=== PATIENT | male | born 1950 | race Caucasian/White ===

== ENCOUNTER → 2016-04-26 | Outpatient (CLI) | payer OTHER ==
[2016-04-26 09:00] LABS: Basophils % (A) 0 %; CH 32.1; CHCM 37.3; Eosinophils # (A) 0.1 k/uL (0-0.7); Eosinophils % (A) 2 %; HCT 43.6 % (39.0-53.0); HDW 3.53; HGB 15.4 gm/dL (13.0-17.5); Hyperchromasia Slight; Luc # (Auto) 0.17; Luc % (Auto) 2; Lymphocytes # (A) 2.5 k/uL (1.0-4.8); Lymphocytes % (A) 34 %; MCH 30.5 pg (25.0-35.0); MCHC 35.3 g/dL (31.0-37.0); MCV 86.4 fL (80.0-100.0); Monocytes # (A) 0.5 k/uL (0-1.0); Monocytes % (A) 7 %; Neutrophils # (A) 4.2 k/uL (1.3-7.7); Neutrophils % (A) 56 %; Poikilocytosis Slight; RBC 5.05 m/uL (4.30-5.90); RDW 13.8 % (11.5-15.5); WBC 7.4 k/uL (3.8-10.6); WBC (Perox) 7.71
[2016-04-26 10:18] LABS: Calcium 9.5 mg/dL (8.4-10.2); Total Protein 6.5 g/dL (6.3-8.2)
== END | disposition home or self-care (01) ==
LOC: LABWHC1 07:55
PROVIDERS: ATTEND Internal Medicine
DX: Z00.00 Encounter for general adult medical examination without abnormal findings (principal); E78.2 Mixed hyperlipidemia; I10 Essential (primary) hypertension; E03.9 Hypothyroidism, unspecified; E27.1 Primary adrenocortical insufficiency; E29.1 Testicular hypofunction; Z12.5 Encounter for screening for malignant neoplasm of prostate
CPT/HCPCS: 80061; 80053; 84443; 85025; 84402; 84403; 36415; G0103

== ENCOUNTER → 2017-04-16 | Outpatient (CLI) | payer MEDICARE ==
[2017-04-16 09:52] LABS: HCT 43.1 % (39.0-53.0); HGB 14.4 gm/dL (13.0-17.5); MCH 30.7 pg (25.0-35.0); MCHC 33.4 g/dL (31.0-37.0); MCV 91.8 fL (80.0-100.0); Mean Platelet Volume 6.7; Platelet Count 182 k/uL (150-450); Poikilocytosis Slight; RBC 4.69 m/uL (4.30-5.90); RDW 15.9 % (11.5-15.5); WBC 8.8 k/uL (3.8-10.6)
[2017-04-16 10:04] LABS: Partial Thromboplastin Time 22.5 sec (22.0-30.0); Prothrombin Time 9.9 sec (9.0-12.0)
[2017-04-16 10:08] LABS: Appearance,Urine Clear (Clear); Bilirubin,Urine Negative (Negative); Blood,Urine Small (Negative); Color,Urine Yellow; Glucose,Urine (UA) Negative (Negative); Ketones,Urine Negative (Negative); Leukocyte Esterase,Urine Negative (Negative); Mucus,Urine Rare /hpf; Nitrite,Urine Negative (Negative); Protein,Urine Negative (Negative); RBC,Urine 4 /hpf (0-5); Specific Gravity,Urine 1.017 (1.001-1.035); Urobilinogen,Urine <2.0 mg/dL (<2.0); WBC,Urine <1 /hpf (0-5)
[2017-04-16 10:24] LABS: Albumin 4.3 g/dL (3.5-5.0); Calcium 9.8 mg/dL (8.4-10.2); Potassium 3.5 mmol/L (3.5-5.1); Total Bilirubin 0.7 mg/dL (0.2-1.3); Total Protein 6.7 g/dL (6.3-8.2)
== END | disposition home or self-care (01) ==
LOC: LABPAT 09:09
PROVIDERS: ATTEND Orthopaedic Surgery Sports Medicine
DX: Z01.812 Encounter for preprocedural laboratory examination (principal); Z79.01 Long term (current) use of anticoagulants
CPT/HCPCS: 36415; 80053; 81001; 85027; 85610; 85730; 87070

== ENCOUNTER → 2017-05-07 | Outpatient (CLI) | payer MEDICARE ==
[2017-05-07 08:54] LABS: Basophils % (A) 0 %; Eosinophils # (A) 0.1 k/uL (0-0.7); Eosinophils % (A) 2 %; HGB 14.9 gm/dL (13.0-17.5); Hyperchromasia Slight; Lymphocytes # (A) 2.4 k/uL (1.0-4.8); Lymphocytes % (A) 29 %; MCH 31.5 pg (25.0-35.0); MCHC 35.5 g/dL (31.0-37.0); MCV 88.6 fL (80.0-100.0); Mean Platelet Volume 6.3; Monocytes # (A) 0.5 k/uL (0-1.0); Monocytes % (A) 6 %; Neutrophils % (A) 62 %; Platelet Count 198 k/uL (150-450); Poikilocytosis Slight; RBC 4.75 m/uL (4.30-5.90); RDW 13.9 % (11.5-15.5); WBC 8.1 k/uL (3.8-10.6)
[2017-05-07 09:11] LABS: Albumin 4.3 g/dL (3.5-5.0); Calcium 9.4 mg/dL (8.4-10.2); Potassium 3.8 mmol/L (3.5-5.1); Total Bilirubin 0.7 mg/dL (0.2-1.3); Total Protein 6.6 g/dL (6.3-8.2)
== END | disposition home or self-care (01) ==
LOC: LABWHC1 08:15
PROVIDERS: ATTEND Internal Medicine Endocrinology, Diabetes & Metabolism
DX: E06.3 Autoimmune thyroiditis (principal); E23.0 Hypopituitarism; E27.1 Primary adrenocortical insufficiency
CPT/HCPCS: 36415; 80053; 84244; 85025

== ENCOUNTER → 2017-05-08 | Outpatient (CLI) | payer MEDICARE ==
[2017-05-08 08:43] LABS: Basophils % (A) 0 %; Eosinophils # (A) 0.1 k/uL (0-0.7); Eosinophils % (A) 2 %; HCT 41.2 % (39.0-53.0); HGB 14.4 gm/dL (13.0-17.5); Lymphocytes # (A) 2.4 k/uL (1.0-4.8); Lymphocytes % (A) 27 %; MCHC 34.9 g/dL (31.0-37.0); MCV 88.9 fL (80.0-100.0); Mean Platelet Volume 7.1; Monocytes # (A) 0.5 k/uL (0-1.0); Monocytes % (A) 6 %; Neutrophils # (A) 5.7 k/uL (1.3-7.7); Neutrophils % (A) 64 %; Platelet Count 171 k/uL (150-450); Poikilocytosis Slight; RBC 4.63 m/uL (4.30-5.90); WBC 8.9 k/uL (3.8-10.6)
[2017-05-08 11:54] LABS: T4, Free (Free Thyroxine) 1.01 ng/dL (0.78-2.19)
== END | disposition home or self-care (01) ==
LOC: LABWHC1 07:53
PROVIDERS: ATTEND Internal Medicine
DX: E55.9 Vitamin D deficiency, unspecified (principal); H81.10 Benign paroxysmal vertigo, unspecified ear; I10 Essential (primary) hypertension; E27.1 Primary adrenocortical insufficiency; E29.1 Testicular hypofunction
CPT/HCPCS: 36415; 80061; 82306; 84402; 84403; 84439; 84443; 84481; 85025

== ENCOUNTER → 2017-05-21 | Outpatient (CLI) | payer MEDICARE ==
[2017-05-21 08:36] LABS: HCT 41.6 % (39.0-53.0); HGB 14.6 gm/dL (13.0-17.5); MCH 31.9 pg (25.0-35.0); MCV 91.2 fL (80.0-100.0); Mean Platelet Volume 6.4; Platelet Count 161 k/uL (150-450); Poikilocytosis Slight; RBC 4.56 m/uL (4.30-5.90); RDW 14.2 % (11.5-15.5)
[2017-05-21 08:38] LABS: Appearance,Urine Clear (Clear); Bilirubin,Urine Negative (Negative); Blood,Urine Negative (Negative); Color,Urine Yellow; Glucose,Urine (UA) Negative (Negative); Ketones,Urine Negative (Negative); Leukocyte Esterase,Urine Negative (Negative); Nitrite,Urine Negative (Negative); Protein,Urine Negative (Negative); Specific Gravity,Urine 1.015 (1.001-1.035); Urobilinogen,Urine <2.0 mg/dL (<2.0)
[2017-05-21 08:43] LABS: Partial Thromboplastin Time 23.6 sec (22.0-30.0); Prothrombin Time 10.2 sec (9.0-12.0)
[2017-05-21 08:53] LABS: Albumin 4.3 g/dL (3.5-5.0); Calcium 9.9 mg/dL (8.4-10.2); Potassium 3.8 mmol/L (3.5-5.1); Total Bilirubin 0.8 mg/dL (0.2-1.3); Total Protein 6.6 g/dL (6.3-8.2)
== END | disposition home or self-care (01) ==
LOC: LABPAT 08:09
PROVIDERS: ATTEND Orthopaedic Surgery Sports Medicine
DX: Z01.812 Encounter for preprocedural laboratory examination (principal); Z51.81 Encounter for therapeutic drug level monitoring; Z79.01 Long term (current) use of anticoagulants
CPT/HCPCS: 80053; 81003; 85027; 85610; 85730

== ENCOUNTER → 2017-05-31 | Outpatient (CLI) | payer MEDICARE | END | disposition home or self-care (01) | LOC: LABWHC1 07:43 | PROVIDERS: ATTEND Internal Medicine Endocrinology, Diabetes & Metabolism | DX: E27.1 Primary adrenocortical insufficiency (principal); E23.0 Hypopituitarism; E06.3 Autoimmune thyroiditis | CPT/HCPCS: 36415; 84402; 84403 ==

== ENCOUNTER 2017-06-06 12:55 | Inpatient (IN) | payer MEDICARE ==
[2017-05-31 15:53] VITALS: BMI 26.4
[~2017-06-06 12:55] MED LIST: ACETAMINOPHEN TAB 500 MG TAB PO ONE; CLINDAMYCIN 900 MG in DEXTROSE 5% IN WATER 50 ML IVPB ONE; MELOXICAM 7.5 MG TAB PO ONE; ROPIVACAINE 246.25 MG, EPINEPHrine 0.5 MG, KETOROLAC 30 MG, cloNIDine HCL/PF 80 MCG, WA... MISCELLANE ONE; TRANEXAMIC ACID 1,000 MG in SODIUM CHLORIDE 0.9% 50 ML IVPB ONE; VANCOMYCIN IV PER PHARMACY 1 EACH MISC MISCELLANE PRN; fentaNYL (PF) 50 MCG/ML 2 ML AMP IV PRN
[2017-06-06] MEDS: LACTATED RINGERS 1,000 ML IV SCH ×4 (13:52→23:44)
[2017-06-06] MEDS: VANCOMYCIN 1,500 MG in SODIUM CHLORIDE 0.9% 250 ML IVPB ONE ×2 (14:00→14:05)
[2017-06-06] MEDS ORDERED: ceFAZolin 1,000 MG in DEXTROSE/WATER 1 50ML.BAG IVPB STA (14:09)
[2017-06-06] MEDS: ONDANSETRON 4 MG/2 ML VIAL IVP ONE ×2 (14:14→23:39)
[2017-06-06 14:40] LABS: Glucose,Whole Blood 82 mg/dL (75-99)
[2017-06-06] MEDS ORDERED: HYDROCORTISONE SUCCINATE 100 MG/2 ML VIAL IVP ONE (15:21)
[2017-06-06] MEDS ORDERED: MIDAZOLAM 2 MG/2 ML VIAL IVP ONE (15:45)
[2017-06-06] MEDS ORDERED: DIAZEPAM 5 MG TAB PO PRN (16:06)
[2017-06-06] MEDS ORDERED: MAGNESIUM HYDROXIDE 2,400 MG/10 ML CUP PO PRN (16:06)
[2017-06-06] MEDS ORDERED: TEMAZEPAM 15 MG CAP PO PRN (16:06)
[2017-06-06] MEDS ORDERED: hydrOXYzine PAMOATE 25 MG CAP PO PRN (16:06)
[2017-06-06] MEDS ORDERED: ONDANSETRON 4 MG/2 ML VIAL IVP PRN (16:06)
[2017-06-06] MEDS ORDERED: ACETAMINOPHEN TAB 325 MG TAB PO PRN (16:06)
[2017-06-06] MEDS ORDERED: HYDROmorphone 0.5 MG/0.5 ML SYRINGE IVP PRN ×3 (16:06)
[2017-06-06] MEDS ORDERED: HYDROcodone/APAP 10-325MG 1 EACH TAB PO PRN (16:06)
[2017-06-06] MEDS ORDERED: NA PHOS,M-B/NA PHOS,DI-BA 133 ML ENEMA RECTAL PRN (16:06)
[2017-06-06] MEDS ORDERED: BISACODYL 10 MG SUPP RECTAL PRN (16:06)
[2017-06-06] MEDS ORDERED: NALOXONE 0.4 MG/ML 1 ML VIAL IV PRN (16:06)
[2017-06-06] MEDS ORDERED: PROPOFOL 10 MG/ML 20 ML VIAL IV ONE (16:25)
[2017-06-06] MEDS ORDERED: fentaNYL (PF) 50 MCG/ML 2 ML AMP ONE (16:25)
[2017-06-06] MEDS ORDERED: MIDAZOLAM 2 MG/2 ML VIAL ONE (16:25)
[2017-06-06] MEDS ORDERED: diphenhydrAMINE 50 MG/ML 1 ML VIAL ONE (16:25)
[2017-06-06] MEDS ORDERED: SODIUM CHLORIDE 0.9% 50 ML with ceFAZolin 1,000 MG IV ONE ×2 (16:34)
[2017-06-06] MEDS ORDERED: CLINDAMYCIN 1,800 MG in SODIUM CHLORIDE 0.9% IRRIGATIO 3,000 ML IRRIGATION ONE (16:40)
[2017-06-06] MEDS ORDERED: ceFAZolin 3,000 MG in SODIUM CHLORIDE 0.9% IRRIGATIO 3,000 ML IRRIGATION ONE (16:57)
[2017-06-06] MEDS ORDERED: WARFARIN 2.5 MG TAB PO ONE (18:30)
--- NOTE | 2017-06-06 19:37 | XR ---
PROCEDURE: XR knee limited RT DATE AND TIME: 06/06/2017 6:45 PM REFERRING PHYSICIAN: Kishor Alan CLINICAL INDICATION: PHH, Evaluation for Postop abnormality and alignment TECHNIQUE: Department protocol. COMPARISON: None FINDINGS: AP and crosstable lateral views were obtained. The TKR appears anatomic in its position and alignment. Postprocedural changes are noted anteriorly, but no unexpected post procedural findings. IMPRESSION: Postoperative study.
--- NOTE | 2017-06-06 22:30 | P.CONS ---
History of Present Illness - Reason for Consult Consult date: 06/07/17 medical management Requesting physician: Eleuterio Sawyer - Chief Complaint elective right TKA - History of Present Illness 66-year-old male with past medical history of Couderay disease, patient presented with history of progressive degenerative joint disease of the right knee for which conservative medical management has not provided the desired comfort and relief for which he decided with his surgeon to have right knee joint replacement. He tolerated procedure well patient was seen postoperative he tolerated liquid diet, passed urine utilizing intermittent catheter, patient reported passing gases, denies any nausea or vomiting denies any abdominal pain headache denies any chest pain or trouble breathing. Patient is chronically on Cortef and currently was switched to IV hydrocortisone for the perioperative management of Couderay disease. Review of Systems Constitutional: Patient denies fever, denies chills, denies night sweating, denies significant weight changes Eyes: Patient denies visual changes, denies eye pain ENT: Patient denies ear pain, denies rhinorrhea, denies sore throat Cardiovascular: Patient denies chest pain, denies exertional dyspnea, denies peripheral leg edema, denies orthopnea, denies paroxysmal nocturnal dyspnea Respiratory:Patient denies cough, denies wheezing, denies shortness of breath Gastrointestinal: Patient denies diarrhea, denies constipation, denies nausea , denies vomiting, denies abdominal pain Genitourinary: Patient denies dysuria, denies hematuria, denies changes in urinary habits, denies genital lesions Musculoskeletal: Patient denies muscle pain, reports long history of osteoarthritis Psychiatric: Patient denies changes in mood or memory, denies suicidal ideation, denies anxiety Endocrine: Patient denies heat intolerance, denies cold intolerance, denies excessive thirst, denies polyuria Neurological: Patient denies focal neurologic deficits, denies weakness, denies numbness, denies tingling Hem/Lymphatic: Patient denies bleeding tendency, denies bruising, denies swollen lymph glands Allergic/Immun: Patient denies recent allergic reactions Skin: Patient denies rashes, denies pruritis, denies ulcers Past Medical History Past Medical History: Hypertension Additional Past Medical History / Comment(s): ADDISONS DISEASE. ,ASTHMA A CHILD., VARICOSE VEINS, OCCASIONAL BACK PAIN. History of Any Multi-Drug Resistant Organisms: None Reported Past Surgical History: Orthopedic Surgery, Tonsillectomy Additional Past Surgical History / Comment(s): LEFT ANKLE FX WITHS SURGERY X3. Past Anesthesia/Blood Transfusion Reactions: No Reported Reaction Past Psychological History: No Psychological Hx Reported Smoking Status: Never smoker Past Alcohol Use History: None Reported Past Drug Use History: None Reported - Past Family History Mother Family Medical History: No Reported History family Family Medical History: Coronary Artery Disease (CAD) (Patient reports strong history of coronary artery disease on his paternal side of the family) Medications and Allergies Home Medications Medication Instructions Recorded Confirmed Type Allopurinol [Zyloprim] 100 mg PO DAILY 05/31/17 06/06/17 History Cholecalciferol [Vitamin D3] 1,000 unit PO DAILY 05/31/17 06/06/17 History Depo-Testosterone Injection 1 dose IM QMONTH 05/31/17 06/06/17 History Fludrocortisone [Florinef] 0.1 mg PO DAILY 05/31/17 06/06/17 History Hydrocortisone [Cortef] 10 mg PO W/SUPPER 05/31/17 06/06/17 History Hydrocortisone [Cortef] 20 mg PO QAM 05/31/17 06/06/17 History Lactulose 10 gm PO BID 05/31/17 06/06/17 History Levothyroxine Sodium [Synthroid] 75 mcg PO DAILY 05/31/17 06/06/17 History Metoprolol Succinate [Toprol XL] 25 mg PO DAILY 05/31/17 06/06/17 History Allergies Allergy/AdvReac Type Severity Reaction Status Date / Time Penicillins AdvReac Unknown Unknown Verified 06/06/17 19:33 aspirin AdvReac INSTRUCTED Verified 06/06/17 19:33 NOT TO TAKE DUE TO ADDISONS. Physical Exam Vitals: Vital Signs Temp Pulse Resp BP Pulse Ox 06/06/17 19:10 75 16 118/67 99 06/06/17 18:55 73 16 120/68 100 06/06/17 18:40 71 16 120/68 100 06/06/17 18:25 98.4 F 89 14 128/70 99 06/06/17 13:24 97.7 F 72 16 170/100 100 Intake and Output 06/06/17 06/06/17 06/06/17 06:59 14:59 22:59 Intake Total 350 751 Output Total 100 Balance 350 651 Intake: IV 350 751 Output: Estimated Blood Loss 100 Constitutional: No acute distress, conversant, pleasant Eyes: Anicteric sclerae, moist conjunctiva, no lid-lag Pupils equal round reactive to light ENMT: NC/AT Oropharynx clear, no erythema, exudates Neck: Supple, FROM, no masses, or JVD No carotid bruits No thyromegaly Lungs: Clear to auscultation Clear to percussion Normal respiratory effort, no accessory muscle use Cardiovascular: Heart regular in rate and rhythm, No murmurs, gallops, or rubs No peripheral edema Abdominal: Soft Nontender, no guarding, rebound or rigidity Abdomen moving with respiration Normoactive bowel sounds No hepatomegaly, No splenomegaly No palpable mass No abdominal wall hernia noted Skin: Skin tanning Normal temperature, tone, texture, turgor No induration No subcutaneous nodules No rash, lesions No ulcers Extremities: Right knee with surgical dressing looks clean intact and dry No digital cyanosis No clubbing Pedal pulses intact and symmetrical Radial pulses intact and symmetrical No calf tenderness Psychiatric: Alert and oriented to person, place and time Appropriate affect fair judgment Neuro Muscles Strength 5/5 in all 4 extremities (except for limited exam over the right lower extremity due to pain postoperatively) Sensation to light touch grossly present throughout Cranial nerves II-XII grossly intact No focal sensory deficits Lymphatics: no palpable cervical or supraclavicular , or inguinal lymph nodes Assessment and Plan (1) Couderay disease Narrative/Plan: Patient was switched appropriately to IV hydrocortisone agree with the current management Normally I would suggest switching the patient back to his normal regimen on postoperative day #2 Continue to monitor blood sugars and vital signs Current Visit: Yes Status: Acute Code(s): E27.1 - PRIMARY ADRENOCORTICAL INSUFFICIENCY SNOMED Code(s): 217569110 (2) Osteoarthritis of right knee Narrative/Plan: Postoperative day 0 patient tolerated procedure well Pain is well controlled Further management per orthopedic DVT prophylaxis postoperatively currently on Coumadin per ortho Current Visit: Yes Status: Acute Code(s): M17.11 - UNILATERAL PRIMARY OSTEOARTHRITIS, RIGHT KNEE SNOMED Code(s): 349963077292599 (3) Hypertension Narrative/Plan: Currently controlled continue with metoprolol Current Visit: Yes Status: Acute Code(s): I10 - ESSENTIAL (PRIMARY) HYPERTENSION SNOMED Code(s): 27605663 (4) Hypothyroidism Narrative/Plan: continue levothyroxine Current Visit: Yes Status: Chronic Code(s): E03.9 - HYPOTHYROIDISM, UNSPECIFIED SNOMED Code(s): 03563771 (5) DVT prophylaxis Narrative/Plan: On by mouth Coumadin per orthopedic recommendations for postoperative management Current Visit: Yes Status: Acute Code(s): ZTE9375 - SNOMED Code(s): 271557757 Plan: Thank you for allowing us to participate in the care of this patient. Do not hesitate to contact us with questions. Someone can be reached from the [facility] [place] hospitalist group at all hours of the day at [phone].
--- NOTE | 2017-06-06 23:26 | OP ---
OPERATIVE REPORT DATE OF PROCEDURE: 06/06/2017 SURGEON: Eleuterio Sawyer MD [employer]: Kishor BUITRAGO PREOPERATIVE DIAGNOSIS: Right knee osteoarthrosis. POSTOPERATIVE DIAGNOSIS: Right knee osteoarthrosis. OPERATION: Right total knee arthroplasty. ANESTHESIA: Spinal with sedation. ESTIMATED BLOOD LOSS: 100 mL. TOURNIQUET TIME: 54 minutes at 250 mmHg. COMPLICATIONS: None apparent. DRAINS: None. DISPOSITION: Postanesthesia Care Unit. INDICATIONS: Jose Francisco is a very pleasant 66-year-old male with longstanding history of right knee pain. History and physical examination were consist with advanced right knee osteoarthrosis. He has been through significant nonoperative management up to this point. Further treatment options were discussed and he has decided to go forward with right total knee arthroplasty. The risks of the procedure were discussed with him in detail. These risks include but are not limited to risk of infection, nerve damage, bleeding, pain and a risk of deep vein thrombosis which could lead to fatal pulmonary embolism. There is also a risk of loosening of the implant which could require revision operation. The patient understands these risks. All of his questions were answered to his satisfaction. Appropriate informed consent was obtained. DESCRIPTION OF PROCEDURE: The patient was identified in the preoperative holding area. The surgical site was marked by both the patient myself. He was given 1 gram of vancomycin IV for prophylactic purposes. Of note, we did give him a gram of Ancef during the case. He had no adverse reaction to Ancef while under the care of Anesthesia. He was then transferred to the operative suite, where he was placed supine on the operative table. Spinal anesthetic was then administered and dosed per the anesthesia department without apparent complications. Examination under anesthesia was then performed. The patient was approximately 5 degrees shy of full extension. He had 100 degrees of flexion, and the medial collateral ligament, lateral collateral ligament and posterior cruciate ligaments were stable. Tourniquet was then placed high on the right upper thigh, well padded in preparation for surgery. The patient's right lower extremity was then prepped and draped in the usual sterile fashion. Standard surgical pause was then undertaken to ensure that we were operating on the correct site and that appropriate preoperative antibiotics had been given. All staff in the room were in agreement and we proceeded. The outlines of the patella were marked with a surgical pen. A planned 12 cm vertical incision centered over the patella was marked with the surgical pen. The leg was then exsanguinated with an Esmarch dressing. The knee was then flexed and the tourniquet inflated to 250 mmHg. The total tourniquet time for the procedure was 54 minutes. Incision was then made with a 10 blade scalpel. Dissection was carried down sharply to the overlying fascia. Great care was taken to minimize the skin flaps. The knee was then exposed using a standard medial parapatellar approach. A small cuff of quadriceps tendon was left for suturing. He was in a bit of varus preoperatively. A standard medial release was then made. The superficial medial collateral ligament was dissected off of the bone around to the posterior aspect of the proximal tibia. The medial meniscus was then excised as well. The lateral meniscus was also released anteriorly. The leg was then externally rotated. The patella was everted. The knee was flexed. The retractors were then placed to protect the collateral ligaments. I then proceeded to remove the infrapatellar fat pad. This was excised sharply tangentially with fibers of the patellar tendon. I then proceeded to remove peripheral osteophytes. This was done with a rongeur. I then proceeded with the distal femoral resection. He did have a small flexion contracture. I planned to take an extra 2 mm of bone from the distal femur. The femoral canal was then entered in the midline of the femur approximately 10 mm anterior to the origin of the posterior cruciate ligament. The lidia was then advanced down the center of the femur and placed intramedullary. Based on preoperative radiographs, the angle between the anatomic and mechanical axis of the femur was approximately 4 to 5 degrees. The valgus angle of the distal femoral cutting guide was then set at 4 degrees for the right knee. The distal femoral cutting guide was then advanced over the intramedullary lidia. This was seated firmly against the femur. I then as mentioned planned to take 11 mm off the distal femur. The cutting block was then secured onto the femur with pins. The jig was then removed. The distal femoral cut was made through the slot of the block. The pins were then removed and the distal femoral cutting block was removed. The accuracy of the distal femoral cuts was checked with 2 flat bars. I then proceeded with femoral sizing. The posterior referencing sizing guide was held firmly against the resected distal surface of the femur. Posterior condyles were resting on the posterior plane of the guide. The sizing stylus was then placed onto the anterior femur. The size was measured as a size 9. I then assessed for femoral rotation. The plan was for 3 degrees of external rotation. Three degrees of external rotation was placed onto the jig. These holes were then marked. I then confirmed the rotation by 3 separate methods. This was done using epicondylar axis as well as Whitesides line and posterior referencing. It was deemed that the external rotation was proper. I then went forward with placing the femoral cutting block. This was placed over the previously placed pin holes. The Maikel wing was then placed onto the anterior slots to ensure that we would not notch the anterior femur with the anterior femoral cut. I then proceeded with the anterior femoral cut. This was flush with the anterior cortex of the femur. Posterior cuts were then made followed by the anterior chamfer cut and then the posterior chamfer cut. The cutting block was then removed. Throughout the resection, the collateral ligaments were protected with retractors. I then placed a trial size 9 femur. It fit very nicely medial to lateral and fit flush with the distal end of the femur. The drill holes were then made. I then proceeded with the tibial cut. I planned for a cruciate-retaining knee. The guide was placed and set for varus, valgus and for slope. The height was set for an approximate 2 mm resection from the medial tibial plateau, which was the lower side. I was happy with the alignment and the amount of resection. The cutting block was then pinned to the proximal tibia. The alignment lidia was removed and the proximal tibia was resected with a reciprocating saw. Again this was done with retractors protecting the collateral ligaments as well as the posterior cruciate ligament. I then proceeded to evaluate the flexion and extension gaps. A 10 mm block was placed. The flexion and extension gaps were equal. I then proceeded with resection of the posterior osteophytes. He had mild posterior osteophytes. This was done using a curved osteotome. This resected the posterior osteophytes, and posterior capsule stripping was also done off the posterior aspect of the femur at this time. The osteophytes were removed. I then proceeded with resection of the patella. The thickness of the patella was measured using the caliper. The thickness was 25 mm. The thickness of the anticipated patellar dome was taken into account. Resection was then performed and confirmed to be equal in 4 quadrants using a caliper. Approximately 14 mm of bone remained after the resection. A 38 x 9.5 mm standard patellar trial was then placed. The holes were then drilled and the trial was then placed. I then proceeded with sizing the tibial plate. A size G tibial plate fit very nicely. I then placed the trial femur, the tibial tray and the patellar button. A 10 mm trial tibial insert was also placed. The components fit very nicely. He had full extension and flexion. The extension and flexion gaps were equal and stable to both varus and valgus stress. The patella tracked appropriately. Tibial tray rotation was marked with a Bovie. This was externally rotated properly. I then proceeded with tibial preparation. I first drilled the femoral holes and removed the femoral component. The tibial tray was then set for proper external rotation as well as mediolateral placement onto the tibia. It was then pinned into place. I then proceeded with punching the keel. I then decided to proceed with cementing of all of our components. The knee was thoroughly irrigated with sterile saline solution via pulse lavage. The lateral geniculate artery was identified and cauterized. All blood was removed from the bone of the tibia, femur and patella with pulse lavage. I then proceeded with cementing. Two packs of antibiotic bone cement were prepared on the back table by the surgical instrument technician. I then proceed with cementing the tibia first. The cement was impacted into the keel as well as deeply seated into the bone. A second coat of cement was then placed. The tibia was then impacted into place. Excess cement was removed with Vicki's and jokers. I then proceeded with cementing of the femoral component. The femoral component was also cemented using standard technique. Excess cement was removed. A 10 mm trial insert was then placed into the knee. It was brought into full extension with a constant axial load placed until the cement had hardened. The patellar component was then cemented. This was held firmly with a compressive device until the cement had dried. When the cement had dried, the knee was taken out of extension. All excess cement was removed from around the prosthesis. I then trialed the knee with a 10 mm insert. The flexion and extension gaps were appropriate. The knee was stable. It came into full extension. I decided to go forward with a 10 mm cross-linked cruciate-retaining tibial insert. The polyethylene was then placed on the tibial tray and locked into place. The knee was then reduced. The knee was again further irrigated with sterile saline solution with antibiotic added. The tourniquet was then deflated. The total tourniquet time for the procedure was 54 minutes at 250 mmHg. Final components were a Misti Persona size 9 cruciate-retaining femoral component, a size G tibial tray, a 10 mm medial- congruent cruciate-retaining polyethylene insert, and a 38 x 9.5 patella. I then proceeded with closure. Again the knee was thoroughly irrigated. The quadriceps tendon and the medial retinaculum were reapproximated with #2 Ethibond suture. The extensor mechanism was then closed with a running #2 Quill suture. Subcutaneous tissues were then closed with 2-0 Vicryl interrupted suture. The skin was closed with a running 3-0 Quill suture. Dermabond was applied to the incision. Sterile compressive dressings were then applied. All sponge and needle counts were deemed correct prior to closure. The patient tolerated the procedure without apparent complication. He was transferred to the recovery room in stable condition. MMODL / IJN: [id number] /
[2017-06-06] MEDS: SENNOSIDES-DOCUSATE SODIUM 1 EACH TAB PO SCH (23:48)
[2017-06-07] MEDS: HYDROCORTISONE SUCCINATE 100 MG/2 ML VIAL IV SCH ×3 (00:12→15:21)
[2017-06-07] MEDS: ceFAZolin IN SWFI 2 GM/20 ML SYRINGE IVP SCH ×2 (00:13→09:17)
[2017-06-07] MEDS: LACTATED RINGERS 1,000 ML IV SCH ×3 (03:17→21:14)
[2017-06-07 07:18] LABS: INR 1.1 (<1.2)
[2017-06-07 07:24] LABS: Basophils % (A) 0 %; Eosinophils % (A) 0 %; HCT 38.4 % (39.0-53.0); HGB 13.5 gm/dL (13.0-17.5); Hyperchromasia Slight; Lymphocytes % (A) 9 %; MCHC 35.2 g/dL (31.0-37.0); Mean Platelet Volume 6.3; Monocytes # (A) 0.4 k/uL (0-1.0); Monocytes % (A) 4 %; Neutrophils # (A) 9.1 k/uL (1.3-7.7); Neutrophils % (A) 86 %; Platelet Count 149 k/uL (150-450); Poikilocytosis Slight; RBC 4.37 m/uL (4.30-5.90); RDW 13.3 % (11.5-15.5); WBC 10.5 k/uL (3.8-10.6)
[2017-06-07] MEDS: traMADol 50 MG TAB PO PRN ×3 (08:27→21:09)
[2017-06-07] MEDS: LEVOTHYROXINE 75 MCG TAB PO SCH (09:17)
[2017-06-07] MEDS: METOPROLOL SUCCINATE (ER) 25 MG TAB.ER.24H PO SCH (09:17)
[2017-06-07] MEDS: ALLOPURINOL 100 MG TAB PO SCH (09:17)
[2017-06-07] MEDS: LACTULOSE 20 GM/30 ML CUP PO SCH ×2 (09:17→21:11)
--- NOTE | 2017-06-07 12:16 | P.PN ---
Subjective Progress Note Date: 06/07/17 Principal diagnosis: Knee pain/severe osteoarthritis Patient is doing well, still having pain in his knee but is tolerable. Has been working with physical therapy and actually walked around the [place] this [place]. Objective - Vital Signs Vital signs: Vital Signs Temp 98.7 F 06/07/17 07:00 Pulse 91 06/07/17 07:00 Resp 16 06/07/17 07:00 BP 158/80 06/07/17 07:00 Pulse Ox 99 06/07/17 07:00 Intake & Output 06/06/17 06/07/17 06/07/17 18:59 06:59 18:59 Intake Total 701 400 Output Total 100 1150 Balance 601 -750 Weight 88.451 kg 88.451 kg Intake: IV 701 400 Output: Urine 1150 Estimated Blood Loss 100 Other: Voiding Method Toilet # Voids 1 1 - Exam Constitutional: No acute distress, conversant, pleasant Eyes:Anicteric sclerae, moist conjunctiva, no lid-lag, PERRLA, ENMT: Oropharynx clear, no erythema, exudates Neck: Supple, FROM, no masses, or JVD, No carotid bruits, No thyromegaly Lungs: Clear to auscultation, Clear to percussion, Normal respiratory effort, no accessory muscle use Cardiovascular: Heart regular in rate and rhythm, No murmurs, gallops, or rubs, No peripheral edema Abdominal: Soft, Nontender, no guarding, rebound or rigidity, Normoactive bowel sounds, No hepatomegaly, No splenomegaly, No palpable mass Skin: Normal temperature, tone, texture, turgor, no induration, No subcutaneous nodules, No rash, lesions, No ulcers Extremities: Right knee with surgical dressing looks clean intact and dry. No digital cyanosis, No clubbing, Pedal pulses intact and symmetrical, Radial pulses intact and symmetrical, No calf tenderness Psychiatric: Alert and oriented to person, place and time, appropriate affect, intact judgement Neuro: Muscles Strength 5/5 in all 4 extremities, Sensation to light touch grossly present throughout, Cranial nerves II-XII grossly intact, no focal sensory deficits - Labs CBC & Chem 7: 06/07/17 06:50 Labs: Abnormal Lab Results - Last 24 Hours (Table) 06/07/17 Range/Units 06:50 Hct 38.4 L (39.0-53.0) % Plt Count 149 L (150-450) k/uL Neutrophils # 9.1 H (1.3-7.7) k/uL Assessment and Plan Plan: (1) El disease Continue IV hydrocortisone, Plan for discharge tomorrow, can switch back to baseline steroid dose upon discharge. (2) Osteoarthritis of right knee S/P total right knee arthroplasty Postoperative day 1 patient tolerated procedure well Pain is well controlled Further management per orthopedic (3) Essential hypertension Currently controlled continue with metoprolol (4) Hypothyroidism Continue levothyroxine (5) DVT prophylaxis On coumadin per orthopedic recommendations for postoperative management
[2017-06-07] MEDS: MULTIVITAMINS, THERA 1 EACH TAB PO SCH (12:18)
[2017-06-07] MEDS ORDERED: HYDROmorphone 2 MG TAB PO PRN ×3 (14:42→14:43)
[2017-06-07] MEDS ORDERED: WARFARIN 7.5 MG TAB PO ONE (18:00)
[2017-06-07] MEDS: SENNOSIDES-DOCUSATE SODIUM 1 EACH TAB PO SCH (21:11)
[2017-06-08] MEDS: HYDROCORTISONE SUCCINATE 100 MG/2 ML VIAL IV SCH (00:05)
[2017-06-08 01:42] VITALS: RESP 16
[2017-06-08] MEDS: HYDROcodone/APAP 10-325MG 1 EACH TAB PO PRN ×2 (06:25→12:32)
[2017-06-08] MEDS: LEVOTHYROXINE 75 MCG TAB PO SCH (06:25)
[2017-06-08] MEDS ORDERED: HYDROCORTISONE SUCCINATE 100 MG/2 ML VIAL IV ONE ×2 (07:00→16:00)
[2017-06-08 07:51] LABS: INR 1.2 (<1.2); Prothrombin Time 11.3 sec (9.0-12.0)
[2017-06-08] MEDS: LACTATED RINGERS 1,000 ML IV SCH (08:25)
[2017-06-08] MEDS: ALLOPURINOL 100 MG TAB PO SCH (08:26)
[2017-06-08] MEDS: LACTULOSE 20 GM/30 ML CUP PO SCH (08:27)
[2017-06-08] MEDS: METOPROLOL SUCCINATE (ER) 25 MG TAB.ER.24H PO SCH (08:28)
[2017-06-08 08:51] VITALS: BP 127/71; PULSE 87; TEMP 98.7
--- NOTE | 2017-06-08 09:39 | P.DS ---
Providers Date of admission: 06/06/17 12:55 Expected date of discharge: 06/08/17 Attending physician: Eleuterio Sawyer Consults: 06/06/17 16:06 Consult Physician Routine Consulting Provider: Yulissa Knutson Consult Reason/Comments: post op medical management Do you want consulting provider notified?: Yes 06/06/17 16:11 Consult Physician Routine Consulting Provider: Honey Parrish Consult Reason/Comments: post op ryan's management Do you want consulting provider notified?: Yes Primary care physician: Bienvenido Schroeder - Discharge Diagnosis(es) (1) Status post total knee replacement, right Current Visit: Yes Status: Acute (2) Osteoarthritis of right knee Current Visit: Yes Status: Acute Hospital Course: This is a 66-year-old male who was last seen with complaint of continued right knee pain. The patient has a known history of degenerative arthritis of the right knee and presents to discuss surgical options. After discussion and consideration the patient elects to proceed with total right knee arthroplasty. The patient is seen preoperatively by Dr. Schroeder and cleared for surgery. The patient is admitted to [facility] for total right knee arthroplasty. The procedures performed without complication or sequelae. Patient is doing well postoperatively. Vital signs are stable at discharge. Labs are stable at discharge. the patient is ambulating well with walker with minimal assistance. 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 He has instructions per Dr. boss for his prednisone. The patient is discharged to home on postop day #2 pending medical clearance. Please see orders and refer to the med rec for accurate list of medications. Plan - Discharge Summary Discharge Rx Participant: Yes New Discharge Prescriptions: New Docusate [Colace] 100 mg PO BID #60 capsule HYDROcodone/APAP 7.5-325MG [[place] 7.5-325] 1 - 2 each PO Q6HR PRN #90 tab PRN Reason: Pain Warfarin [Coumadin] 2.5 mg PO DAILY #28 tab No Action Hydrocortisone [Cortef] 10 mg PO W/SUPPER Hydrocortisone [Cortef] 20 mg PO QAM Fludrocortisone [Florinef] 0.1 mg PO DAILY Allopurinol [Zyloprim] 100 mg PO DAILY Metoprolol Succinate [Toprol XL] 25 mg PO DAILY Levothyroxine Sodium [Synthroid] 75 mcg PO DAILY Cholecalciferol [Vitamin D3] 1,000 unit PO DAILY Lactulose 10 gm PO BID Depo-Testosterone Injection 1 dose IM QMONTH Discharge Medication List Allopurinol [Zyloprim] 100 mg PO DAILY 05/31/17 [History] Cholecalciferol [Vitamin D3] 1,000 unit PO DAILY 05/31/17 [History] Depo-Testosterone Injection 1 dose IM QMONTH 05/31/17 [History] Fludrocortisone [Florinef] 0.1 mg PO DAILY 05/31/17 [History] Hydrocortisone [Cortef] 10 mg PO W/SUPPER 05/31/17 [History] Hydrocortisone [Cortef] 20 mg PO QAM 05/31/17 [History] Lactulose 10 gm PO BID 05/31/17 [History] Levothyroxine Sodium [Synthroid] 75 mcg PO DAILY 05/31/17 [History] Metoprolol Succinate [Toprol XL] 25 mg PO DAILY 05/31/17 [History] Docusate [Colace] 100 mg PO BID #60 capsule 06/07/17 [Rx] HYDROcodone/APAP 7.5-325MG [[place] 7.5-325] 1 - 2 each PO Q6HR PRN #90 tab [Rx] Warfarin [Coumadin] 2.5 mg PO DAILY #28 tab 06/07/17 [Rx] Follow up Appointment(s)/Referral(s): [facility], [NON-STAFF] - Eleuterio Sawyer MD [STAFF PHYSICIAN] - 2 Weeks Ambulatory/Diagnostic Orders: Prothrombin Time INR [LAB.AMB] Location: Determined By Patient Activity/Diet/Wound Care/Special Instructions: Keep wound clean and dry Take meds as directed Follow-up with Dr. Sawyer in office Weight bear as tolerated Discharge Disposition: HOME WITH HOME HEALTH SERVICES
--- NOTE | 2017-06-08 10:00 | P.PN ---
Subjective Progress Note Date: 06/08/17 Principal diagnosis: s/p knee pain controlled, good appetite,no chest pain Objective - Vital Signs Vital signs: Vital Signs Temp 98.7 F 06/08/17 07:00 Pulse 87 06/08/17 07:00 Resp 16 06/08/17 07:00 BP 127/71 06/08/17 07:00 Pulse Ox 95 06/08/17 07:00 Intake & Output 06/07/17 06/08/17 06/08/17 18:59 06:59 18:59 Intake Total 680 1080 Balance 680 1080 Weight 88.451 kg Intake: Oral 680 1080 Other: Voiding Method Toilet Toilet # Voids 3 2 - Exam gen:alert and oriented lungs:clear to auscultation heart:s1s2 abdomen:soft and depressible,non tender ext:no edema - Labs CBC & Chem 7: 06/07/17 06:50 Labs: Abnormal Lab Results - Last 24 Hours (Table) 06/08/17 Range/Units 07:18 INR 1.2 H (<1.2) Assessment and Plan (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 upon discharge Current Visit: Yes Status: Acute Code(s): E27.1 - PRIMARY ADRENOCORTICAL INSUFFICIENCY SNOMED Code(s): 995762261 (2) Hypertension Narrative/Plan: controlled continue metoprolol Current Visit: Yes Status: Acute Code(s): I10 - ESSENTIAL (PRIMARY) HYPERTENSION SNOMED Code(s): 97440252 (3) Status post total knee replacement, right Current Visit: Yes Status: Acute Code(s): Z96.651 - PRESENCE OF RIGHT ARTIFICIAL KNEE JOINT SNOMED Code(s): 9195860224777 (4) Hypothyroidism Narrative/Plan: continue synthroid Current Visit: Yes Status: Chronic Code(s): E03.9 - HYPOTHYROIDISM, UNSPECIFIED SNOMED Code(s): 86229792
[2017-06-08] MEDS: MULTIVITAMINS, THERA 1 EACH TAB PO SCH (12:32)
[2017-06-09] MEDS ORDERED: HYDROCORTISONE SUCCINATE 100 MG/2 ML VIAL IV SCH ×2 (07:00→16:00)
== END 2017-06-08 16:14 | disposition home health service (06) | DRG 470 ==
LOC: 2ORMAIN 12:55 → 3SUR 18:23
PROVIDERS: ADMIT Orthopaedic Surgery Sports Medicine; ATTEND Orthopaedic Surgery Sports Medicine
PROC: 0SRC0J9 Replacement of Right Knee Joint with Synthetic Substitute, Cemented, Open Approach (ICD-10-PCS; principal; 2017-06-06 17:00)
DX: M17.11 Unilateral primary osteoarthritis, right knee (principal); E27.1 Primary adrenocortical insufficiency; I10 Essential (primary) hypertension; E03.9 Hypothyroidism, unspecified; Z79.52 Long term (current) use of systemic steroids; Z79.890 Hormone replacement therapy; Z79.899 Other long term (current) drug therapy; Z88.6 Allergy status to analgesic agent; Z88.0 Allergy status to penicillin; Z82.49 Family history of ischemic heart disease and other diseases of the circulatory system
CPT/HCPCS: 85025; 85610; 88300

== ENCOUNTER → 2017-10-25 | Outpatient (CLI) | payer MEDICARE ==
[2017-10-25 08:08] LABS: HCT 42.7 % (39.0-53.0); HGB 15.2 gm/dL (13.0-17.5); MCHC 35.6 g/dL (31.0-37.0); Platelet Count 165 k/uL (150-450); RBC 4.91 m/uL (4.30-5.90); RDW 14.6 % (11.5-15.5)
[2017-10-25 09:41] LABS: Erythrocyte Sedimentation Rate 2 mm/hr (0-15)
== END | disposition home or self-care (01) ==
LOC: LABWHC1 07:55
PROVIDERS: ATTEND Orthopaedic Surgery Sports Medicine
DX: M25.561 Pain in right knee (principal); M17.11 Unilateral primary osteoarthritis, right knee; Z96.651 Presence of right artificial knee joint; Z47.1 Aftercare following joint replacement surgery; Z98.890 Other specified postprocedural states
CPT/HCPCS: 36415; 83520; 85027; 85652; 86140

== ENCOUNTER → 2018-05-05 | Outpatient (CLI) | payer MEDICARE ==
[2018-05-05 09:37] LABS: Basophils % (A) 0 %; Eosinophils # (A) 0.2 k/uL (0-0.7); Eosinophils % (A) 2 %; HCT 44.4 % (39.0-53.0); HGB 15.6 gm/dL (13.0-17.5); Lymphocytes # (A) 1.5 k/uL (1.0-4.8); Lymphocytes % (A) 16 %; MCH 31.5 pg (25.0-35.0); MCHC 35.1 g/dL (31.0-37.0); MCV 89.7 fL (80.0-100.0); Monocytes # (A) 0.4 k/uL (0-1.0); Monocytes % (A) 5 %; Neutrophils % (A) 76 %; Platelet Count 143 k/uL (150-450); RBC 4.95 m/uL (4.30-5.90); RDW 14.2 % (11.5-15.5); WBC 9.2 k/uL (3.8-10.6)
[2018-05-05 17:31] LABS: Albumin 4.4 g/dL (3.80-4.90); Albumin/Globulin Ratio 2.59 (1.20-2.10); Anion Gap 10.3 mmol/L (4.00-12.00); Calcium 9.3 mg/dL (8.7-10.3); Carbon Dioxide 26.7 mmol/L (21.6-31.8); Globulin 1.7 g/dL (1.6-3.3); Potassium 4.4 mmol/L (3.5-5.5); Total Bilirubin 0.9 mg/dL (0.3-1.2); Total Protein 6.1 g/dL (6.2-8.2)
[2018-05-05 17:37] LABS: T4, Free (Free Thyroxine) 1.2 ng/dL (0.80-1.80)
== END ==
LOC: LABWHC1 07:41
PROVIDERS: ATTEND Internal Medicine Endocrinology, Diabetes & Metabolism
DX: E06.3 Autoimmune thyroiditis (principal); E27.1 Primary adrenocortical insufficiency; E23.0 Hypopituitarism; N18.2 Chronic kidney disease, stage 2 (mild); E55.9 Vitamin D deficiency, unspecified
CPT/HCPCS: 36415; 80053; 82306; 84439; 84443; 85025

== ENCOUNTER → 2019-04-28 | Outpatient (CLI) | payer MEDICARE ==
[2019-04-28 19:38] LABS: Albumin 4.6 g/dL (3.80-4.90); Albumin/Globulin Ratio 2.88 (1.60-3.17); Anion Gap 8.3 mmol/L (4.00-12.00); Calcium 9.4 mg/dL (8.7-10.3); Carbon Dioxide 26.7 mmol/L (21.6-31.8); Globulin 1.6 g/dL (1.6-3.3); Non-African American GFR(CKD) 47.5 (60.0-200.0); Potassium 4.3 mmol/L (3.5-5.5); Total Bilirubin 0.8 mg/dL (0.3-1.2); Total Protein 6.2 g/dL (6.2-8.2)
[2019-04-28 19:47] LABS: T4, Free (Free Thyroxine) 1.2 ng/dL (0.80-1.80)
== END | disposition home or self-care (01) ==
LOC: LABWHC1 10:56
PROVIDERS: ATTEND Internal Medicine
DX: N18.2 Chronic kidney disease, stage 2 (mild) (principal); E23.0 Hypopituitarism; E06.3 Autoimmune thyroiditis
CPT/HCPCS: 36415; 80053; 84402; 84403; 84439; 84443

== ENCOUNTER 2021-11-11 13:26 | Emergency (ER) | payer MEDICARE ==
[2021-11-11 13:31] VITALS: TEMP 98.4
[2021-11-11] MEDS ORDERED: ONDANSETRON 4 MG/2 ML VIAL IVP STA (13:51)
[2021-11-11] MEDS ORDERED: SODIUM CHLORIDE 0.9% 1,000 ML IV STA (13:51)
[2021-11-11] MEDS ORDERED: HYDROCORTISONE SUCCINATE 100 MG/2 ML VIAL IV STA (14:08)
[2021-11-11 14:17] LABS: Basophils % (A) 0 %; Eosinophils # (A) 0.2 k/uL (0-0.7); Eosinophils % (A) 2 %; HCT 45.3 % (39.0-53.0); HGB 15.4 gm/dL (13.0-17.5); Lymphocytes # (A) 0.6 k/uL (1.0-4.8); Lymphocytes % (A) 5 %; MCH 30.8 pg (25.0-35.0); MCV 90.5 fL (80.0-100.0); Mean Platelet Volume 6.5; Monocytes # (A) 0.5 k/uL (0-1.0); Monocytes % (A) 5 %; Neutrophils # (A) 9.2 k/uL (1.3-7.7); Neutrophils % (A) 87 %; Platelet Count 135 k/uL (150-450); RBC 5.01 m/uL (4.30-5.90); RDW 14.1 % (11.5-15.5); WBC 10.6 k/uL (3.8-10.6)
[2021-11-11 14:32] LABS: Albumin 4.1 g/dL (3.5-5.0); Calcium 8.6 mg/dL (8.4-10.2); Potassium 3.9 mmol/L (3.5-5.1); Total Bilirubin 1.6 mg/dL (0.2-1.3); Total Protein 6.1 g/dL (6.3-8.2)
--- NOTE | 2021-11-11 16:15 | ED ---
General Adult HPI - General Chief complaint: Nausea/Vomiting/Diarrhea Stated complaint: Covid+, vomiting Time Seen by Provider: 11/11/21 13:30 Source: patient Mode of arrival: ambulatory Limitations: no limitations - History of Present Illness Initial comments: 71-year-old male presents emergency room in with nausea vomiting which started last night. States that he was up all night throwing up and unable to hold down any food or drink. He took a Covid test this morning and found to be positive. He called his primary care doctor. Primary care recommended that he have antibody infusion because of his history of El's disease. He did not take any extra doses of the steroids. He states that his symptoms have completely stopped at this time. No longer feels nauseated. Did not have any chest pain or shortness of breath. No fevers. Denies headaches, body aches. No abdominal pain. No changes in his bowel or bladder habits. He did not attempt to take any medications at home for her symptoms. No other alleviating, precipitating or modifying factors - Related Data Home Medications Medication Instructions Recorded Confirmed Cholecalciferol [Vitamin D3 (25 1,000 unit PO DAILY 05/31/17 06/06/17 Mcg = 1000 Iu)] Depo-Testosterone Injection 1 dose IM QMONTH 05/31/17 06/06/17 Fludrocortisone [Florinef] 0.1 mg PO DAILY 05/31/17 06/06/17 Lactulose 10 gm PO BID 05/31/17 06/06/17 Levothyroxine Sodium [Synthroid] 75 mcg PO DAILY 05/31/17 06/06/17 Metoprolol Succinate [Toprol XL] 25 mg PO DAILY 05/31/17 06/06/17 allopurinoL [Zyloprim] 100 mg PO DAILY 05/31/17 06/06/17 Previous Rx's Medication Instructions Recorded Docusate [Colace] 100 mg PO BID #60 capsule 06/07/17 HYDROcodone/APAP 7.5-325MG [[place] 1 - 2 each PO Q6HR PRN #90 tab 06/07/17 7.5-325] Warfarin [Coumadin] 2.5 mg PO DAILY #28 tab 06/07/17 Hydrocortisone [Cortef] 10 mg PO ONCE #1 tablet 06/08/17 Hydrocortisone [Cortef] 10 mg PO ONCE #1 tablet 06/08/17 Hydrocortisone [Cortef] 10 mg PO W/SUPPER #0 06/08/17 Hydrocortisone [Cortef] 20 mg PO QAM #0 06/08/17 Hydrocortisone [Cortef] 30 mg PO ONCE #1 tablet 06/08/17 Nirmatrelvir/Ritonavir [Paxlovid 1 each PO BID #1 pack 11/11/21 150-100 mg Pack (Eua)] Ondansetron Odt [Zofran Odt] 4 mg PO Q8HR PRN #20 tab 11/11/21 Allergies Allergy/AdvReac Type Severity Reaction Status Date / Time Penicillins AdvReac Unknown Unknown Verified 11/11/21 13:30 aspirin AdvReac INSTRUCTED Verified 11/11/21 13:30 NOT TO TAKE DUE TO ADDISONS. Review of Systems ROS Statement: Those systems with pertinent positive or pertinent negative responses have been documented in the HPI. ROS Other: All systems not noted in ROS Statement are negative. Past Medical History Past Medical History: Hypertension Additional Past Medical History / Comment(s): addisons disease History of Any Multi-Drug Resistant Organisms: None Reported Past Surgical History: Orthopedic Surgery Additional Past Surgical History / Comment(s): LEFT ANKLE FX WITHS SURGERY X3. Past Anesthesia/Blood Transfusion Reactions: No Reported Reaction Past Psychological History: No Psychological Hx Reported Smoking Status: Never smoker Past Alcohol Use History: None Reported Past Drug Use History: None Reported - Past Family History Mother Family Medical History: No Reported History family Family Medical History: Coronary Artery Disease (CAD) (Patient reports strong history of coronary artery disease on his paternal side of the family) General Exam Limitations: no limitations General appearance: alert, in no apparent distress Head exam: Present: atraumatic, normocephalic, normal inspection Eye exam: Present: normal appearance, PERRL, EOMI. Absent: scleral icterus, conjunctival injection, periorbital swelling ENT exam: Present: normal exam, mucous membranes moist Neck exam: Present: normal inspection. Absent: tenderness, meningismus, lymphadenopathy Respiratory exam: Present: normal lung sounds bilaterally. Absent: respiratory distress, wheezes, rales, rhonchi, stridor Cardiovascular Exam: Present: regular rate, normal rhythm, normal heart sounds. Absent: systolic murmur, diastolic murmur, rubs, gallop, clicks GI/Abdominal exam: Present: soft, normal bowel sounds. Absent: distended, tenderness, guarding, rebound, rigid Extremities exam: Present: normal inspection, full ROM, normal capillary refill. Absent: tenderness, pedal edema, joint swelling, calf tenderness Back exam: Present: normal inspection Neurological exam: Present: alert, oriented X3, CN II-XII intact Psychiatric exam: Present: normal affect, normal mood Skin exam: Present: warm, dry, intact, normal color. Absent: rash Course Vital Signs 11/11/21 11/11/21 13:28 17:02 Temperature 98.4 F Pulse Rate 92 73 Respiratory 20 16 Rate Blood Pressure 102/59 121/55 O2 Sat by Pulse 98 Oximetry Medical Decision Making - Medical Decision Making Upon arrival patient is placed in room 25. There are history and physical exam was performed. IV access was established. Patient was given a liter bolus of normal saline, 4 mg of Zofran and 100 mg of Solu-Cortef. Laboratory studies are conducted. We did swab him for Covid here and his Covid is not detected. I did offer to repeat the swab however the patient does not want to. I did offer him treatment with Paxlovid because of his positive home test and history of immunosuppression. Patient agreed to this. He will be discharged home with Paxil of it and Zofran. Instructed to increase fluid intake. Follow up with his doctor in 2-4 days if he has any new or worsening symptoms he needs to return to the emergency room. Patient agreed to the treatment plan and was discharged home in stable condition - Lab Data Result diagrams: 11/11/21 14:03 11/11/21 14:03 Lab Results 11/11/21 11/11/21 11/11/21 Range/Units 14:03 14:03 14:03 WBC 10.6 (3.8-10.6) k/uL RBC 5.01 (4.30-5.90) m/uL Hgb 15.4 (13.0-17.5) gm/dL Hct 45.3 (39.0-53.0) % MCV 90.5 (80.0-100.0) fL MCH 30.8 (25.0-35.0) pg MCHC 34.0 (31.0-37.0) g/dL RDW 14.1 (11.5-15.5) % Plt Count 135 L (150-450) k/uL MPV 6.5 Neutrophils % 87 % Lymphocytes % 5 % Monocytes % 5 % Eosinophils % 2 % Basophils % 0 % Neutrophils # 9.2 H (1.3-7.7) k/uL Lymphocytes # 0.6 L (1.0-4.8) k/uL Monocytes # 0.5 (0-1.0) k/uL Eosinophils # 0.2 (0-0.7) k/uL Basophils # 0.0 (0-0.2) k/uL Sodium 134 L (137-145) mmol/L Potassium 3.9 (3.5-5.1) mmol/L Chloride 103 (98-107) mmol/L Carbon Dioxide 23 (22-30) mmol/L Anion Gap 8 mmol/L BUN 25 H (9-20) mg/dL Creatinine 1.88 H (0.66-1.25) mg/dL Est GFR (CKD-EPI)AfAm 41 (>60 ml/min/1.73 sqM) Est GFR (CKD-EPI)NonAf 36 (>60 ml/min/1.73 sqM) Glucose 98 (74-99) mg/dL Calcium 8.6 (8.4-10.2) mg/dL Total Bilirubin 1.6 H (0.2-1.3) mg/dL AST 24 (17-59) U/L ALT 15 (4-49) U/L Alkaline Phosphatase 51 (38-126) U/L Total Protein 6.1 L (6.3-8.2) g/dL Albumin 4.1 (3.5-5.0) g/dL Coronavirus (PCR) Not Detected (Not Detectd) Disposition Clinical Impression: El disease, Nausea & vomiting Disposition: HOME SELF-CARE Condition: Stable Instructions (If sedation given, give patient instructions): Acute Nausea and Vomiting (ED) Additional Instructions: Please take the nausea and paxlovid as directed. Return to the ED for any new or worsening symptoms. See your doctor in 2-4 days. Prescriptions: Nirmatrelvir/Ritonavir [Paxlovid 150-100 mg Pack (Eua)] 1 each PO BID #1 pack Ondansetron Odt [Zofran Odt] 4 mg PO Q8HR PRN #20 tab PRN Reason: Nausea Is patient prescribed a controlled substance at d/c from ED?: No Referrals: Jamie Tidwell DO [Primary Care Provider] - 1-2 days Time of Disposition: 16:17
[2021-11-11 17:04] VITALS: BP 121/55; PULSE 73; RESP 16
== END 2021-11-11 17:04 | disposition home or self-care (01) ==
LOC: EC 13:26
DX: E27.1 Primary adrenocortical insufficiency (principal); R11.2 Nausea with vomiting, unspecified; I10 Essential (primary) hypertension; Z20.822 Contact with and (suspected) exposure to COVID-19; Z88.0 Allergy status to penicillin; Z88.6 Allergy status to analgesic agent; Z79.899 Other long term (current) drug therapy
CPT/HCPCS: 36415; 80053; 85025; 87635; 99284; 96374; 96375; 96361; J1720; J2405

== ENCOUNTER → 2022-09-20 | Outpatient (CLI) | payer MEDICARE ==
[2022-09-20 15:51] LABS: Blood Urea Nitrogen 23.2 mg/dL (9.0-27.0); Carbon Dioxide 26.8 mmol/L (21.6-31.8); Chloride 107 mmol/L (96-109); Potassium 4.4 mmol/L (3.5-5.5); Sodium 143 mmol/L (135-145)
[2022-09-20 20:39] LABS: HCT 39.9 % (39.6-50.0); HGB 13.6 d/dL (12.0-15.0); MCH 30.6 pg (27.0-32.0); MCHC 34.1 d/dL (32.0-37.0); MCV 89.7 FL (80.0-97.0); Mean Platelet Volume 9.4 FL (9.5-12.2); NRBC Per 100 WBC 0 X 10*3/uL (0.00-0.01); Platelet Count 154 X 10*3/uL (140-440); RBC 4.45 X 10*6/uL (4.40-5.60); RDW 14.6 % (11.5-14.5); WBC 7.94 X 10*3/uL (4.50-10.00)
== END | disposition home or self-care (01) ==
LOC: LABPAT 09:10
PROVIDERS: ATTEND Internal Medicine
DX: Z01.812 Encounter for preprocedural laboratory examination (principal); I35.0 Nonrheumatic aortic (valve) stenosis
CPT/HCPCS: 36415; 80051; 82565; 84520; 85027

== ENCOUNTER 2022-09-24 11:28 | Day surgery (SDC) | payer MEDICARE ==
[~2022-09-24 11:28] MED LIST changes: -ACETAMINOPHEN TAB 500 MG TAB PO ONE; +ALPRAZolam 0.25 MG TAB PO PRN; +ALPRAZolam 0.5 MG TAB PO PRN; +ATORVASTATIN 80 MG TAB PO STA; -CLINDAMYCIN 900 MG in DEXTROSE 5% IN WATER 50 ML IVPB ONE; +HEPARIN SODIUM,PORCINE 10,000 UNIT in SODIUM CHLORIDE 0.9% 1,000 ML IRRIGATION PRN; +HEPARIN SODIUM,PORCINE 2,500 UNIT in SODIUM CHLORIDE 0.9% 250 ML IRRIGATION PRN; -MELOXICAM 7.5 MG TAB PO ONE; +NITROGLYCERIN SL TABS 0.4 MG TAB SUBLINGUAL PRN; -ROPIVACAINE 246.25 MG, EPINEPHrine 0.5 MG, KETOROLAC 30 MG, cloNIDine HCL/PF 80 MCG, WA... MISCELLANE ONE; +SODIUM CHLORIDE 0.9% 1,000 ML in EMPTY BAG 1 BAG IV ONE; -TRANEXAMIC ACID 1,000 MG in SODIUM CHLORIDE 0.9% 50 ML IVPB ONE; -VANCOMYCIN IV PER PHARMACY 1 EACH MISC MISCELLANE PRN; -fentaNYL (PF) 50 MCG/ML 2 ML AMP IV PRN
[2022-09-24] MEDS ORDERED: HYDROCORTISONE SUCCINATE 100 MG/2 ML VIAL IV ONE (11:30)
[2022-09-24] MEDS ORDERED: ASPIRIN 325 MG TAB PO STA (12:19)
[2022-09-24] MEDS ORDERED: SODIUM CHLORIDE 0.9% 1,000 ML IV ONE (12:19)
[2022-09-24 12:41] VITALS: RESP 16; TEMP 97.8
[2022-09-24] MEDS ORDERED: fentaNYL (PF) 50 MCG/ML 2 ML AMP ONE ×2 (13:11→13:18)
[2022-09-24] MEDS: MIDAZOLAM 2 MG/2 ML VIAL IV ONE ×4 (13:14→13:21)
[2022-09-24] MEDS ORDERED: BENZOCAINE SPRAY 1 CAN TOPICAL ONE (13:14)
[2022-09-24] MEDS: fentaNYL (PF) 50 MCG/ML 2 ML AMP IV ONE ×4 (13:14→13:21)
[2022-09-24] MEDS ORDERED: MIDAZOLAM 2 MG/2 ML VIAL IV ONE (13:23)
--- NOTE | 2022-09-24 13:41 | P.TEE ---
Description of Procedure(s): Procedure performed: Transesophageal Echocardiogram with color flow doppler, pulsed wave doppler and continuous wave doppler, moderate conscious sedation Moderate conscious sedation: Moderate conscious sedation was supplied with direct supervision of myself using Versed and Fentanyl. Complications: none Indications: Mitral regurgitation PROCEDURE: After the risks, benefits and alternatives of the above mentioned procedure was explained in detail with the patient, informed consent was obtained. Patient was brought to the lab in a fasting state. Patient was given IV Versed and Fentanyl for sedation. The throat was sprayed with Hurricane to anesthetize the throat. A lubricated Omni probe was then introduced into the esophagus and stomach and multiple views were obtained. 2D echo with color flow doppler, pulsed wave doppler and continuous wave doppler was utilized. Agitated saline bubbles were injected to assess for any intra-atrial shunt. The probe was then removed. Patient tolerated the procedure well. Patient was transferred to the post procedure area in stable and satisfactory condition. FINDINGS: 1. The aortic valve is tricuspid and functioning normally. 2. The mitral valve has prolapse of P2 segment with partial flail with severe mitral regurgitation, PISA radius of 1.2cm at Nyquist of 40 with left upper and right upper pulmonary vein systolic flow reversal 3. Tricuspid valve is normal with mild tricuspid regurgitation. 4. The interatrial septum is intact. No evidence of PFO. 5. Left atrial appendage is free of clot. 6. Left ventricular ejection fraction 55%
[2022-09-24] MEDS ORDERED: LIDOCAINE 1% INJ 10MG/ML (5 ML VIAL-PF) SQ ONE (13:47)
[2022-09-24] MEDS ORDERED: IV FLUID CONTINUATION 1,000 ML IV ONE (13:51)
[2022-09-24] MEDS ORDERED: HEPARIN SODIUM 1,000 UN/ML (10ML VL) IV ONE (13:52)
[2022-09-24] MEDS ORDERED: IOPAMIDOL-370 100ML BTL INJ ONE (13:58)
--- NOTE | 2022-09-24 13:58 | P.CARDCATH ---
Description of Procedure: PROCEDURES PERFORMED: Left heart catheterization, bilateral coronary angiography INDICATION: Severe mitral regurgitation CONSENT:I have discussed the risks, benefits and alternative therapies for the above-mentioned procedure and for both sedation/analgesia as well as necessary blood product administration, if indicated, as they pertain to this patient. The patient has indicated understanding and acceptance of the risks and procedures discussed. PROCEDURE: After the risks, benefits and alternatives of the above mentioned procedure explained in detail with the patient, informed consent was obtained. Patient was taken to the catheterization lab and prepped and draped in usual fashion. 1% lidocaine was used to anesthetize the right radial artery. A 6- [place] sheath was placed in the right radial artery using modified Seldinger technique. Left coronary angiography was performed with a 5-[place] JL 3.5 catheter and right coronary angiography was performed with a 5-[place] JR5 catheter in various views. A 5-[place] FR5 catheter was inserted into the left ventricle and pressure measurements were obtained. The right radial sheath was removed and a TR band was placed with hemostasis achieved. The patient tolerated the procedure well. Patient was transported back to the post catheterization holding area in stable condition. Conscious Sedation: Patient was monitored under the direct supervision of myself for conscious sedation using Versed and fentanyl for a total duration of 10 minutes HEMODYNAMICS: Aorta: 105/58 LV: 114/6, LVEDP 20 SELECTIVE CORONARY ARTERIOGRAPHY: LEFT MAIN: The left main is a large caliber vessel which bifurcates into the LAD and circumflex. There is no significant stenosis. LEFT ANTERIOR DESCENDING CORONARY ARTERY: LAD is a large caliber vessel which wraps around to the apex. There is a long proximal to mid tandem 85% and 90% stenosis with otherwise mild luminal irregularities of the mid to distal LAD. LEFT CIRCUMFLEX CORONARY ARTERY: Left circumflex is a moderate caliber vessel with mild luminal irregularities. RIGHT CORONARY ARTERY: The right coronary artery is a large caliber vessel which gives off a PDA and PLV branch and is the dominant vessel. There is no significant stenosis. FINAL IMPRESSION: 1. CAD as described above including proximal and mid LAD 85-90% stenosis and otherwise mild luminal irregularities 2. Elevated left sided filling pressures PLAN: 1. Aggressive risk factor modification per most recent ACC/AHA guidelines. 2. Evaluate for mitral valve repair and MIGUEL to LAD bypass.
[2022-09-24 18:25] VITALS: BP 127/63; PULSE 80
== END 2022-09-24 17:21 | disposition home or self-care (01) ==
LOC: CATHCVL 11:28
PROVIDERS: ATTEND Internal Medicine
DX: I08.1 Rheumatic disorders of both mitral and tricuspid valves (principal); I25.10 Atherosclerotic heart disease of native coronary artery without angina pectoris; I12.9 Hypertensive chronic kidney disease with stage 1 through stage 4 chronic kidney disease, or unspecified chronic kidney disease; N18.9 Chronic kidney disease, unspecified; E11.9 Type 2 diabetes mellitus without complications; E27.2 Addisonian crisis; Z82.49 Family history of ischemic heart disease and other diseases of the circulatory system; Z79.899 Other long term (current) drug therapy
CPT/HCPCS: 93312; 93320; 93325; 93458; C1769; C1894; J2250; J1720; J2001; J3010; J1644; Q9967

== ENCOUNTER → 2022-10-02 | Outpatient (CLI) | payer MEDICARE ==
--- NOTE | 2022-10-02 10:52 | P.PN ---
Progress Note - Text Progress Note Date: 10/02/22 5 meter walk test completed without difficulty: #1 2.67 sec #2 3.03 sec #3 2.73 sec STS risk score calculated and discussed with patient
--- NOTE | 2022-10-02 12:54 | US ---
EXAMINATION TYPE: US vein mapping BIL DATE OF EXAM: 10/02/2022 11:49 AM COMPARISON: NONE CLINICAL INDICATION: Male, 72 years old with history of OPEN HEART; pre op cardiac surgery SIDE PERFORMED: Bilateral TECHNIQUE: Lower extremity saphenous vein is examined and measured utilizing real time linear array sonography. Patient History: Smoker: no Previous DVT: no Vascular Surgery: no Discoloration: no Hypertension: yes Diabetes: no Paralysis: no Varicosities: yes Edema: no DUPLEX FINDINGS: Greater Saphenous: Color flow seen Measurements in mm: Right Greater Saphenous: Groin: 5.5 x 5.6 mm High Thigh: 3.5 x 3.8 mm Mid Thigh: 3.0 x 3.4 mm Above Knee: 2.8 x 3.1 mm Knee: 3.0 x 3.4 mm Below Knee: 2.0 x 2.5 mm Mid Calf: 3.5 x 4.4 mm At Ankle: 2.8 x 3.3 mm Left Greater Saphenous: Groin: 3.6 x 4.2 mm High Thigh: 3.4 x 4.1 mm Mid Thigh: 2.3 x 2.7 mm Above Knee: 2.7 x 3.3 mm Knee: 2.1 x 2.5 mm Below Knee: 2.0 x 2.6 mm Mid Calf: 1.6 x 2.0 mm At Ankle: 1.8 x 2.5 mm IMPRESSION: 1. Bilateral GSV measurements listed above. 2. Performing surgeon to determine viability as conduit.
--- NOTE | 2022-10-02 13:24 | US ---
EXAMINATION TYPE: US arterial LE single level DATE OF EXAM: 10/02/2022 11:44 AM CLINICAL INDICATION: Male, 72 years old with history of OPEN HEART; pre op cardiac surgery History of: Smoker: no Hypertension: yes Diabetic: no Hyperlipidemia: no TIA/CVA: no Previous Vascular Surgery: no UT: no Vascular Ulcers: no Claudication: no Gangrene: no Doppler Waveforms: Right: Multiphasic Left: Multiphasic Right Brachial Pressure: 159 Left Brachial Pressure: 151 Ankle-Brachial Indices: Right: 1.14 Left: 1.06 IMPRESSION: 1. Normal bilateral KATHLEEN indices.
--- NOTE | 2022-10-02 15:50 | XR ---
EXAMINATION TYPE: XR chest 2V DATE OF EXAM: 10/02/2022 COMPARISON: None HISTORY: 72-year-old male presurgical evaluation prior to CABG TECHNIQUE: PA and lateral views FINDINGS: The cardiomediastinal silhouette, aorta, and pulmonary vasculature are within normal limits. Lungs an d pleural spaces are clear. IMPRESSION: No acute cardiopulmonary process.
--- NOTE | 2022-10-02 16:04 | US ---
EXAMINATION TYPE: US carotid duplex BILAT DATE OF EXAM: 10/02/2022 COMPARISON: NONE CLINICAL INDICATION: Male, 72 years old with history of OPEN HEART; pre op cardiac surgery TECHNIQUE: Carotid duplex ultrasound examination. Indirect Doppler criteria was utilized. FINDINGS: EXAM MEASUREMENTS: RIGHT: Peak Systolic Velocity (PSV) cm/sec ----- Right CCA: 114 ----- Right ICA: 110 ----- Right ECA: 143 ICA/CCA ratio: 0.96 RIGHT: End Diastole cm/sec ----- Right CCA: 14.3 ----- Right ICA: 31.2 ----- Right ECA: 10.7 LEFT: Peak Systolic Velocity (PSV) cm/sec ----- Left CCA: 112 ----- Left ICA: 107 ----- Left ECA: 125 ICA/CCA ratio: 0.96 LEFT: End Diastole cm/sec ----- Left CCA: 23.4 ----- Left ICA: 23.4 ----- Left ECA: 9.7 VERTEBRALS (direction of flow): Right Vertebral: Antegrade Left Vertebral: Antegrade Rhythm: Normal ACTUARIAL TRAINEE NOTES: Mild to moderate plaque right bifurcation. Mild plaque left bifurcation. No eviden ce of significant stenosis IMPRESSION: No hemodynamically significant internal carotid artery stenosis on either side. Criteria for Assigning % of Stenosis / Diameter reduction (Estimation based on the indirect measurements of the internal carotid artery velocities (ICA PSV). 1. Normal (no stenosis)=ICA PSV < 125 cm/s: ratio < 2.0: ICA EDV<40 cm/s. 2. Less than 50% stenosis=ICA PSV < 125 cm/s: ratio < 2.0: ICA EDV<40 cm/s. 3. 50 to 69% stenosis=ICA PSV of 125 to 230 cm/s: ration 2.0 ? 4.0: ICA EDV 40-100 cm/s. 4. Greater than 70% stenosis to near occlusion= ICA PSV > 230 cm/s: ratio > 4.0: ICA EDV > 100 cm/s. 5. Near occlusion= ICA PSV velocities may be low or undetectable: variable ratio and ICA EDV. 6. Total occlusion=unable to detect flow.
[2022-10-03 05:21] LABS: ALT 21 U/L (10-49); AST 20 U/L (14-35); Albumin 4.9 d/dL (3.8-4.9); Albumin/Globulin Ratio 2.72 Ratio (1.60-3.17); Alkaline Phosphatase 64 U/L (41-126); BUN/Creat Ratio 12.44 Ratio (12.00-20.00); Blood Urea Nitrogen 22.4 mg/dL (9.0-27.0); Calcium 9.6 mg/dL (8.7-10.3); Carbon Dioxide 25.6 mmol/L (21.6-31.8); Chloride 105 mmol/L (96-109); Chol/HDL Ratio 4.09 Ratio; Globulin 1.8 d/dL (1.6-3.3); Glucose 75 mg/dL (70-110); LDL Cholesterol,Calculated 130.9 mg/dL (0.0-131.0); Potassium 3.8 mmol/L (3.5-5.5); Sodium 143 mmol/L (135-145); Total Bilirubin 0.5 mg/dL (0.3-1.2); Total Protein 6.7 d/dL (6.2-8.2)
[2022-10-04 01:19] LABS: Magnesium 2.2 mg/dL (1.5-2.4)
[2022-10-04 01:21] LABS: Hepatitis A Antibody IgM Nonreactive; Hepatitis B Core IgM Nonreactive; Hepatitis B Surface Antigen Nonreactive; Hepatitis C IgG Antibody Nonreactive
== END | disposition home or self-care (01) ==
LOC: LABWHC1 09:21
PROVIDERS: ATTEND Thoracic Surgery (Cardiothoracic Vascular Surgery)
DX: Z01.812 Encounter for preprocedural laboratory examination (principal); I51.7 Cardiomegaly; I51.0 Cardiac septal defect, acquired; R94.31 Abnormal electrocardiogram [ECG] [EKG]
CPT/HCPCS: 36415; 71046; 80053; 80061; 80074; 81003; 83036; 83735; 84443; 85027; 85610; 85730; 86850; 86900; 86901; 86920; 87070; 87086; 93005; 93880; 93922; 93970

== ENCOUNTER 2022-10-05 05:33 | Inpatient (IN) | payer MEDICARE ==
[2022-10-02 10:16] LABS: Partial Thromboplastin Time 23.5 sec (22.0-30.0); Prothrombin Time 10.5 sec (9.0-12.0)
[2022-10-02 16:33] LABS: Appearance,Urine Clear (Clear); Bilirubin,Urine Negative (Negative); Blood,Urine Negative (Negative); Color,Urine Yellow (Yellow); Ketones,Urine Negative (Negative); Nitrite,Urine Negative (Negative); PH, Urine 5.5; Specific Gravity,Urine 1.009 (1.001-1.030); Urobilinogen,Urine 0.2 E.U./DL
[2022-10-02 19:15] LABS: HCT 42.4 % (39.6-50.0); HGB 14.3 d/dL (12.0-15.0); MCH 30.6 pg (27.0-32.0); MCHC 33.7 d/dL (32.0-37.0); MCV 90.6 FL (80.0-97.0); Mean Platelet Volume 9.2 FL (9.5-12.2); NRBC Per 100 WBC 0 X 10*3/uL (0.00-0.01); Platelet Count 152 X 10*3/uL (140-440); RBC 4.68 X 10*6/uL (4.40-5.60); RDW 15.4 % (11.5-14.5); WBC 9.51 X 10*3/uL (4.50-10.00)
[~2022-10-05 05:33] MED LIST changes: +ALBUMIN HUMAN 25% 50 ML IV ONE; +ALBUMIN HUMAN 5% 500 ML IVPB ONE; -ALPRAZolam 0.25 MG TAB PO PRN; -ALPRAZolam 0.5 MG TAB PO PRN; +ATORVASTATIN 10 MG TAB PO ONE; -ATORVASTATIN 80 MG TAB PO STA; +CALCIUM CHLORIDE 100 MG/ML 10 ML SYRINGE IV ONE; +CARDIOPLEGIC SOLN (K+ 16 MEQ/L 1,000 ML with SODIUM BICARB (1 MEQ/ML) 20 ML, LIDOCAINE ... PERFUSION ONE; +CHLORHEXIDINE GLUCONATE 15 ML CUP MUCOUS MEM ONE; +CLEVIDIPINE BUTYRATE 25 MG in EMPTY BAG 1 BAG IV ONE; +HEPARIN SODIUM 1,000 UN/ML (10ML VL) IV ONE; -HEPARIN SODIUM,PORCINE 10,000 UNIT in SODIUM CHLORIDE 0.9% 1,000 ML IRRIGATION PRN; -HEPARIN SODIUM,PORCINE 2,500 UNIT in SODIUM CHLORIDE 0.9% 250 ML IRRIGATION PRN; +HEPARIN SODIUM,PORCINE 5,000 UNIT in SODIUM CHLORIDE 0.9% 500 ML 500 ML IV ONE; +INSULIN REGULAR 100 UNIT in SODIUM CHLORIDE 0.9% 100 ML IV ONE; +LACTATED RINGERS 1,000 ML IV ONE; +MAGNESIUM SULFATE 16.24 MEQ in EMPTY SYRINGE 1 SYR IV ONE; +MANNITOL 25% 12.5 GM/50 ML VIAL IV ONE; +METOPROLOL TARTRATE 12.5 MG TAB PO ONE; +NITROGLYCERIN SL TABS 0.4 MG TAB SUBLINGUAL ONE; -NITROGLYCERIN SL TABS 0.4 MG TAB SUBLINGUAL PRN; +NITROGLYCERIN-D5W PMX 25 MG/250 ML BTL IV ONE; +NITROGLYCERIN-D5W PMX 50 MG in DEXTROSE/WATER 1 250ML.BAG IV ONE; +NOREPINEPHRINE 4 MG in SODIUM CHLORIDE 0.9% 250 ML IV ONE; +PAPAVERINE 360 MG in SODIUM CHLORIDE 0.9% 90 ML IV ONE; +PHENYLEPHRINE 10 MG/ML VIAL IV ONE; +PHENYLEPHRINE 40 MG in SODIUM CHLORIDE 0.9% 250 ML IV ONE; +PROTAMINE SULFATE 10 MG/ML 25 ML VIAL IV ONE; +PROTAMINE SULFATE 250 MG in EMPTY BAG 1 BAG IV ONE; +SODIUM BICARB 8.4% 50 ML SYR (1 MEQ/ML) IV ONE; +SODIUM CHLORIDE 0.9% 1,000 ML IV ONE; -SODIUM CHLORIDE 0.9% 1,000 ML in EMPTY BAG 1 BAG IV ONE; +TRANEXAMIC ACID 2,000 MG in SODIUM CHLORIDE 0.9% 80 ML IV ONE; +ceFAZolin 1,000 MG in SODIUM CHLORIDE 0.9% IRRIGATIO 1,000 ML IRRIGATION ONE; +propofoL 1,000 MG/100 ML VIAL IV ONE
[2022-10-05 06:20] LABS: Glucose,Whole Blood 77 mg/dL (70-110)
[2022-10-05] MEDS ORDERED: HYDROCORTISONE SUCCINATE 100 MG/2 ML VIAL IV ONE (07:00)
[2022-10-05] MEDS ORDERED: NITROGLYCERIN-D5W PMX 50 MG/250 ML BOTTLE IV ONE (07:20)
[2022-10-05] MEDS ORDERED: HEPARIN SODIUM,PORCINE 5,000 UNIT/ML 1 ML VIAL ONE (07:20)
[2022-10-05] MEDS ORDERED: ePHEDrine 50 MG/ML 1 ML VIAL ONE (07:20)
[2022-10-05] MEDS ORDERED: ATROPINE SULFATE 0.1 MG/ML 10ML SYRINGE ONE (07:20)
[2022-10-05] MEDS ORDERED: PROTAMINE SULFATE 10 MG/ML 25 ML VIAL IV ONE (07:20)
[2022-10-05] MEDS ORDERED: fentaNYL (PF) 50 MCG/ML 50 ML VIAL ONE (07:20)
[2022-10-05] MEDS ORDERED: IV FLUID CONTINUATION 1,000 ML IV.SOLN ONE (07:20)
[2022-10-05] MEDS ORDERED: MIDAZOLAM HCL 10 MG/10 ML VIAL ONE (07:20)
[2022-10-05] MEDS ORDERED: HYDROCORTISONE SUCCINATE 100 MG/2 ML VIAL ONE (07:20)
[2022-10-05] MEDS ORDERED: PROPOFOL 10 MG/ML 20 ML VIAL IV ONE (07:20)
[2022-10-05] MEDS ORDERED: MIDAZOLAM 2 MG/2 ML VIAL ONE (07:20)
[2022-10-05] MEDS ORDERED: HEPARIN SODIUM,PORCINE 10,000 UNIT/ML 1 ML VIAL ONE (07:20)
[2022-10-05] MEDS ORDERED: TRANEXAMIC 1,000 MG/100ML-NACL PREMIX BAG ONE (07:20)
[2022-10-05] MEDS ORDERED: ELECTROLYTE-R (PH 7.4) 1,000 ML IV.SOLN IV ONE (07:20)
[2022-10-05 08:42] LABS: ABG Base Excess -0.5 mmol/L; ABG Glucose Whole Blood 87 mg/dL (75-99); ABG HCO3 25 mmol/L (21-25); ABG Hematocrit 39 % (34.0-46.0); ABG Ionized Calcium 4.7 mg/dL (4.5-5.3); ABG Lactic Acid Whole Blood 1.2 mmol/L (0.5-1.6); ABG Oxygen Saturation 99.7 % (94-97); ABG PCO2 42 mmHg (35-45); ABG PH 7.38 (7.35-7.45); ABG PO2 326 mmHg (83-108); ABG Potassium Whole Blood 4.2 mmol/L (3.4-4.5); ABG Sodium Whole Blood 140 mmol/L (135-146); ABG TCO2 26 mmol/L (19-24)
[2022-10-05] MEDS ORDERED: DILTIAZEM 125 MG in SODIUM CHLORIDE 0.9% 100 ML IV SCH (09:30)
[2022-10-05] MEDS ORDERED: SODIUM CHLORIDE 0.9% 500 ML 500 ML with HEPARIN SODIUM,PORCINE 5,000 UNIT IV ONE ×2 (10:07)
[2022-10-05] MEDS ORDERED: PAPAVERINE 360 MG in SODIUM CHLORIDE 0.9% 90 ML IV ONE (10:08)
[2022-10-05] MEDS ORDERED: ceFAZolin 1,000 MG in SODIUM CHLORIDE 0.9% 1,000 ML IRRIGATION ONE (10:08)
[2022-10-05 14:12] LABS: Glucose,Whole Blood 124 mg/dL (70-110)
[2022-10-05] MEDS ORDERED: MUPIROCIN 2% OINT 22 GM TUBE NASAL ONE (14:45)
[2022-10-05 14:54] LABS: Glucose,Whole Blood 106 mg/dL (70-110)
[2022-10-05] MEDS ORDERED: hydrALAZINE HCL 20 MG/ML 1 ML VIAL IVP PRN (15:00)
[2022-10-05] MEDS ORDERED: Potassium Replacement Protocol 1 EACH MISC MISCELLANE PRN (15:00)
[2022-10-05] MEDS ORDERED: INSULIN REGULAR 100 UNIT in SODIUM CHLORIDE 0.9% 100 ML IV SCH (15:00)
[2022-10-05] MEDS ORDERED: IPRATROPIUM-ALBUTEROL 3 ML NEB INHALATION PRN (15:00)
[2022-10-05] MEDS: DILTIAZEM 125 MG in SODIUM CHLORIDE 0.9% 100 ML IV SCH (15:00)
[2022-10-05] MEDS ORDERED: Magnesium Replacement Protocol 1 EACH MISC MISCELLANE PRN (15:00)
[2022-10-05] MEDS ORDERED: BENZOCAINE/MENTHOL LOZENG 1 EACH LOZENGE MUCOUS MEM PRN (15:00)
[2022-10-05] MEDS ORDERED: AMIODARONE 450 MG in DEXTROSE 5% IN WATER 250 ML IV PRN ×2 (15:00)
[2022-10-05] MEDS ORDERED: CLEVIDIPINE BUTYRATE 25 MG in EMPTY BAG 1 BAG IV SCH (15:00)
[2022-10-05] MEDS ORDERED: AMIODARONE 360 MG in DEXTROSE 5% IN WATER 200 ML IV PRN ×2 (15:00)
[2022-10-05] MEDS ORDERED: DEXMEDETOMIDINE/0.9% NACL(PMX) 400 MCG in EMPTY BAG 1 BAG IV SCH (15:00)
[2022-10-05] MEDS ORDERED: DEXTROSE 50% SYRINGE 50 ML IVP PRN ×2 (15:00)
--- NOTE | 2022-10-05 15:26 | XR ---
EXAMINATION TYPE: XR chest 1V portable DATE OF EXAM: 10/05/2022 HISTORY: Post Op CABG COMPARISON: 10/02/2022 TECHNIQUE: Single view of the chest is submitted. FINDINGS: Endotracheal tube, NG tube, SG catheter, mediastinal drains and chest tubes are appropriately placed. Post operative changes of CABG. No sizeable pneumothorax. Scattered Pleural-parenchymal opacities may reflect atelectasis. The heart is not enlarged. IMPRESSION: 1. Post operative changes of CABG.
[2022-10-05] MEDS: LACTATED RINGERS 1,000 ML IV SCH (15:31)
[2022-10-05 15:35] LABS: INR 1.2 (<1.2); Partial Thromboplastin Time 26.6 sec (22.0-30.0); Prothrombin Time 11.9 sec (9.0-12.0)
[2022-10-05 15:38] LABS: ABG HCO3 23 mmol/L (21-25); ABG PCO2 44 mmHg (35-45); ABG PH 7.33 (7.35-7.45); ABG PO2 >400 mmHg (83-108); ABG TCO2 24 mmol/L (19-24); Allen Test Performed? Yes
[2022-10-05 15:45] LABS: Ionized Calcium 4.8 mg/dL (4.5-5.3)
--- NOTE | 2022-10-05 15:50 | P.OP ---
Date of Procedure: 10/05/22 Preoperative Diagnosis: Coronary artery disease, mitral regurgitation Postoperative Diagnosis: Same Procedure(s) Performed: CABG 2 with MIGUEL to LAD, left radial artery to diagonal, mitral valve repair with artificial cords to P2 2 and annuloplasty with a 30 mm AnnuloFlex band. Ligation of the left atrial appendage with a 2 layer running closure of 3-0 Prolene. Endovascular harvest of the left radial artery. LASHAE by anesthesia. Implants: 30 mm AnnuloFlex band Surgeon: Isidoro Alvarado Copywriter #1: Nikita Humphrey Estimated Blood Loss (ml): 500 IV fluids (ml): 2,000 Urine output (ml): 800 Pathology: other (Chordae from posterior leaflet mitral valve) Condition: stable Disposition: ICU Indications for Procedure: 72-year-old male with severe mitral regurgitation and proximal LAD diagonal disease. LASHAE demonstrated mitral valve prolapse with flail P2 segment. Severe mitral regurgitation was noted. Function was well-preserved. Operative Findings: There were multiple ruptured cords from P2 extending the entire width of P2. Harrison cords on P1 and P3 were intact but thin. The MIGUEL was a good conduit but relatively small. The left radial artery was an excellent conduit. LAD was a large vessel with a tight proximal stenosis. Diagonal was a moderate-sized vessel with tight proximal stenosis. Obtuse marginal was a small vessel. Was no significant right coronary artery disease in his right coronary artery was dominant. Completion echocardiography demonstrated no evidence of mitral regurgitation with excellent mitral valve repair. Left ventricular function was normal. Patient did not require any inotropic support. Description of Procedure: Patient was brought to the operating room placed supine on the operating table. General anesthesia was induced. The anterior torso and bilateral lower extremities and left upper extremity were sterilely prepped and draped. Midline sternotomy was performed. Left hemisternum was retracted upwards and the left internal mammary artery harvested on the vascular pedicle left intact and surgeon from subclavian and divided distally. Was relatively small condylomata was decided to harvest the left radial artery. Left radial arterial harvest was performed using endovascular technique. Radial artery was prepared on the back table. On completion the radial artery harvest, the incision was closed and the arm was wrapped and tucked at the side. Left pleural space was drained with 32- Cymro chest tube. Standard sternal retractor was placed and pericardium was opened in the midline. The heart was exposed with pericardial sutures. Patient was heparinized and cannulated for carpal mid bypass with 7 mm soft AND cannula in the distal ascending aorta a 36 straight venous cannula through the right atrial appendage into the inferior vena cava and a 30 right angle cannula in the superior vena cava. Antegrade and retrograde cardioplegia lines were placed in standard fashion. Patient was placed on cardiopulmonary bypass and stabilized. Targets were identified as noted above. Aorta was crossclamped and the heart arrested with cold crystalloid antegrade cardioplegia followed by retrograde cardioplegia. Additional doses of retrograde cardioplegia were given at appropriate time intervals. Coronary arteries were again explored and it was decided to only graft to LAD and diagonal. The diagonal was stabilized and opened. It easily accepted a 1.5 mm probe distally and proximally to tight ostial stenosis. End-to-side anastomosis of the left radial artery to the diagonal coronary artery was performed with running 7-0 Prolene suture. Completion anastomosis was probed and noted to be patent. Suture was tied with good resultant hemostasis on infusion of cold blood cardioplegia. Next the LAD was opened in its midportion. It was a 2 mm vessel. It accepted a 2 mm probe proximally to about the proximal third were ran into an obstruction. It accepted a 2 mm probe distally to the apex. MIGUEL to the LAD anastomosis was performed with running 8-0 Prolene suture. Completion anastomosis was probed and noted to be patent. The suture was tied and inflow open briefly good hemostasis noted. The ZEENAT pedicle was tacked surrounding epicardium with 6-0 silk. The interatrial groove was now developed with sharp dissection. The left atrium was entered through the interatrial groove. The mitral valve was exposed with the Manolo retractor. Left atrial appendage was oversewn with a 2 layer running closure of Christianne Prolene suture from within the atrium. The valve was tested with findings as noted above. Was decided to place 2 sets of artificial cords to the posterior leaflet. The first set of cords was placed to the posterior medial papillary muscle and the cords run up to the P3 side of P2. Cords were brought to appropriate length and the suture tied. The valve was tested and there was good coaptation. We now port formed a second set of artificial cords to the anterior lateral papillary muscle up to the P1 side of P2. Again the cords were made of appropriate length and tied and valve was tested and again good coaptation was noted with no evidence of regurgitation. Annuloplasty sutures were placed around the posterior portion of the mitral annulus extending from trigone to trigone. The anterior leaflet was sized and a 30 mm AnnuloFlex band was chosen. Annuloplasty sutures were placed through the band and the band was seated and the sutures tied and cut. The valve was again taught tested and noted to be competent. The left atrium was closed with a single layer running closure of 3-0 Prolene suture. Left radial artery was cut to appropriate length and proximal anastomosis constructed to a 4 mm punch hole in the mid ascending aorta to the left of midline. This was performed with running 6-0 Prolene suture. On completion of the anastomosis it was de-aired by backbleeding by opening the MIGUEL to the LAD. The patient was placed in Trendelenburg and the cross-clamp was removed. Aorta was vented through the aortic vent. Retrograde cardioplegia line was removed. Atrial and ventricular pacing wires were placed and the patient was paced. The inferior vena caval cannula was pulled back into the right atrium and the superior vena caval cannula was removed and the pursestring suture tied with good resultant hemostasis. Lung function was initiated the ventilator and left ventricle was de-aired under LASHAE guidance through the apex with a 18-gauge Angiocath. The site was oversewn with a 6-0 Prolene suture on complete de-airing. Aortic vent was then removed and the site reinforced with a 4-0 pledgeted Prolene suture. Patient was weaned from cardiopulmonary bypass without the use of inotropic support and easily. LASHAE demonstrated excellent valve function with no evidence of leak from the mitral valve. Left ventricular function was excellent. No inotropic support was used. Patient was then decannulated in standard fashion. An was reversed with protamine. Atrial cannulation site was reinforced with a heavy silk tie and the aortic cannulation site was reinforced with a 4-0 pledgeted Prolene. Once good hemostasis of been confirmed throughout, chest was irrigated with antibiotic solution. Left pleural space was drained with a 36-Cymro chest tube. Mediastinum was drained with a 36 and a 32-Cymro chest tube. Chest tubes were secured with 0 Ethibond suture. Chest was again irrigated and again hemostasis was verified. Chest was closed with sternal wires and the fascia closed with 0 Ethibond. The cutaneous and subcuticular layers were closed with layers of Vicryl suture. Dry sterile dressings were applied and the patient was transferred in stable condition to the ICU.
[2022-10-05 15:56] LABS: Basophils % (A) 0 %; Eosinophils % (A) 0 %; HCT 29.2 % (39.0-53.0); HGB 10.3 gm/dL (13.0-17.5); Hyperchromasia Slight; Lymphocytes # (A) 0.4 k/uL (1.0-4.8); Lymphocytes % (A) 4 %; MCH 30.7 pg (25.0-35.0); MCHC 35.1 g/dL (31.0-37.0); MCV 87.5 fL (80.0-100.0); Mean Platelet Volume 7.4; Monocytes # (A) 0.5 k/uL (0-1.0); Monocytes % (A) 6 %; Neutrophils # (A) 8.2 k/uL (1.3-7.7); Neutrophils % (A) 90 %; Poikilocytosis Slight; RBC 3.34 m/uL (4.30-5.90); RDW 15.5 % (11.5-15.5); WBC 9.2 k/uL (3.8-10.6)
[2022-10-05] MEDS ORDERED: IPRATROPIUM-ALBUTEROL 3 ML NEB INHALATION SCH (16:00)
[2022-10-05] MEDS: HEPARIN SODIUM,PORCINE/PF 5,000 UNIT/0.5 ML SYRINGE SQ SCH ×2 (16:00→23:01)
[2022-10-05 16:02] LABS: Glucose,Whole Blood 136 mg/dL (70-110)
[2022-10-05] MEDS: HYDROCORTISONE SUCCINATE 100 MG/2 ML VIAL IV SCH ×2 (16:16→23:24)
[2022-10-05] MEDS: ALBUMIN HUMAN 5% 250 ML in EMPTY BAG 1 BAG IVPB PRN ×4 (16:17→21:09)
[2022-10-05 16:18] LABS: Basophils % (A) 0 %; Eosinophils % (A) 0 %; HCT 32.4 % (39.0-53.0); HGB 11.5 gm/dL (13.0-17.5); Lymphocytes # (A) 0.6 k/uL (1.0-4.8); Lymphocytes % (A) 4 %; MCHC 35.5 g/dL (31.0-37.0); Mean Platelet Volume 7.3; Monocytes # (A) 0.9 k/uL (0-1.0); Monocytes % (A) 7 %; Neutrophils # (A) 11.6 k/uL (1.3-7.7); Neutrophils % (A) 88 %; Platelet Count 108 k/uL (150-450); Poikilocytosis Slight; RDW 15.1 % (11.5-15.5); WBC 13.1 k/uL (3.8-10.6)
[2022-10-05 16:28] LABS: INR 1.1 (<1.2); Partial Thromboplastin Time 27.4 sec (22.0-30.0); Prothrombin Time 11.4 sec (9.0-12.0)
[2022-10-05 16:29] LABS: Ionized Calcium 4.8 mg/dL (4.5-5.3)
[2022-10-05 16:37] LABS: ALT 16 U/L (4-49); AST 54 U/L (17-59); African American GFR (CKD) 59 (>60 ml/min/1.73 sqM); Albumin 2.8 g/dL (3.5-5.0); Alkaline Phosphatase 34 U/L (38-126); Anion Gap 6 mmol/L; Blood Urea Nitrogen 22 mg/dL (9-20); Calcium 7.7 mg/dL (8.4-10.2); Carbon Dioxide 22 mmol/L (22-30); Chloride 109 mmol/L (98-107); Glucose 115 mg/dL (74-99); Magnesium 2.9 mg/dL (1.6-2.3); Non-African American GFR(CKD) 51 (>60 ml/min/1.73 sqM); Potassium 4.8 mmol/L (3.5-5.1); Sodium 137 mmol/L (137-145); Total Bilirubin 1.2 mg/dL (0.2-1.3); Total Protein 4.3 g/dL (6.3-8.2)
[2022-10-05 16:39] LABS: ALT 18 U/L (4-49); AST 57 U/L (17-59); African American GFR (CKD) 54 (>60 ml/min/1.73 sqM); Albumin 3.2 g/dL (3.5-5.0); Alkaline Phosphatase 38 U/L (38-126); Anion Gap 6 mmol/L; Blood Urea Nitrogen 21 mg/dL (9-20); Calcium 7.9 mg/dL (8.4-10.2); Carbon Dioxide 24 mmol/L (22-30); Chloride 107 mmol/L (98-107); Glucose 130 mg/dL (74-99); Magnesium 2.9 mg/dL (1.6-2.3); Non-African American GFR(CKD) 46 (>60 ml/min/1.73 sqM); Potassium 5.7 mmol/L (3.5-5.1); Sodium 137 mmol/L (137-145); Total Bilirubin 1.5 mg/dL (0.2-1.3); Total Protein 4.8 g/dL (6.3-8.2)
--- NOTE | 2022-10-05 16:54 | P.CNPUL ---
History of Present Illness Consult date: 10/05/22 Chief complaint: Postthoracotomy History of present illness: 72-year-old male patient underwent two-vessel bypass surgery and mitral valve repair. The patient was having exertional dyspnea and fatigue. He was referred to cardiology and further investigation revealed that the patient had significant mitral regurgitation. He underwent a cardiac catheterization and LASHAE. Cardiac catheterization showed proximal LAD stenosis in the order of 90%, and was also involving the first diagonal branch. There was also a normal circumflex and RCA. 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 Aortic valve was within normal limits. Based on that, the patient was taken to surgery. The patient underwent two-vessel bypass surgery using a radial and MIGUEL to LAD. The patient also had mitral valve repair. Currently is on assist- control mode of mechanical ventilation. His well sedated on propofol which is running at 10 mcg/kg/m. He is on a rate of 12, tidal volume of 550, FiO2 of 50% and a PEEP of 5. Chest x-ray showed adequate expansion of both lungs. The patient has no evidence of any pneumothorax. The patient has a left pleural and 2 mediastinal chest tubes. The patient is hemodynamically stable at this point in time. He is on a Cardizem drip at 5 mg an hour. He is also on a nitroglycerin drip. Output from the chest tubes have been in the order of less than 100 mL. No evidence of any air leak. The blood gas showed a pH of 7.33 with a pCO2 of 44 and pO2 more than 400. FiO2 was brought down to 50%. BUN is 21 with a creatinine 1.5 and a potassium level of 5.7. The [place] 15.4 with a hemoglobin of 11.5. Current cardiac output is 4.9 with an index of 2.3. PA pressures of 30/19. Review of Systems ROS unobtainable: due to endotracheal tube Past Medical History Past Medical History: Cancer, Hypertension, Thyroid Disorder Additional Past Medical History / Comment(s): addisons disease, low testosterone, family hx of MA, recent u/s showed leaky valve. hx of asthma as a child. enlarged spleen (Gurvinder). borderline kidney issues. paige Viveros. skin cancer, chronic steroid use for Person's History of Any Multi-Drug Resistant Organisms: None Reported Past Surgical History: Heart Catheterization, Hernia Repair, Joint Replacement, Orthopedic Surgery, Tonsillectomy Additional Past Surgical History / Comment(s): LEFT ANKLE FX WITHS SURGERY X3. inguinal hernia repair. rt knee replaced, colonoscopy Past Anesthesia/Blood Transfusion Reactions: No Reported Reaction Smoking Status: Never smoker - Past Family History Mother Family Medical History: No Reported History family Family Medical History: Coronary Artery Disease (CAD) Medications and Allergies Home Medications Medication Instructions Recorded Confirmed Type Cholecalciferol [Vitamin D3 (25 2,000 unit PO DAILY 05/31/17 10/05/22 History Mcg = 1000 Iu)] Fludrocortisone [Florinef] 0.1 mg PO DAILY 05/31/17 10/05/22 History Levothyroxine Sodium [Synthroid] 75 mcg PO DAILY 05/31/17 10/05/22 History Hydrocortisone [Cortef] 10 mg PO W/SUPPER #0 06/08/17 10/05/22 Rx Hydrocortisone [Cortef] 20 mg PO QAM #0 06/08/17 10/05/22 Rx Losartan Potassium [Cozaar] 25 mg PO DAILY 09/19/22 10/05/22 History Unk Biote Testosterone Pellet 1 applic SQ Q150D 09/19/22 10/05/22 History Unk Saw Proctor 1,740 mg PO DAILY 09/19/22 10/05/22 History Allergies Allergy/AdvReac Type Severity Reaction Status Date / Time Penicillins AdvReac Unknown Unknown Verified 10/05/22 05:54 aspirin AdvReac INSTRUCTED Verified 10/05/22 05:54 NOT TO TAKE DUE TO ADDISONS. Physical Exam Vitals: Vital Signs Temp Pulse Pulse Resp BP BP Pulse Ox 10/05/22 16:15 79 12 100 10/05/22 16:00 98.8 F 79 12 100 10/05/22 15:48 80 10/05/22 15:45 80 12 100 10/05/22 15:42 10/05/22 15:30 80 12 100 10/05/22 15:15 88 12 100 10/05/22 15:00 97.7 F 89 12 100 10/05/22 14:58 10/05/22 06:00 97 F L 88 20 158/68 14/70 100 FiO2 06/23/23 16:15 100 10/05/22 16:00 100 10/05/22 15:48 10/05/22 15:45 10/05/22 15:42 50 10/05/22 15:30 100 10/05/22 15:15 100 10/05/22 15:00 100 10/05/22 14:58 100 10/05/22 06:00 Intake and Output 10/05/22 10/05/22 10/05/22 06:59 14:59 22:59 Intake Total 100 3 Output Total 1650 Balance 100 -1647 Intake: IV 100 3 Output: Urine 650 Estimated Blood Loss 1000 Other: Weight 87.1 kg ABP, PAP, CO, CI - Last 8 Hours Arterial Blood Pressure 85/44 Arterial Blood Pressure 103/54 Arterial Blood Pressure 107/54 Arterial Blood Pressure 103/56 Arterial Blood Pressure 119/66 Arterial Blood Pressure 101/53 Pulmonary Artery Pressure 26/14 Pulmonary Artery Pressure 28/15 Pulmonary Artery Pressure 28/16 Pulmonary Artery Pressure 27/15 Pulmonary Artery Pressure 30/18 Pulmonary Artery Pressure 23/12 Cardiac Output 4.3 Cardiac Output 4.3 Cardiac Output 4.9 Cardiac Output 4.9 Cardiac Output 4.9 Cardiac Output 4.9 Cardiac Index 2.1 Cardiac Index 2.1 Cardiac Index 2.3 Cardiac Index 2.3 Cardiac Index 2.3 Cardiac Index 2.3 Patient is currently intubated on a mechanical ventilator, adequately sedated for now Head exam was generally normal. There was no scleral icterus or corneal arcus. Mucous membranes were moist. Neck was supple and without jugular venous distension, thyromegaly, or carotid bruits. Carotids were easily palpable bilaterally. There was no adenopathy. The patient has a right IJ Cordis and [place]-Sadi catheter in place Lungs were clear to auscultation and percussion, and with normal diaphragmatic excursion. No wheezes or rales were noted. The thoracotomy scar is intact and the patient has no mediastinal or 1 pleural chest tube on the left. Epicardial leads are noted. Heart sounds are regular in the patient's cardiac rhythmat the rate of 80 Abdominal exam revealed normal bowel sounds. The abdomen was soft, non-tender, and without masses, organomegaly, or appreciable enlargement of the abdominal aorta. Examination of the extremities revealed easily palpable radial, femoral and pedal pulses. There was no cyanosis, clubbing or edema. Surgical once is overall dry clean and intact Neurologically, the patient is currently sedated and, comfortable. Results - Laboratory Findings CBC and BMP: 10/05/22 15:59 10/05/22 15:59 ABG ABG pH 7.33 (7.35-7.45) L 10/05/22 15:36 ABG pCO2 44 mmHg (35-45) 10/05/22 15:36 ABG pO2 >400 mmHg (83-108) H 10/05/22 15:36 ABG O2 Saturation 100.0 % (94-97) H 10/05/22 15:36 PT/INR, D-dimer PT 11.4 sec (9.0-12.0) 10/05/22 15:59 INR 1.1 (<1.2) 10/05/22 15:59 Abnormal lab findings: Abnormal Labs 10/02/22 10/02/22 10/05/22 09:23 09:23 08:00 WBC RBC Hgb Hct RDW 15.4 H Plt Count MPV 9.2 L Neutrophils # Lymphocytes # INR ABG pH ABG pO2 326 H ABG Total CO2 26 H ABG O2 Saturation 99.7 H Hemoglobin 12.7 L Potassium Chloride BUN Creatinine Glucose POC Glucose (mg/dL) Calcium Magnesium Total Bilirubin Alkaline Phosphatase Total Protein Albumin Crossmatch See Detail 10/05/22 10/05/22 10/05/22 11:00 11:00 11:00 WBC RBC 3.34 L Hgb 10.3 L Hct 29.2 L RDW Plt Count MPV Neutrophils # Lymphocytes # INR 1.2 H ABG pH ABG pO2 ABG Total CO2 ABG O2 Saturation Hemoglobin Potassium Chloride 109 H BUN 22 H Creatinine 1.38 H Glucose 115 H POC Glucose (mg/dL) Calcium 7.7 L Magnesium 2.9 H Total Bilirubin Alkaline Phosphatase 34 L Total Protein 4.3 L Albumin 2.8 L Crossmatch 10/05/22 10/05/22 10/05/22 14:11 15:36 15:59 WBC 13.1 H RBC 3.60 L Hgb 11.5 L Hct 32.4 L RDW Plt Count 108 L MPV Neutrophils # 11.6 H Lymphocytes # 0.6 L INR ABG pH 7.33 L ABG pO2 >400 H ABG Total CO2 ABG O2 Saturation 100.0 H Hemoglobin Potassium Chloride BUN Creatinine Glucose POC Glucose (mg/dL) 124 H Calcium Magnesium Total Bilirubin Alkaline Phosphatase Total Protein Albumin Crossmatch 10/05/22 10/05/22 15:59 16:01 WBC RBC Hgb Hct RDW Plt Count MPV Neutrophils # Lymphocytes # INR ABG pH ABG pO2 ABG Total CO2 ABG O2 Saturation Hemoglobin Potassium 5.7 H Chloride BUN 21 H Creatinine 1.50 H Glucose 130 H POC Glucose (mg/dL) 136 H Calcium 7.9 L Magnesium 2.9 H Total Bilirubin 1.5 H Alkaline Phosphatase Total Protein 4.8 L Albumin 3.2 L Crossmatch - Diagnostic Findings Chest x-ray: image reviewed Assessment and Plan Plan: CABG 2 with MIGUEL to LAD, left radial artery to diagonal, mitral valve repair with artificial cords to P2 2 and annuloplasty with a 30 mm AnnuloFlex band. The patient is currently postop day #0. The surgery was done for coronary artery disease and severe mitral regurgitation with a rupture of P2 chordae. The patient is hemodynamically stable. The patient is on no pressors. Adequate cardiac output and index. Postthoracotomy, currently intubated on a mechanical ventilator. The patient has to mediastinal and one pleural chest tube. Chest x-ray was noted. Blood gas was noted History of Person's disease Maintain a hydrocortisone outpatient basis Hypothyroidism Hypertension Osteoarthritis Hyperkalemia Chronic stage III kidney disease Plan Continue ventilator support and FiO2 has been weaned down to 50% Keep sedation and utilize Precedex over propofol Hemodynamically stable Continue nitroglycerin drip Continue Cardizem drip Monitor output from the chest tubes Chest x-ray was noted Anticipate extubation within the next 3-6 hours Stress dose hydrocortisone Treat the hyperkalemia with a total of 100 mEq of sodium bicarbonate and D50 insulin and monitor the potassium level Cardiac rhythm is paced, DDD 80 and underlying rhythm is sinus bradycardia. Insulin drip at 1 unit an hour Monitor blood sugar control We'll continue to follow
[2022-10-05 17:11] LABS: Platelet Count 87 k/uL (150-450)
[2022-10-05] MEDS ORDERED: DEXTROSE 50% SYRINGE 50 ML IVP ONE (17:13)
[2022-10-05] MEDS ORDERED: INSULIN REGULAR 100 UNIT/ML VIAL (IV) IV ONE (17:13)
[2022-10-05] MEDS ORDERED: SODIUM BICARB 8.4% 50 ML SYR (1 MEQ/ML) IV ONE (17:13)
[2022-10-05 17:22] LABS: Glucose,Whole Blood 135 mg/dL (70-110)
[2022-10-05 18:24] LABS: Glucose,Whole Blood 212 mg/dL (70-110)
[2022-10-05 18:24] LABS: ABG Base Excess 2.3 mmol/L; ABG HCO3 27 mmol/L (21-25); ABG Oxygen Saturation 99.6 % (94-97); ABG PCO2 42 mmHg (35-45); ABG PH 7.42 (7.35-7.45); ABG PO2 148 mmHg (83-108); ABG TCO2 28 mmol/L (19-24); Allen Test Performed? Yes
[2022-10-05 18:47] LABS: Basophils % (A) 0 %; Eosinophils % (A) 0 %; Lymphocytes # (A) 0.3 k/uL (1.0-4.8); Lymphocytes % (A) 2 %; MCH 32.3 pg (25.0-35.0); MCHC 35.9 g/dL (31.0-37.0); MCV 89.9 fL (80.0-100.0); Mean Platelet Volume 7.7; Monocytes # (A) 0.5 k/uL (0-1.0); Monocytes % (A) 5 %; Neutrophils # (A) 9.7 k/uL (1.3-7.7); Neutrophils % (A) 92 %; Poikilocytosis Slight; RBC 2.89 m/uL (4.30-5.90); RDW 15.2 % (11.5-15.5); WBC 10.5 k/uL (3.8-10.6)
[2022-10-05 18:56] LABS: HGB 9.3 gm/dL (13.0-17.5)
[2022-10-05 18:57] LABS: Platelet Count 80 k/uL (150-450)
[2022-10-05 19:08] LABS: Glucose,Whole Blood 185 mg/dL (70-110)
[2022-10-05] MEDS: ACETAMINOPHEN IV (For NPO) 1,000 MG in EMPTY BAG 1 BAG IVPB SCH ×2 (19:28→23:04)
[2022-10-05 20:15] LABS: Glucose,Whole Blood 170 mg/dL (70-110)
[2022-10-05] MEDS: IPRATROPIUM-ALBUTEROL 3 ML NEB INHALATION SCH (20:16)
[2022-10-05 20:36] LABS: Basophils % (A) 0 %; Eosinophils % (A) 0 %; HGB 9.2 gm/dL (13.0-17.5); Hyperchromasia Slight; Lymphocytes # (A) 0.2 k/uL (1.0-4.8); Lymphocytes % (A) 3 %; MCH 30.9 pg (25.0-35.0); MCHC 35.2 g/dL (31.0-37.0); MCV 87.8 fL (80.0-100.0); Mean Platelet Volume 8.1; Monocytes # (A) 0.2 k/uL (0-1.0); Monocytes % (A) 3 %; Neutrophils # (A) 8.4 k/uL (1.3-7.7); Neutrophils % (A) 94 %; Platelet Count 85 k/uL (150-450); Poikilocytosis Slight; RBC 2.96 m/uL (4.30-5.90); RDW 15.7 % (11.5-15.5); WBC 8.9 k/uL (3.8-10.6)
[2022-10-05 20:58] LABS: Glucose,Whole Blood 148 mg/dL (70-110)
[2022-10-05 22:14] LABS: Glucose,Whole Blood 134 mg/dL (70-110)
[2022-10-05 22:57] LABS: Glucose,Whole Blood 135 mg/dL (70-110)
[2022-10-05] MEDS: ONDANSETRON 4 MG/2 ML VIAL IVP PRN (23:49)
[2022-10-06 00:08] LABS: Glucose,Whole Blood 140 mg/dL (70-110)
[2022-10-06 01:02] LABS: Glucose,Whole Blood 139 mg/dL (70-110)
[2022-10-06] MEDS: DILTIAZEM 125 MG in SODIUM CHLORIDE 0.9% 100 ML IV SCH (01:04)
[2022-10-06 01:57] LABS: Glucose,Whole Blood 142 mg/dL (70-110)
[2022-10-06 02:53] LABS: Glucose,Whole Blood 135 mg/dL (70-110)
[2022-10-06 04:06] LABS: Glucose,Whole Blood 138 mg/dL (70-110)
[2022-10-06 04:14] LABS: Basophils % (A) 0 %; Eosinophils # (A) 0.1 k/uL (0-0.7); Eosinophils % (A) 1 %; HCT 25.9 % (39.0-53.0); HGB 9.1 gm/dL (13.0-17.5); Lymphocytes # (A) 0.4 k/uL (1.0-4.8); Lymphocytes % (A) 4 %; MCHC 35.2 g/dL (31.0-37.0); Mean Platelet Volume 7.5; Monocytes # (A) 0.5 k/uL (0-1.0); Monocytes % (A) 5 %; Neutrophils # (A) 8.5 k/uL (1.3-7.7); Neutrophils % (A) 90 %; Poikilocytosis Slight; RBC 2.85 m/uL (4.30-5.90); RDW 15.4 % (11.5-15.5); WBC 9.4 k/uL (3.8-10.6)
[2022-10-06 04:22] LABS: Platelet Count 95 k/uL (150-450)
[2022-10-06 04:28] LABS: Ionized Calcium 4.6 mg/dL (4.5-5.3)
[2022-10-06] MEDS: HYDROcodone/APAP 10-325MG 1 EACH TAB PO PRN ×3 (04:28→15:09)
[2022-10-06 04:37] LABS: ALT 16 U/L (4-49); AST 63 U/L (17-59); African American GFR (CKD) 52 (>60 ml/min/1.73 sqM); Albumin 3.4 g/dL (3.5-5.0); Alkaline Phosphatase 27 U/L (38-126); Anion Gap 7 mmol/L; Blood Urea Nitrogen 27 mg/dL (9-20); Calcium 7.6 mg/dL (8.4-10.2); Carbon Dioxide 25 mmol/L (22-30); Chloride 105 mmol/L (98-107); Glucose 129 mg/dL (74-99); Magnesium 2.8 mg/dL (1.6-2.3); Non-African American GFR(CKD) 45 (>60 ml/min/1.73 sqM); Potassium 4.6 mmol/L (3.5-5.1); Sodium 137 mmol/L (137-145); Total Bilirubin 0.6 mg/dL (0.2-1.3)
[2022-10-06 05:10] LABS: Glucose,Whole Blood 135 mg/dL (70-110)
[2022-10-06] MEDS: METOCLOPRAMIDE 5 MG/ML 2 ML VIAL IVP PRN (05:47)
[2022-10-06 06:11] LABS: Glucose,Whole Blood 118 mg/dL (70-110)
[2022-10-06] MEDS: LEVOTHYROXINE 75 MCG TAB PO SCH (06:19)
[2022-10-06] MEDS: ALBUMIN HUMAN 5% 250 ML in EMPTY BAG 1 BAG IVPB PRN (06:42)
[2022-10-06 07:10] LABS: Glucose,Whole Blood 133 mg/dL (70-110)
--- NOTE | 2022-10-06 07:26 | XR ---
EXAMINATION TYPE: XR chest 1V portable DATE OF EXAM: 10/06/2022 HISTORY: Post Operative Cardiac Surgery COMPARISON: 10/05/2022 TECHNIQUE: Single view of the chest is submitted. FINDINGS: Endotracheal and NG tubes have been removed. [place]-Sadi catheter remains in place as well as left-side d chest tube and mediastinal drains. Scattered pleural-parenchymal density left midlung zone. No evidence for pneumothorax. The heart is stable. Hilar and mediastinal structures are within normal limits. Degenerative changes are seen of the dorsal spine. IMPRESSION: 1. Scattered pleural-parenchymal density left midlung zone. No evidence for pneumothorax.
[2022-10-06] MEDS ORDERED: IPRATROPIUM-ALBUTEROL 3 ML NEB INHALATION SCH (08:00)
[2022-10-06] MEDS: HEPARIN SODIUM,PORCINE/PF 5,000 UNIT/0.5 ML SYRINGE SQ SCH ×3 (08:01→23:06)
[2022-10-06 08:15] LABS: Glucose,Whole Blood 123 mg/dL (70-110)
[2022-10-06] MEDS: HYDROCORTISONE SUCCINATE 100 MG/2 ML VIAL IV SCH (08:16)
[2022-10-06] MEDS: ONDANSETRON 4 MG/2 ML VIAL IVP PRN (08:16)
[2022-10-06] MEDS: ATORVASTATIN 40 MG TAB PO SCH (08:23)
[2022-10-06] MEDS: CHOLECALCIFEROL 25 MCG (1000 IU) TABLET PO SCH (08:23)
[2022-10-06] MEDS: FLUDROCORTISONE 0.1 MG TAB PO SCH (08:23)
[2022-10-06] MEDS: CLOPIDOGREL 75 MG TAB PO SCH (08:23)
--- NOTE | 2022-10-06 08:33 | P.CONS ---
History of Present Illness - History of Present Illness This is a pleasant 72 years old male with past medical history of Hypertension, hypothyroidism, [place] disease Patient with a known coronary artery disease underwent 2 vessel bypass surgery and mitral valve repair Patient currently resting comfortably with no complaint Patient chest pain and dyspnea CONTROLLED Hemodynamically stable None showing mild anemia with hemoglobin 9.1 which is expected Platelet count is 87-95. INR is 1.1 Creatinine 1.5 which is baseline 1.4-1.7 Chest x-ray: No acute process. Check hemoglobin A1c on 10/02/2022 was 4.9 Patient tolerated lying comfortable in the chair, chest tube in place. Review of Systems Review of systems CONSTITUTIONAL: No fever, no malaise, no fatigue. HEENT: No recent visual problems or hearing problems. Denied any sore throat. CARDIOVASCULAR: No orthopnea, PND, no palpitations, no syncope. PULMONARY: No shortness of breath, no cough, no hemoptysis. GASTROINTESTINAL: No diarrhea, no nausea, no vomiting, no abdominal pain. Normoactive bowel sounds. NEUROLOGICAL: No headaches, no weakness, no numbness. HEMATOLOGICAL: Denies any bleeding or petechiae. GENITOURINARY: Denies any burning micturition, frequency, or urgency. MUSCULOSKELETAL/RHEUMATOLOGICAL: Denies any joint pain, swelling, or any muscle pain. ENDOCRINE: Denies any polyuria or polydipsia. Past Medical History Past Medical History: Cancer, Hypertension, Thyroid Disorder Additional Past Medical History / Comment(s): addisons disease, low testosterone, family hx of HI, recent u/s showed leaky valve. hx of asthma as a child. enlarged spleen (Gurvinder). borderline kidney issues. seehaider Flores, hx. skin cancer, chronic steroid use for [place]'s History of Any Multi-Drug Resistant Organisms: None Reported Past Surgical History: Heart Catheterization, Hernia Repair, Joint Replacement, Orthopedic Surgery, Tonsillectomy Additional Past Surgical History / Comment(s): LEFT ANKLE FX WITHS SURGERY X3. inguinal hernia repair. rt knee replaced, colonoscopy Past Anesthesia/Blood Transfusion Reactions: No Reported Reaction Smoking Status: Never smoker - Past Family History Mother Family Medical History: No Reported History family Family Medical History: Coronary Artery Disease (CAD) Medications and Allergies Home Medications Medication Instructions Recorded Confirmed Type Cholecalciferol [Vitamin D3 (25 2,000 unit PO DAILY 05/31/17 10/05/22 History Mcg = 1000 Iu)] Fludrocortisone [Florinef] 0.1 mg PO DAILY 05/31/17 10/05/22 History Levothyroxine Sodium [Synthroid] 75 mcg PO DAILY 05/31/17 10/05/22 History Hydrocortisone [Cortef] 10 mg PO W/SUPPER #0 06/08/17 10/05/22 Rx Hydrocortisone [Cortef] 20 mg PO QAM #0 06/08/17 10/05/22 Rx Losartan Potassium [Cozaar] 25 mg PO DAILY 09/19/22 10/05/22 History Unk Biote Testosterone Pellet 1 applic SQ Q150D 09/19/22 10/05/22 History Unk Saw [place] 1,740 mg PO DAILY 09/19/22 10/05/22 History Allergies Allergy/AdvReac Type Severity Reaction Status Date / Time Penicillins AdvReac Unknown Unknown Verified 10/05/22 05:54 aspirin AdvReac INSTRUCTED Verified 10/05/22 05:54 NOT TO TAKE DUE TO ADDISONS. Physical Exam Vitals: Vital Signs Temp Pulse Resp BP Pulse Ox FiO2 10/06/22 06:00 80 18 99 10/06/22 05:30 80 24 104/60 100 10/06/22 05:00 80 18 103/63 100 10/06/22 04:30 80 13 99/61 100 10/06/22 04:00 98.6 F 80 18 99/61 100 10/06/22 03:30 80 20 93/56 100 10/06/22 03:00 80 17 93/57 99 10/06/22 02:30 79 15 92/58 99 10/06/22 02:00 80 16 92/56 99 10/06/22 01:30 80 13 90/58 98 10/06/22 01:00 80 17 91/57 100 10/06/22 00:30 80 20 93/60 98 10/06/22 00:00 98.6 F 80 18 93/57 99 10/05/22 23:30 80 22 94/57 100 10/05/22 23:00 80 18 94/57 99 10/05/22 22:32 80 15 82/50 99 10/05/22 22:00 80 13 86/55 99 10/05/22 21:33 80 16 86/55 100 10/05/22 21:00 80 14 93/57 99 10/05/22 20:30 80 13 87/57 100 10/05/22 20:29 80 10/05/22 20:16 80 10/05/22 20:00 99.1 F 80 18 95/56 100 10/05/22 19:30 80 16 95/56 100 10/05/22 19:00 80 17 100 10/05/22 18:30 80 16 100 50 10/05/22 18:00 99.1 F 80 24 100 50 10/05/22 17:50 50 10/05/22 17:30 80 100 50 10/05/22 17:00 99.7 F H 80 38 H 100 50 10/05/22 16:30 80 14 100 50 10/05/22 16:15 79 12 100 100 10/05/22 16:00 98.8 F 79 12 100 100 10/05/22 15:48 80 10/05/22 15:45 80 12 100 100 10/05/22 15:42 50 10/05/22 15:30 80 12 100 100 10/05/22 15:15 88 12 100 100 10/05/22 15:00 97.7 F 89 12 100 100 10/05/22 14:58 100 Intake and Output 10/05/22 10/05/22 10/06/22 14:59 22:59 06:59 Intake Total 3 1393.516 773.064 Output Total 1650 1394 576 Balance -1647 -0.484 197.064 Intake: IV 3 362 712 0.9 PRESSURE BAG 72 72 ACETAMINOPHEN IV (For NPO 100 ) 1,000 mg In Empty Bag 1 bag @ 400 mls/hr IVPB Q6HR [facility] Rx#:[id number] CO/CI 140 90 Lactated Ringers 1,000 ml 150 400 @ 50 mls/hr IV .Q20H [facility] Rx#:[id number] ceFAZolin 2 gm In Sodium 50 Chloride 0.9% 50 ml @ 100 mls/hr IVPB Q8HR [facility] Rx# :[id number] Intake, IV Titration 1031.516 61.064 Amount Albumin Human 5% 250 ml 750 In Empty Bag 1 bag @ 250 mls/hr IVPB Q1HR PRN Rx#: [id number] Dexmedetomidine/0.9% NaCl 3.266 (Pmx) 400 mcg In Empty Bag 1 bag @ Titrate IV . Q0M [facility] Rx#:[id number] Diltiazem 125 mg In 50.333 Sodium Chloride 0.9% 100 ml @ 5 MG/HR 5 mls/hr IV .Q24H [facility] Rx#:[id number] Insulin Regular 100 unit 13.181 10.731 In Sodium Chloride 0.9% 100 ml @ Per Protocol IV .Q0M [facility] Rx#:[id number] Lactated Ringers 1,000 ml 250 @ 50 mls/hr IV .Q20H [facility] Rx#:[id number] propofoL 1,000 mg In 15.069 Empty Bag 1 bag @ Titrate IV .Q0M [facility] Rx#: [id number] Output: Chest Tube Drainage 464 316 Chest Tube Mediastinal 350 200 Pleural Catheter Left 114 116 Drainage 20 Left Wrist 20 Urine 650 910 260 Estimated Blood Loss 1000 Other: Voiding Method Indwelling Catheter Indwelling Catheter Weight 83 kg ABP, PAP, CO, CI - Last 8 Hours Arterial Blood Pressure 103/51 Arterial Blood Pressure 121/60 Arterial Blood Pressure 104/53 Arterial Blood Pressure 104/48 Arterial Blood Pressure 112/50 Arterial Blood Pressure 115/57 Arterial Blood Pressure 99/44 Arterial Blood Pressure 103/47 Arterial Blood Pressure 102/45 Arterial Blood Pressure 92/42 Arterial Blood Pressure 96/42 Arterial Blood Pressure 101/43 Arterial Blood Pressure 100/46 Arterial Blood Pressure 90/40 Arterial Blood Pressure 95/43 Pulmonary Artery Pressure 32/12 Pulmonary Artery Pressure 35/24 Pulmonary Artery Pressure 27/14 Pulmonary Artery Pressure 24/13 Pulmonary Artery Pressure 26/14 Pulmonary Artery Pressure 26/15 Pulmonary Artery Pressure 23/13 Pulmonary Artery Pressure 23/11 Pulmonary Artery Pressure 24/12 Pulmonary Artery Pressure 24/11 Pulmonary Artery Pressure 23/14 Pulmonary Artery Pressure 23/12 Pulmonary Artery Pressure 26/15 Pulmonary Artery Pressure 25/12 Pulmonary Artery Pressure 24/14 Cardiac Output 5.5 Cardiac Output 5.5 Cardiac Output 5.5 Cardiac Output 5.5 Cardiac Output 5.5 Cardiac Output 4.2 Cardiac Output 4.2 Cardiac Output 4.2 Cardiac Index 2.6 Cardiac Index 2.6 Cardiac Index 2.6 Cardiac Index 2.6 Cardiac Index 2.6 Cardiac Index 2 Cardiac Index 2 Cardiac Index 2 GENERAL: The patient is alert and oriented x3, not in any acute distress. Well developed, well nourished. HEENT: Pupils are round and equally reacting to light. EOMI. No scleral icterus. No conjunctival pallor. Normocephalic, atraumatic. No pharyngeal erythema. No thyromegaly. CARDIOVASCULAR: S1 and S2 present. No murmurs, rubs, or gallops. PULMONARY: Chest is clear to auscultation, no wheezing , no crackles. ABDOMEN: Soft, nontender, nondistended, normoactive bowel sounds. No palpable organomegaly. MUSCULOSKELETAL: No joint swelling or deformity. EXTREMITIES: No cyanosis, clubbing, or pedal edema. NEUROLOGICAL: Gross neurological examination did not reveal any focal deficits. SKIN: No rashes. no petechiae. Results CBC & Chem 7: 10/06/22 04:06 10/06/22 04:06 Labs: Abnormal Lab Results - Last 24 Hours (Table) 10/02/22 10/05/22 10/05/22 Range/Units 09:23 08:00 11:00 WBC (3.8-10.6) k/uL RBC 3.34 L (4.30-5.90) m/uL Hgb 10.3 L (13.0-17.5) gm/dL Hct 29.2 L (39.0-53.0) % RDW (11.5-15.5) % Plt Count 87 L (150-450) k/uL Neutrophils # 8.2 H (1.3-7.7) k/uL Lymphocytes # 0.4 L (1.0-4.8) k/uL INR (<1.2) ABG pH (7.35-7.45) ABG pO2 326 H (83-108) mmHg ABG HCO3 (21-25) mmol/L ABG Total CO2 26 H (19-24) mmol/L ABG O2 Saturation 99.7 H (94-97) % Hemoglobin 12.7 L (13.0-17.5) gm/dL Potassium (3.5-5.1) mmol/L Chloride (98-107) mmol/L BUN (9-20) mg/dL Creatinine (0.66-1.25) mg/dL Glucose (74-99) mg/dL POC Glucose (mg/dL) (70-110) mg/dL Calcium (8.4-10.2) mg/dL Magnesium (1.6-2.3) mg/dL Total Bilirubin (0.2-1.3) mg/dL AST (17-59) U/L Alkaline Phosphatase (38-126) U/L Total Protein (6.3-8.2) g/dL Albumin (3.5-5.0) g/dL Crossmatch See Detail 10/05/22 10/05/22 10/05/22 Range/Units 11:00 11:00 14:11 WBC (3.8-10.6) k/uL RBC (4.30-5.90) m/uL Hgb (13.0-17.5) gm/dL Hct (39.0-53.0) % RDW (11.5-15.5) % Plt Count (150-450) k/uL Neutrophils # (1.3-7.7) k/uL Lymphocytes # (1.0-4.8) k/uL INR 1.2 H (<1.2) ABG pH (7.35-7.45) ABG pO2 (83-108) mmHg ABG HCO3 (21-25) mmol/L ABG Total CO2 (19-24) mmol/L ABG O2 Saturation (94-97) % Hemoglobin (13.0-17.5) gm/dL Potassium (3.5-5.1) mmol/L Chloride 109 H (98-107) mmol/L BUN 22 H (9-20) mg/dL Creatinine 1.38 H (0.66-1.25) mg/dL Glucose 115 H (74-99) mg/dL POC Glucose (mg/dL) 124 H (70-110) mg/dL Calcium 7.7 L (8.4-10.2) mg/dL Magnesium 2.9 H (1.6-2.3) mg/dL Total Bilirubin (0.2-1.3) mg/dL AST (17-59) U/L Alkaline Phosphatase 34 L (38-126) U/L Total Protein 4.3 L (6.3-8.2) g/dL Albumin 2.8 L (3.5-5.0) g/dL Crossmatch 10/05/22 10/05/22 10/05/22 Range/Units 15:36 15:59 15:59 WBC 13.1 H (3.8-10.6) k/uL RBC 3.60 L (4.30-5.90) m/uL Hgb 11.5 L (13.0-17.5) gm/dL Hct 32.4 L (39.0-53.0) % RDW (11.5-15.5) % Plt Count 108 L (150-450) k/uL Neutrophils # 11.6 H (1.3-7.7) k/uL Lymphocytes # 0.6 L (1.0-4.8) k/uL INR (<1.2) ABG pH 7.33 L (7.35-7.45) ABG pO2 >400 H (83-108) mmHg ABG HCO3 (21-25) mmol/L ABG Total CO2 (19-24) mmol/L ABG O2 Saturation 100.0 H (94-97) % Hemoglobin (13.0-17.5) gm/dL Potassium 5.7 H (3.5-5.1) mmol/L Chloride (98-107) mmol/L BUN 21 H (9-20) mg/dL Creatinine 1.50 H (0.66-1.25) mg/dL Glucose 130 H (74-99) mg/dL POC Glucose (mg/dL) (70-110) mg/dL Calcium 7.9 L (8.4-10.2) mg/dL Magnesium 2.9 H (1.6-2.3) mg/dL Total Bilirubin 1.5 H (0.2-1.3) mg/dL AST (17-59) U/L Alkaline Phosphatase (38-126) U/L Total Protein 4.8 L (6.3-8.2) g/dL Albumin 3.2 L (3.5-5.0) g/dL Crossmatch 10/05/22 10/05/22 10/05/22 Range/Units 16:01 17:19 18:22 WBC (3.8-10.6) k/uL RBC (4.30-5.90) m/uL Hgb (13.0-17.5) gm/dL Hct (39.0-53.0) % RDW (11.5-15.5) % Plt Count (150-450) k/uL Neutrophils # (1.3-7.7) k/uL Lymphocytes # (1.0-4.8) k/uL INR (<1.2) ABG pH (7.35-7.45) ABG pO2 148 H (83-108) mmHg ABG HCO3 27 H (21-25) mmol/L ABG Total CO2 28 H (19-24) mmol/L ABG O2 Saturation 99.6 H (94-97) % Hemoglobin (13.0-17.5) gm/dL Potassium (3.5-5.1) mmol/L Chloride (98-107) mmol/L BUN (9-20) mg/dL Creatinine (0.66-1.25) mg/dL Glucose (74-99) mg/dL POC Glucose (mg/dL) 136 H 135 H (70-110) mg/dL Calcium (8.4-10.2) mg/dL Magnesium (1.6-2.3) mg/dL Total Bilirubin (0.2-1.3) mg/dL AST (17-59) U/L Alkaline Phosphatase (38-126) U/L Total Protein (6.3-8.2) g/dL Albumin (3.5-5.0) g/dL Crossmatch 10/05/22 10/05/22 10/05/22 Range/Units 18:23 18:25 19:07 WBC (3.8-10.6) k/uL RBC 2.89 L (4.30-5.90) m/uL Hgb 9.3 L D (13.0-17.5) gm/dL Hct 26.0 L (39.0-53.0) % RDW (11.5-15.5) % Plt Count 80 L (150-450) k/uL Neutrophils # 9.7 H (1.3-7.7) k/uL Lymphocytes # 0.3 L (1.0-4.8) k/uL INR (<1.2) ABG pH (7.35-7.45) ABG pO2 (83-108) mmHg ABG HCO3 (21-25) mmol/L ABG Total CO2 (19-24) mmol/L ABG O2 Saturation (94-97) % Hemoglobin (13.0-17.5) gm/dL Potassium (3.5-5.1) mmol/L Chloride (98-107) mmol/L BUN (9-20) mg/dL Creatinine (0.66-1.25) mg/dL Glucose (74-99) mg/dL POC Glucose (mg/dL) 212 H 185 H (70-110) mg/dL Calcium (8.4-10.2) mg/dL Magnesium (1.6-2.3) mg/dL Total Bilirubin (0.2-1.3) mg/dL AST (17-59) U/L Alkaline Phosphatase (38-126) U/L Total Protein (6.3-8.2) g/dL Albumin (3.5-5.0) g/dL Crossmatch 10/05/22 10/05/22 10/05/22 Range/Units 20:04 20:13 20:57 WBC (3.8-10.6) k/uL RBC 2.96 L (4.30-5.90) m/uL Hgb 9.2 L (13.0-17.5) gm/dL Hct 26.0 L (39.0-53.0) % RDW 15.7 H (11.5-15.5) % Plt Count 85 L (150-450) k/uL Neutrophils # 8.4 H (1.3-7.7) k/uL Lymphocytes # 0.2 L (1.0-4.8) k/uL INR (<1.2) ABG pH (7.35-7.45) ABG pO2 (83-108) mmHg ABG HCO3 (21-25) mmol/L ABG Total CO2 (19-24) mmol/L ABG O2 Saturation (94-97) % Hemoglobin (13.0-17.5) gm/dL Potassium (3.5-5.1) mmol/L Chloride (98-107) mmol/L BUN (9-20) mg/dL Creatinine (0.66-1.25) mg/dL Glucose (74-99) mg/dL POC Glucose (mg/dL) 170 H 148 H (70-110) mg/dL Calcium (8.4-10.2) mg/dL Magnesium (1.6-2.3) mg/dL Total Bilirubin (0.2-1.3) mg/dL AST (17-59) U/L Alkaline Phosphatase (38-126) U/L Total Protein (6.3-8.2) g/dL Albumin (3.5-5.0) g/dL Crossmatch 10/05/22 10/05/22 10/06/22 Range/Units 22:01 22:56 00:06 WBC (3.8-10.6) k/uL RBC (4.30-5.90) m/uL Hgb (13.0-17.5) gm/dL Hct (39.0-53.0) % RDW (11.5-15.5) % Plt Count (150-450) k/uL Neutrophils # (1.3-7.7) k/uL Lymphocytes # (1.0-4.8) k/uL INR (<1.2) ABG pH (7.35-7.45) ABG pO2 (83-108) mmHg ABG HCO3 (21-25) mmol/L ABG Total CO2 (19-24) mmol/L ABG O2 Saturation (94-97) % Hemoglobin (13.0-17.5) gm/dL Potassium (3.5-5.1) mmol/L Chloride (98-107) mmol/L BUN (9-20) mg/dL Creatinine (0.66-1.25) mg/dL Glucose (74-99) mg/dL POC Glucose (mg/dL) 134 H 135 H 140 H (70-110) mg/dL Calcium (8.4-10.2) mg/dL Magnesium (1.6-2.3) mg/dL Total Bilirubin (0.2-1.3) mg/dL AST (17-59) U/L Alkaline Phosphatase (38-126) U/L Total Protein (6.3-8.2) g/dL Albumin (3.5-5.0) g/dL Crossmatch 10/06/22 10/06/22 10/06/22 Range/Units 01:00 01:56 02:52 WBC (3.8-10.6) k/uL RBC (4.30-5.90) m/uL Hgb (13.0-17.5) gm/dL Hct (39.0-53.0) % RDW (11.5-15.5) % Plt Count (150-450) k/uL Neutrophils # (1.3-7.7) k/uL Lymphocytes # (1.0-4.8) k/uL INR (<1.2) ABG pH (7.35-7.45) ABG pO2 (83-108) mmHg ABG HCO3 (21-25) mmol/L ABG Total CO2 (19-24) mmol/L ABG O2 Saturation (94-97) % Hemoglobin (13.0-17.5) gm/dL Potassium (3.5-5.1) mmol/L Chloride (98-107) mmol/L BUN (9-20) mg/dL Creatinine (0.66-1.25) mg/dL Glucose (74-99) mg/dL POC Glucose (mg/dL) 139 H 142 H 135 H (70-110) mg/dL Calcium (8.4-10.2) mg/dL Magnesium (1.6-2.3) mg/dL Total Bilirubin (0.2-1.3) mg/dL AST (17-59) U/L Alkaline Phosphatase (38-126) U/L Total Protein (6.3-8.2) g/dL Albumin (3.5-5.0) g/dL Crossmatch 10/06/22 10/06/22 10/06/22 Range/Units 04:03 04:06 04:06 WBC (3.8-10.6) k/uL RBC 2.85 L (4.30-5.90) m/uL Hgb 9.1 L (13.0-17.5) gm/dL Hct 25.9 L (39.0-53.0) % RDW (11.5-15.5) % Plt Count 95 L (150-450) k/uL Neutrophils # 8.5 H (1.3-7.7) k/uL Lymphocytes # 0.4 L (1.0-4.8) k/uL INR (<1.2) ABG pH (7.35-7.45) ABG pO2 (83-108) mmHg ABG HCO3 (21-25) mmol/L ABG Total CO2 (19-24) mmol/L ABG O2 Saturation (94-97) % Hemoglobin (13.0-17.5) gm/dL Potassium (3.5-5.1) mmol/L Chloride (98-107) mmol/L BUN 27 H (9-20) mg/dL Creatinine 1.54 H (0.66-1.25) mg/dL Glucose 129 H (74-99) mg/dL POC Glucose (mg/dL) 138 H (70-110) mg/dL Calcium 7.6 L (8.4-10.2) mg/dL Magnesium 2.8 H (1.6-2.3) mg/dL Total Bilirubin (0.2-1.3) mg/dL AST 63 H (17-59) U/L Alkaline Phosphatase 27 L (38-126) U/L Total Protein 5.0 L (6.3-8.2) g/dL Albumin 3.4 L (3.5-5.0) g/dL Crossmatch 10/06/22 10/06/22 Range/Units 04:58 06:10 WBC (3.8-10.6) k/uL RBC (4.30-5.90) m/uL Hgb (13.0-17.5) gm/dL Hct (39.0-53.0) % RDW (11.5-15.5) % Plt Count (150-450) k/uL Neutrophils # (1.3-7.7) k/uL Lymphocytes # (1.0-4.8) k/uL INR (<1.2) ABG pH (7.35-7.45) ABG pO2 (83-108) mmHg ABG HCO3 (21-25) mmol/L ABG Total CO2 (19-24) mmol/L ABG O2 Saturation (94-97) % Hemoglobin (13.0-17.5) gm/dL Potassium (3.5-5.1) mmol/L Chloride (98-107) mmol/L BUN (9-20) mg/dL Creatinine (0.66-1.25) mg/dL Glucose (74-99) mg/dL POC Glucose (mg/dL) 135 H 118 H (70-110) mg/dL Calcium (8.4-10.2) mg/dL Magnesium (1.6-2.3) mg/dL Total Bilirubin (0.2-1.3) mg/dL AST (17-59) U/L Alkaline Phosphatase (38-126) U/L Total Protein (6.3-8.2) g/dL Albumin (3.5-5.0) g/dL Crossmatch Assessment and Plan Assessment: Coronary artery disease, status post 2 vessel CABG on 10/05 Severe mitral regurgitation status post atrial valve repair Hypothyroidism [place] disease Hypertension Expected postop anemia Mild thrombocytopenia chronic kidney disease stage III Plan: Continue with Cortef current dose Pain management Continue with metoprolol Cardiology consult Pulmonary consult Cardiothoracic surgery team primary team on the case Labs and medication were reviewed.. Continue same treatment. Continue with symptomatic treatment. Resume home medication. Monitor labs and vitals. DVT and GI prophylaxis. Further recommendations as per clinical course of the patient DVT prophylaxis: Subcutaneous heparin GI Prophylaxis: Ppi Prognosis is guarded
[2022-10-06] MEDS ORDERED: bisacodyL 10 MG SUPP RECTAL PRN (09:00)
[2022-10-06] MEDS ORDERED: HYDROCORTISONE 20 MG TAB PO SCH (09:00)
[2022-10-06] MEDS ORDERED: METOPROLOL TARTRATE 12.5 MG TAB PO SCH (09:00)
[2022-10-06] MEDS ORDERED: MAGNESIUM HYDROXIDE 2,400 MG/30 ML CUP PO PRN (09:00)
[2022-10-06] MEDS ORDERED: PANTOPRAZOLE 40 MG/10 ML VIAL IVP SCH (09:00)
[2022-10-06 09:02] LABS: Glucose,Whole Blood 123 mg/dL (70-110)
--- NOTE | 2022-10-06 09:50 | P.PN ---
Subjective Progress Note Date: 10/06/22 Principal diagnosis: Coronary artery disease, severe mitral valve regurgitation. 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 POD #1 CABG 2 with MIGUEL to LAD, left radial artery to diagonal, mitral valve repair with artificial cords to P2 2 and annuloplasty with a 30 mm AnnuloFlex band. Ligation of the left atrial appendage with a 2 layer running closure of 3-0 Prolene. Endovascular harvest of the left radial artery. LASHAE by anesthesia. Postoperative acute blood loss anemia, expected given cardiopulmonary bypass and hemodilution. The patient was seen and examined in follow-up today 10/06/2022 at his bedside in the intensive care unit. Currently he is sitting up to the bedside chair, is awake, alert, oriented 3 and is in no acute apparent distress. Denies any complaints of shortness of breath although is complaining of some surgical type pain to his chest tube insertion sites with taking a deep breath. Currently rating his pain 2 out of 10 on the pain scale. He was successfully extubated last evening at 6:35 PM, is currently on 2 L nasal cannula with oxygen saturations 99% and he is achieving 1500 mL on his incentive spirometry with encouragement. Bedside telemetry is DDD paced rhythm at 80, underlying rhythm is a bradycardic rhythm in the 30s. Right IJ Cordis and [place]-Sadi cath remains in place, current hemodynamic showing a cardiac output of 5.2, cardiac index 2.5, PA pressures 23/11 and CVP 10 mmHg. He remains on Cardizem drip at 5 mg per hour for radial artery spasm prophylaxis. Mediastinal and left pleural chest tubes remain in place to low continuous wall suction -20 cm H2O. No air leak is present. Draining thin serosanguineous drainage. Mediastinal chest tubes drai doreen 200 mL output in the last 8 hours and 550 mL output since surgery. Left pleural chest tube drained 150 mL output in the last 8 hours and 210 mL output since surgery. The patient reports that he has been having bouts of nausea and lightheadedness with ambulating. Chest x-ray was reviewed. Laboratory results reviewed. Objective - Vital Signs Vital signs: Vital Signs Temp 98.6 F 10/06/22 04:00 Pulse 80 10/06/22 06:00 Resp 18 10/06/22 06:00 BP 104/60 10/06/22 05:30 Pulse Ox 99 10/06/22 06:00 FiO2 50 10/05/22 18:30 Intake & Output 10/05/22 10/06/22 10/06/22 18:59 06:59 18:59 Intake Total 990.468 1292.888 168.976 Output Total 2600 1020 65 Balance -1760.308 309.888 103.976 Weight 83 kg Intake: IV 119 958 168 0.9 PRESSURE BAG 36 108 18 ACETAMINOPHEN IV (For NPO 100 ) 1,000 mg In Empty Bag 1 bag @ 400 mls/hr IVPB Q6HR ALIYA Rx#:[id number] CO/CI 80 150 50 Lactated Ringers 1,000 ml 550 100 @ 50 mls/hr IV .Q20H ALIYA Rx#:[id number] ceFAZolin 2 gm In Sodium 50 Chloride 0.9% 50 ml @ 100 mls/hr IVPB Q8HR ALIYA Rx# :[id number] Intake, IV Titration 720.692 371.888 0.976 Amount Albumin Human 5% 250 ml 500 250 In Empty Bag 1 bag @ 250 mls/hr IVPB Q1HR PRN Rx#: [id number] Dexmedetomidine/0.9% NaCl 3.266 (Pmx) 400 mcg In Empty Bag 1 bag @ Titrate IV . Q0M ALIYA Rx#:[id number] Diltiazem 125 mg In 50.333 Sodium Chloride 0.9% 100 ml @ 5 MG/HR 5 mls/hr IV .Q24H ALIYA Rx#:[id number] Insulin Regular 100 unit 2.357 21.555 0.976 In Sodium Chloride 0.9% 100 ml @ Per Protocol IV .Q0M ALIYA Rx#:[id number] Lactated Ringers 1,000 ml 200 50 @ 50 mls/hr IV .Q20H ALIYA Rx#:[id number] propofoL 1,000 mg In 15.069 Empty Bag 1 bag @ Titrate IV .Q0M ALIYA Rx#: [id number] Output: Chest Tube Drainage 310 470 20 Chest Tube Mediastinal 250 300 20 Pleural Catheter Left 60 170 0 Drainage 20 Left Wrist 20 Urine 1270 550 45 Estimated Blood Loss 1000 Other: Voiding Method Indwelling Catheter Indwelling Catheter Indwelling Catheter ABP, PAP, CO, CI - Last Documented Arterial Blood Pressure 103/51 Pulmonary Artery Pressure 32/12 Cardiac Output 5.5 Cardiac Index 2.6 - Exam CONSTITUTIONAL: Sitting up to the bedside chair in the intensive care unit, appears comfortable, cooperative, no apparent acute distress. HEENT: Neck is supple, no JVD, no lymphadenopathy. Right IJ Cordis and [place]- Sadi catheter in place and functioning. RESPIRATORY: Lungs sounds essentially clear throughout, diminished to his bilateral bases. Respirations are symmetrical and nonlabored. Currently on 2 L nasal cannula with oxygen saturations 99%. Able to achieve 1500 mL on his incentive spirometry. Strong cough. CARDIOVASCULAR: Regular rhythm and rate. S1 and S2 present, negative for S3, gallop or murmur. Pericardial rub. Sternum is stable. Palpable peripheral pulses bilaterally, No calf pain or tenderness noted. Heart hugger in place with patient demonstrating appropriate use. Knee-high NAVA hose and sequential compression devices in place to his bilateral lower extremities. GASTROINTESTINAL: Abdomen soft, nontender, nondistended. Hypoactive bowel sounds present 4 quadrants. Tolerating clear liquid diet. Passing flatus. No guarding or rigidity. GENITOURINARY: Hazel present draining clear, yellow urine. Urine output 260 mL in the last 8 hours. INTEGUMENTARY: Skin is warm and dry with no evidence of clubbing or cyanosis. Midline sternal incision clean dry and well approximated, covered with dry intact dressing. Left arm radial artery harvest sites clean, dry and approximated. No drainage or redness is present. NEUROLOGIC: Cranial nerves II through XII intact. No focal deficits. MUSKULOSKELETAL: Able to move all extremities, strength equal bilaterally, generalized weakness. PSYCHIATRIC: Alert and oriented to person place and time, appropriate affect, intact judgment and insight. INVASIVE LINES AND TUBES: Mediastinal/left pleural chest tubes present and connected to low continuous wall suction, no air leaks present. Mediastinal tubes with 200 mL of thin serosanguineous drainage overnight, 550 mL output in the last 24 hours. Left pleural chest tube with 115 mL of thin serosanguineous drainage overnight, 210 mL output in the last 24 hours. Atrial and ventricular epicardial pacemaker wires present, connected to generator, DDD mode of 80 BPM. Right internal jugular [place]/Cordis, right radial arterial line present. Last CO 5.2, CI 2.5, PA 23/11 and CVP 10 mmHg. Left arm TUTU drain in place with scant thin serosanguineous drainage, 10 mL output in the last 8 hours. - Allied health notes Allied health notes reviewed: nursing - Labs CBC & Chem 7: 10/06/22 04:06 10/06/22 04:06 Labs: Abnormal Lab Results - Last 24 Hours (Table) 10/02/22 10/05/22 10/05/22 Range/Units 09:23 08:00 11:00 WBC (3.8-10.6) k/uL RBC 3.34 L (4.30-5.90) m/uL Hgb 10.3 L (13.0-17.5) gm/dL Hct 29.2 L (39.0-53.0) % RDW (11.5-15.5) % Plt Count 87 L (150-450) k/uL Neutrophils # 8.2 H (1.3-7.7) k/uL Lymphocytes # 0.4 L (1.0-4.8) k/uL INR (<1.2) ABG pH (7.35-7.45) ABG pO2 326 H (83-108) mmHg ABG HCO3 (21-25) mmol/L ABG Total CO2 26 H (19-24) mmol/L ABG O2 Saturation 99.7 H (94-97) % Hemoglobin 12.7 L (13.0-17.5) gm/dL Potassium (3.5-5.1) mmol/L Chloride (98-107) mmol/L BUN (9-20) mg/dL Creatinine (0.66-1.25) mg/dL Glucose (74-99) mg/dL POC Glucose (mg/dL) (70-110) mg/dL Calcium (8.4-10.2) mg/dL Magnesium (1.6-2.3) mg/dL Total Bilirubin (0.2-1.3) mg/dL AST (17-59) U/L Alkaline Phosphatase (38-126) U/L Total Protein (6.3-8.2) g/dL Albumin (3.5-5.0) g/dL Crossmatch See Detail 10/05/22 10/05/22 10/05/22 Range/Units 11:00 11:00 14:11 WBC (3.8-10.6) k/uL RBC (4.30-5.90) m/uL Hgb (13.0-17.5) gm/dL Hct (39.0-53.0) % RDW (11.5-15.5) % Plt Count (150-450) k/uL Neutrophils # (1.3-7.7) k/uL Lymphocytes # (1.0-4.8) k/uL INR 1.2 H (<1.2) ABG pH (7.35-7.45) ABG pO2 (83-108) mmHg ABG HCO3 (21-25) mmol/L ABG Total CO2 (19-24) mmol/L ABG O2 Saturation (94-97) % Hemoglobin (13.0-17.5) gm/dL Potassium (3.5-5.1) mmol/L Chloride 109 H (98-107) mmol/L BUN 22 H (9-20) mg/dL Creatinine 1.38 H (0.66-1.25) mg/dL Glucose 115 H (74-99) mg/dL POC Glucose (mg/dL) 124 H (70-110) mg/dL Calcium 7.7 L (8.4-10.2) mg/dL Magnesium 2.9 H (1.6-2.3) mg/dL Total Bilirubin (0.2-1.3) mg/dL AST (17-59) U/L Alkaline Phosphatase 34 L (38-126) U/L Total Protein 4.3 L (6.3-8.2) g/dL Albumin 2.8 L (3.5-5.0) g/dL Crossmatch 10/05/22 10/05/22 10/05/22 Range/Units 15:36 15:59 15:59 WBC 13.1 H (3.8-10.6) k/uL RBC 3.60 L (4.30-5.90) m/uL Hgb 11.5 L (13.0-17.5) gm/dL Hct 32.4 L (39.0-53.0) % RDW (11.5-15.5) % Plt Count 108 L (150-450) k/uL Neutrophils # 11.6 H (1.3-7.7) k/uL Lymphocytes # 0.6 L (1.0-4.8) k/uL INR (<1.2) ABG pH 7.33 L (7.35-7.45) ABG pO2 >400 H (83-108) mmHg ABG HCO3 (21-25) mmol/L ABG Total CO2 (19-24) mmol/L ABG O2 Saturation 100.0 H (94-97) % Hemoglobin (13.0-17.5) gm/dL Potassium 5.7 H (3.5-5.1) mmol/L Chloride (98-107) mmol/L BUN 21 H (9-20) mg/dL Creatinine 1.50 H (0.66-1.25) mg/dL Glucose 130 H (74-99) mg/dL POC Glucose (mg/dL) (70-110) mg/dL Calcium 7.9 L (8.4-10.2) mg/dL Magnesium 2.9 H (1.6-2.3) mg/dL Total Bilirubin 1.5 H (0.2-1.3) mg/dL AST (17-59) U/L Alkaline Phosphatase (38-126) U/L Total Protein 4.8 L (6.3-8.2) g/dL Albumin 3.2 L (3.5-5.0) g/dL Crossmatch 10/05/22 10/05/22 10/05/22 Range/Units 16:01 17:19 18:22 WBC (3.8-10.6) k/uL RBC (4.30-5.90) m/uL Hgb (13.0-17.5) gm/dL Hct (39.0-53.0) % RDW (11.5-15.5) % Plt Count (150-450) k/uL Neutrophils # (1.3-7.7) k/uL Lymphocytes # (1.0-4.8) k/uL INR (<1.2) ABG pH (7.35-7.45) ABG pO2 148 H (83-108) mmHg ABG HCO3 27 H (21-25) mmol/L ABG Total CO2 28 H (19-24) mmol/L ABG O2 Saturation 99.6 H (94-97) % Hemoglobin (13.0-17.5) gm/dL Potassium (3.5-5.1) mmol/L Chloride (98-107) mmol/L BUN (9-20) mg/dL Creatinine (0.66-1.25) mg/dL Glucose (74-99) mg/dL POC Glucose (mg/dL) 136 H 135 H (70-110) mg/dL Calcium (8.4-10.2) mg/dL Magnesium (1.6-2.3) mg/dL Total Bilirubin (0.2-1.3) mg/dL AST (17-59) U/L Alkaline Phosphatase (38-126) U/L Total Protein (6.3-8.2) g/dL Albumin (3.5-5.0) g/dL Crossmatch 10/05/22 10/05/22 10/05/22 Range/Units 18:23 18:25 19:07 WBC (3.8-10.6) k/uL RBC 2.89 L (4.30-5.90) m/uL Hgb 9.3 L D (13.0-17.5) gm/dL Hct 26.0 L (39.0-53.0) % RDW (11.5-15.5) % Plt Count 80 L (150-450) k/uL Neutrophils # 9.7 H (1.3-7.7) k/uL Lymphocytes # 0.3 L (1.0-4.8) k/uL INR (<1.2) ABG pH (7.35-7.45) ABG pO2 (83-108) mmHg ABG HCO3 (21-25) mmol/L ABG Total CO2 (19-24) mmol/L ABG O2 Saturation (94-97) % Hemoglobin (13.0-17.5) gm/dL Potassium (3.5-5.1) mmol/L Chloride (98-107) mmol/L BUN (9-20) mg/dL Creatinine (0.66-1.25) mg/dL Glucose (74-99) mg/dL POC Glucose (mg/dL) 212 H 185 H (70-110) mg/dL Calcium (8.4-10.2) mg/dL Magnesium (1.6-2.3) mg/dL Total Bilirubin (0.2-1.3) mg/dL AST (17-59) U/L Alkaline Phosphatase (38-126) U/L Total Protein (6.3-8.2) g/dL Albumin (3.5-5.0) g/dL Crossmatch 10/05/22 10/05/22 10/05/22 Range/Units 20:04 20:13 20:57 WBC (3.8-10.6) k/uL RBC 2.96 L (4.30-5.90) m/uL Hgb 9.2 L (13.0-17.5) gm/dL Hct 26.0 L (39.0-53.0) % RDW 15.7 H (11.5-15.5) % Plt Count 85 L (150-450) k/uL Neutrophils # 8.4 H (1.3-7.7) k/uL Lymphocytes # 0.2 L (1.0-4.8) k/uL INR (<1.2) ABG pH (7.35-7.45) ABG pO2 (83-108) mmHg ABG HCO3 (21-25) mmol/L ABG Total CO2 (19-24) mmol/L ABG O2 Saturation (94-97) % Hemoglobin (13.0-17.5) gm/dL Potassium (3.5-5.1) mmol/L Chloride (98-107) mmol/L BUN (9-20) mg/dL Creatinine (0.66-1.25) mg/dL Glucose (74-99) mg/dL POC Glucose (mg/dL) 170 H 148 H (70-110) mg/dL Calcium (8.4-10.2) mg/dL Magnesium (1.6-2.3) mg/dL Total Bilirubin (0.2-1.3) mg/dL AST (17-59) U/L Alkaline Phosphatase (38-126) U/L Total Protein (6.3-8.2) g/dL Albumin (3.5-5.0) g/dL Crossmatch 10/05/22 10/05/22 10/06/22 Range/Units 22:01 22:56 00:06 WBC (3.8-10.6) k/uL RBC (4.30-5.90) m/uL Hgb (13.0-17.5) gm/dL Hct (39.0-53.0) % RDW (11.5-15.5) % Plt Count (150-450) k/uL Neutrophils # (1.3-7.7) k/uL Lymphocytes # (1.0-4.8) k/uL INR (<1.2) ABG pH (7.35-7.45) ABG pO2 (83-108) mmHg ABG HCO3 (21-25) mmol/L ABG Total CO2 (19-24) mmol/L ABG O2 Saturation (94-97) % Hemoglobin (13.0-17.5) gm/dL Potassium (3.5-5.1) mmol/L Chloride (98-107) mmol/L BUN (9-20) mg/dL Creatinine (0.66-1.25) mg/dL Glucose (74-99) mg/dL POC Glucose (mg/dL) 134 H 135 H 140 H (70-110) mg/dL Calcium (8.4-10.2) mg/dL Magnesium (1.6-2.3) mg/dL Total Bilirubin (0.2-1.3) mg/dL AST (17-59) U/L Alkaline Phosphatase (38-126) U/L Total Protein (6.3-8.2) g/dL Albumin (3.5-5.0) g/dL Crossmatch 10/06/22 10/06/22 10/06/22 Range/Units 01:00 01:56 02:52 WBC (3.8-10.6) k/uL RBC (4.30-5.90) m/uL Hgb (13.0-17.5) gm/dL Hct (39.0-53.0) % RDW (11.5-15.5) % Plt Count (150-450) k/uL Neutrophils # (1.3-7.7) k/uL Lymphocytes # (1.0-4.8) k/uL INR (<1.2) ABG pH (7.35-7.45) ABG pO2 (83-108) mmHg ABG HCO3 (21-25) mmol/L ABG Total CO2 (19-24) mmol/L ABG O2 Saturation (94-97) % Hemoglobin (13.0-17.5) gm/dL Potassium (3.5-5.1) mmol/L Chloride (98-107) mmol/L BUN (9-20) mg/dL Creatinine (0.66-1.25) mg/dL Glucose (74-99) mg/dL POC Glucose (mg/dL) 139 H 142 H 135 H (70-110) mg/dL Calcium (8.4-10.2) mg/dL Magnesium (1.6-2.3) mg/dL Total Bilirubin (0.2-1.3) mg/dL AST (17-59) U/L Alkaline Phosphatase (38-126) U/L Total Protein (6.3-8.2) g/dL Albumin (3.5-5.0) g/dL Crossmatch 10/06/22 10/06/22 10/06/22 Range/Units 04:03 04:06 04:06 WBC (3.8-10.6) k/uL RBC 2.85 L (4.30-5.90) m/uL Hgb 9.1 L (13.0-17.5) gm/dL Hct 25.9 L (39.0-53.0) % RDW (11.5-15.5) % Plt Count 95 L (150-450) k/uL Neutrophils # 8.5 H (1.3-7.7) k/uL Lymphocytes # 0.4 L (1.0-4.8) k/uL INR (<1.2) ABG pH (7.35-7.45) ABG pO2 (83-108) mmHg ABG HCO3 (21-25) mmol/L ABG Total CO2 (19-24) mmol/L ABG O2 Saturation (94-97) % Hemoglobin (13.0-17.5) gm/dL Potassium (3.5-5.1) mmol/L Chloride (98-107) mmol/L BUN 27 H (9-20) mg/dL Creatinine 1.54 H (0.66-1.25) mg/dL Glucose 129 H (74-99) mg/dL POC Glucose (mg/dL) 138 H (70-110) mg/dL Calcium 7.6 L (8.4-10.2) mg/dL Magnesium 2.8 H (1.6-2.3) mg/dL Total Bilirubin (0.2-1.3) mg/dL AST 63 H (17-59) U/L Alkaline Phosphatase 27 L (38-126) U/L Total Protein 5.0 L (6.3-8.2) g/dL Albumin 3.4 L (3.5-5.0) g/dL Crossmatch 10/06/22 10/06/22 10/06/22 Range/Units 04:58 06:10 07:08 WBC (3.8-10.6) k/uL RBC (4.30-5.90) m/uL Hgb (13.0-17.5) gm/dL Hct (39.0-53.0) % RDW (11.5-15.5) % Plt Count (150-450) k/uL Neutrophils # (1.3-7.7) k/uL Lymphocytes # (1.0-4.8) k/uL INR (<1.2) ABG pH (7.35-7.45) ABG pO2 (83-108) mmHg ABG HCO3 (21-25) mmol/L ABG Total CO2 (19-24) mmol/L ABG O2 Saturation (94-97) % Hemoglobin (13.0-17.5) gm/dL Potassium (3.5-5.1) mmol/L Chloride (98-107) mmol/L BUN (9-20) mg/dL Creatinine (0.66-1.25) mg/dL Glucose (74-99) mg/dL POC Glucose (mg/dL) 135 H 118 H 133 H (70-110) mg/dL Calcium (8.4-10.2) mg/dL Magnesium (1.6-2.3) mg/dL Total Bilirubin (0.2-1.3) mg/dL AST (17-59) U/L Alkaline Phosphatase (38-126) U/L Total Protein (6.3-8.2) g/dL Albumin (3.5-5.0) g/dL Crossmatch 10/06/22 Range/Units 08:14 WBC (3.8-10.6) k/uL RBC (4.30-5.90) m/uL Hgb (13.0-17.5) gm/dL Hct (39.0-53.0) % RDW (11.5-15.5) % Plt Count (150-450) k/uL Neutrophils # (1.3-7.7) k/uL Lymphocytes # (1.0-4.8) k/uL INR (<1.2) ABG pH (7.35-7.45) ABG pO2 (83-108) mmHg ABG HCO3 (21-25) mmol/L ABG Total CO2 (19-24) mmol/L ABG O2 Saturation (94-97) % Hemoglobin (13.0-17.5) gm/dL Potassium (3.5-5.1) mmol/L Chloride (98-107) mmol/L BUN (9-20) mg/dL Creatinine (0.66-1.25) mg/dL Glucose (74-99) mg/dL POC Glucose (mg/dL) 123 H (70-110) mg/dL Calcium (8.4-10.2) mg/dL Magnesium (1.6-2.3) mg/dL Total Bilirubin (0.2-1.3) mg/dL AST (17-59) U/L Alkaline Phosphatase (38-126) U/L Total Protein (6.3-8.2) g/dL Albumin (3.5-5.0) g/dL Crossmatch - Imaging and Cardiology Chest x-ray: report reviewed, image reviewed Assessment and Plan Assessment: Coronary artery disease, status post 2 vessel coronary artery bypass grafting Severe mitral valve regurgitation, status post mitral valve repair History of [place]'s disease, currently taking hydrocortisone 40 mg in the morning and 20 mg in the afternoon Hypertension Hyperlipidemia Chronic kidney disease, baseline creatinine 1.4-1.6 History of osteoarthritis History of skin cancer Lifetime nonsmoker Postoperative acute blood loss anemia, expected given cardiopulmonary bypass and hemodilution Plan: Continue to maximize medical therapy with statin and Plavix. Will hold beta declan today, as the patient has a bradycardic rhythm underlying the pacemaker. Continue to hold aspirin as it is a contraindication as the patient has an ALLERGY. Wean O2 as tolerated. Encourage incentive spirometry use 10 times every hour while awake. Bronchodilators per pulmonology. Increase activity, ambulate as tolerated. PT/OT/cardiac rehab consulted. Will monitor daily labs and chest x-rays. Electrolyte replacement protocol. GI/DVT prophylaxis. Pain control with current medication regimen. Insulin management per internal medicine service. Patient is not a diabetic with preoperative hemoglobin A1c 4.9%, needs tight blood sugar control to prevent infection and promote healing, patient on chronic steroids. Discontinue [place]. Connect Cordis to continuous CVP monitoring. Continue mediastinal/left pleural chest tubes for another 24 hours, monitor output. Continue left wrist TUTU drain for another 24 hours. Continue Hazel catheter for another 24 hours for strict accurate intake and output. Daily weights. Appropriate home meds resumed. Patient was placed on hydrocortisone 40 mg by mouth in the morning and 20 mg by mouth in the afternoon per Dr. Eason's recommendations. Place backup pacemaker generator on an AAI of 60. More recommendations to follow based on patient's clinical course. Time with Patient: Greater than 30
--- NOTE | 2022-10-06 09:54 | P.PN ---
Subjective Progress Note Date: 10/06/22 72-year-old male patient underwent two-vessel bypass surgery and mitral valve repair. The patient was having exertional dyspnea and fatigue. He was referred to cardiology and further investigation revealed that the patient had significant mitral regurgitation. He underwent a cardiac catheterization and LASHAE. Cardiac catheterization showed proximal LAD stenosis in the order of 90%, and was also involving the first diagonal branch. There was also a normal circumflex and RCA. 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 Aortic valve was within normal limits. Based on that, the patient was taken to surgery. The patient underwent two-vessel bypass surgery using a radial and MIGUEL to LAD. The patient also had mitral valve repair. Currently is on assist- control mode of mechanical ventilation. His well sedated on propofol which is running at 10 mcg/kg/m. He is on a rate of 12, tidal volume of 550, FiO2 of 50% and a PEEP of 5. Chest x-ray showed adequate expansion of both lungs. The patient has no evidence of any pneumothorax. The patient has a left pleural and 2 mediastinal chest tubes. The patient is hemodynamically stable at this point in time. He is on a Cardizem drip at 5 mg an hour. He is also on a nitroglycerin drip. Output from the chest tubes have been in the order of less than 100 mL. No evidence of any air leak. The blood gas showed a pH of 7.33 with a pCO2 of 44 and pO2 more than 400. FiO2 was brought down to 50%. BUN is 21 with a creatinine 1.5 and a potassium level of 5.7. The Orion 15.4 with a hemoglobin of 11.5. Current cardiac output is 4.9 with an index of 2.3. PA pressures of 30/19. On today's evaluation of 10/07/2023, the patient remains extubated. The patient was weaned off the mechanical ventilator and the patient was explained about any major difficulties. Chest x-ray from today shows the Fairfax-Sadi being in a good location. The patient left pleural and 2 mediastinal chest tubes. The gastric bubble is seen is quite large. No other acute abnormalities seen. No evidence of any air leak and the chest tubes. No evidence of any pneumothorax. The patient is currently on oxygen and is currently on 2 L nasal cannula with pulse ox of 99%. Cardiac operative 5.5 with an index of 2.6. Patient is on no pressors. Nitroglycerin drip has been discontinued. The patient was also Cardizem drip that was also discontinued. No focal neurological deficits. Using the incentive spirometer. Cardiac rhythm is still placed, AAI at the rate of 60. He is communicating. Is a bit lethargic. Hemoglobin is at 9.1, white cell count is at 9.4, platelet count is at 95, BUN is at 27 with a creatinine of 1.5 and sodium levels of 137. Noted the creatinine has been stable since yesterday. Objective - Vital Signs Vital signs: Vital Signs Temp 98.6 F 10/06/22 04:00 Pulse 80 10/06/22 06:00 Resp 18 10/06/22 06:00 BP 104/60 10/06/22 05:30 Pulse Ox 99 10/06/22 06:00 FiO2 50 10/05/22 18:30 Intake & Output 10/05/22 10/06/22 10/06/22 18:59 06:59 18:59 Intake Total 150.760 5062.888 168.976 Output Total 2600 1020 65 Balance -1760.308 309.888 103.976 Weight 83 kg Intake: IV 119 958 168 0.9 PRESSURE BAG 36 108 18 ACETAMINOPHEN IV (For NPO 100 ) 1,000 mg In Empty Bag 1 bag @ 400 mls/hr IVPB Q6HR ALIYA Rx#:[id number] CO/CI 80 150 50 Lactated Ringers 1,000 ml 550 100 @ 50 mls/hr IV .Q20H ALIYA Rx#:[id number] ceFAZolin 2 gm In Sodium 50 Chloride 0.9% 50 ml @ 100 mls/hr IVPB Q8HR ALIYA Rx# :[id number] Intake, IV Titration 720.692 371.888 0.976 Amount Albumin Human 5% 250 ml 500 250 In Empty Bag 1 bag @ 250 mls/hr IVPB Q1HR PRN Rx#: [id number] Dexmedetomidine/0.9% NaCl 3.266 (Pmx) 400 mcg In Empty Bag 1 bag @ Titrate IV . Q0M ALIYA Rx#:[id number] Diltiazem 125 mg In 50.333 Sodium Chloride 0.9% 100 ml @ 5 MG/HR 5 mls/hr IV .Q24H ALIYA Rx#:[id number] Insulin Regular 100 unit 2.357 21.555 0.976 In Sodium Chloride 0.9% 100 ml @ Per Protocol IV .Q0M ALIYA Rx#:[id number] Lactated Ringers 1,000 ml 200 50 @ 50 mls/hr IV .Q20H ALIYA Rx#:[id number] propofoL 1,000 mg In 15.069 Empty Bag 1 bag @ Titrate IV .Q0M ALIYA Rx#: [id number] Output: Chest Tube Drainage 310 470 20 Chest Tube Mediastinal 250 300 20 Pleural Catheter Left 60 170 0 Drainage 20 Left Wrist 20 Urine 1270 550 45 Estimated Blood Loss 1000 Other: Voiding Method Indwelling Catheter Indwelling Catheter Indwelling Catheter ABP, PAP, CO, CI - Last Documented Arterial Blood Pressure 103/51 Pulmonary Artery Pressure 32/12 Cardiac Output 5.5 Cardiac Index 2.6 - Exam CONSTITUTIONAL: Sitting up to the bedside chair in the intensive care unit, appears comfortable, cooperative, no apparent acute distress. HEENT: Neck is supple, no JVD, no lymphadenopathy. Right IJ Cordis and Fair[place]- Sadi catheter in place and functioning. RESPIRATORY: Lungs sounds essentially clear throughout, diminished to his bilateral bases. Respirations are symmetrical and nonlabored. Currently on 2 L nasal cannula with oxygen saturations 99%. Able to achieve 1500 mL on his incentive spirometry. Strong cough. CARDIOVASCULAR: Regular rhythm and rate. S1 and S2 present, negative for S3, gallop or murmur. Pericardial rub. Sternum is stable. Palpable peripheral pulses bilaterally, No calf pain or tenderness noted. Heart hugger in place with patient demonstrating appropriate use. Knee-high NAVA hose and sequential compression devices in place to his bilateral lower extremities. GASTROINTESTINAL: Abdomen soft, nontender, nondistended. Hypoactive bowel sounds present 4 quadrants. Tolerating clear liquid diet. Passing flatus. No guarding or rigidity. GENITOURINARY: Hazel present draining clear, yellow urine. Urine output 260 mL in the last 8 hours. INTEGUMENTARY: Skin is warm and dry with no evidence of clubbing or cyanosis. Midline sternal incision clean dry and well approximated, covered with dry intact dressing. Left arm radial artery harvest sites clean, dry and approximated. No drainage or redness is present. NEUROLOGIC: Cranial nerves II through XII intact. No focal deficits. MUSKULOSKELETAL: Able to move all extremities, strength equal bilaterally, generalized weakness. PSYCHIATRIC: Alert and oriented to person place and time, appropriate affect, intact judgment and insight. INVASIVE LINES AND TUBES: Mediastinal/left pleural chest tubes present and connected to low continuous wall suction, no air leaks present. Mediastinal tubes with 200 mL of thin serosanguineous drainage overnight, 550 mL output in the last 24 hours. Left pleural chest tube with 115 mL of thin serosanguineous drainage overnight, 210 mL output in the last 24 hours. Atrial and ventricular epicardial pacemaker wires present, connected to generator, DDD mode of 80 BPM. Right internal jugular Fairfax/Cordis, right radial arterial line present. Last CO 5.2, CI 2.5, PA 23/11 and CVP 10 mmHg. Left arm TUTU drain in place with scant thin serosanguineous drainage, 10 mL output in the last 8 hours. - Labs CBC & Chem 7: 10/06/22 04:06 10/06/22 04:06 Labs: Abnormal Lab Results - Last 24 Hours (Table) 10/02/22 10/05/22 10/05/22 Range/Units 09:23 08:00 11:00 WBC (3.8-10.6) k/uL RBC 3.34 L (4.30-5.90) m/uL Hgb 10.3 L (13.0-17.5) gm/dL Hct 29.2 L (39.0-53.0) % RDW (11.5-15.5) % Plt Count 87 L (150-450) k/uL Neutrophils # 8.2 H (1.3-7.7) k/uL Lymphocytes # 0.4 L (1.0-4.8) k/uL INR (<1.2) ABG pH (7.35-7.45) ABG pO2 326 H (83-108) mmHg ABG HCO3 (21-25) mmol/L ABG Total CO2 26 H (19-24) mmol/L ABG O2 Saturation 99.7 H (94-97) % Hemoglobin 12.7 L (13.0-17.5) gm/dL Potassium (3.5-5.1) mmol/L Chloride (98-107) mmol/L BUN (9-20) mg/dL Creatinine (0.66-1.25) mg/dL Glucose (74-99) mg/dL POC Glucose (mg/dL) (70-110) mg/dL Calcium (8.4-10.2) mg/dL Magnesium (1.6-2.3) mg/dL Total Bilirubin (0.2-1.3) mg/dL AST (17-59) U/L Alkaline Phosphatase (38-126) U/L Total Protein (6.3-8.2) g/dL Albumin (3.5-5.0) g/dL Crossmatch See Detail 10/05/22 10/05/22 10/05/22 Range/Units 11:00 11:00 14:11 WBC (3.8-10.6) k/uL RBC (4.30-5.90) m/uL Hgb (13.0-17.5) gm/dL Hct (39.0-53.0) % RDW (11.5-15.5) % Plt Count (150-450) k/uL Neutrophils # (1.3-7.7) k/uL Lymphocytes # (1.0-4.8) k/uL INR 1.2 H (<1.2) ABG pH (7.35-7.45) ABG pO2 (83-108) mmHg ABG HCO3 (21-25) mmol/L ABG Total CO2 (19-24) mmol/L ABG O2 Saturation (94-97) % Hemoglobin (13.0-17.5) gm/dL Potassium (3.5-5.1) mmol/L Chloride 109 H (98-107) mmol/L BUN 22 H (9-20) mg/dL Creatinine 1.38 H (0.66-1.25) mg/dL Glucose 115 H (74-99) mg/dL POC Glucose (mg/dL) 124 H (70-110) mg/dL Calcium 7.7 L (8.4-10.2) mg/dL Magnesium 2.9 H (1.6-2.3) mg/dL Total Bilirubin (0.2-1.3) mg/dL AST (17-59) U/L Alkaline Phosphatase 34 L (38-126) U/L Total Protein 4.3 L (6.3-8.2) g/dL Albumin 2.8 L (3.5-5.0) g/dL Crossmatch 10/05/22 10/05/22 10/05/22 Range/Units 15:36 15:59 15:59 WBC 13.1 H (3.8-10.6) k/uL RBC 3.60 L (4.30-5.90) m/uL Hgb 11.5 L (13.0-17.5) gm/dL Hct 32.4 L (39.0-53.0) % RDW (11.5-15.5) % Plt Count 108 L (150-450) k/uL Neutrophils # 11.6 H (1.3-7.7) k/uL Lymphocytes # 0.6 L (1.0-4.8) k/uL INR (<1.2) ABG pH 7.33 L (7.35-7.45) ABG pO2 >400 H (83-108) mmHg ABG HCO3 (21-25) mmol/L ABG Total CO2 (19-24) mmol/L ABG O2 Saturation 100.0 H (94-97) % Hemoglobin (13.0-17.5) gm/dL Potassium 5.7 H (3.5-5.1) mmol/L Chloride (98-107) mmol/L BUN 21 H (9-20) mg/dL Creatinine 1.50 H (0.66-1.25) mg/dL Glucose 130 H (74-99) mg/dL POC Glucose (mg/dL) (70-110) mg/dL Calcium 7.9 L (8.4-10.2) mg/dL Magnesium 2.9 H (1.6-2.3) mg/dL Total Bilirubin 1.5 H (0.2-1.3) mg/dL AST (17-59) U/L Alkaline Phosphatase (38-126) U/L Total Protein 4.8 L (6.3-8.2) g/dL Albumin 3.2 L (3.5-5.0) g/dL Crossmatch 10/05/22 10/05/22 10/05/22 Range/Units 16:01 17:19 18:22 WBC (3.8-10.6) k/uL RBC (4.30-5.90) m/uL Hgb (13.0-17.5) gm/dL Hct (39.0-53.0) % RDW (11.5-15.5) % Plt Count (150-450) k/uL Neutrophils # (1.3-7.7) k/uL Lymphocytes # (1.0-4.8) k/uL INR (<1.2) ABG pH (7.35-7.45) ABG pO2 148 H (83-108) mmHg ABG HCO3 27 H (21-25) mmol/L ABG Total CO2 28 H (19-24) mmol/L ABG O2 Saturation 99.6 H (94-97) % Hemoglobin (13.0-17.5) gm/dL Potassium (3.5-5.1) mmol/L Chloride (98-107) mmol/L BUN (9-20) mg/dL Creatinine (0.66-1.25) mg/dL Glucose (74-99) mg/dL POC Glucose (mg/dL) 136 H 135 H (70-110) mg/dL Calcium (8.4-10.2) mg/dL Magnesium (1.6-2.3) mg/dL Total Bilirubin (0.2-1.3) mg/dL AST (17-59) U/L Alkaline Phosphatase (38-126) U/L Total Protein (6.3-8.2) g/dL Albumin (3.5-5.0) g/dL Crossmatch 10/05/22 10/05/22 10/05/22 Range/Units 18:23 18:25 19:07 WBC (3.8-10.6) k/uL RBC 2.89 L (4.30-5.90) m/uL Hgb 9.3 L D (13.0-17.5) gm/dL Hct 26.0 L (39.0-53.0) % RDW (11.5-15.5) % Plt Count 80 L (150-450) k/uL Neutrophils # 9.7 H (1.3-7.7) k/uL Lymphocytes # 0.3 L (1.0-4.8) k/uL INR (<1.2) ABG pH (7.35-7.45) ABG pO2 (83-108) mmHg ABG HCO3 (21-25) mmol/L ABG Total CO2 (19-24) mmol/L ABG O2 Saturation (94-97) % Hemoglobin (13.0-17.5) gm/dL Potassium (3.5-5.1) mmol/L Chloride (98-107) mmol/L BUN (9-20) mg/dL Creatinine (0.66-1.25) mg/dL Glucose (74-99) mg/dL POC Glucose (mg/dL) 212 H 185 H (70-110) mg/dL Calcium (8.4-10.2) mg/dL Magnesium (1.6-2.3) mg/dL Total Bilirubin (0.2-1.3) mg/dL AST (17-59) U/L Alkaline Phosphatase (38-126) U/L Total Protein (6.3-8.2) g/dL Albumin (3.5-5.0) g/dL Crossmatch 10/05/22 10/05/22 10/05/22 Range/Units 20:04 20:13 20:57 WBC (3.8-10.6) k/uL RBC 2.96 L (4.30-5.90) m/uL Hgb 9.2 L (13.0-17.5) gm/dL Hct 26.0 L (39.0-53.0) % RDW 15.7 H (11.5-15.5) % Plt Count 85 L (150-450) k/uL Neutrophils # 8.4 H (1.3-7.7) k/uL Lymphocytes # 0.2 L (1.0-4.8) k/uL INR (<1.2) ABG pH (7.35-7.45) ABG pO2 (83-108) mmHg ABG HCO3 (21-25) mmol/L ABG Total CO2 (19-24) mmol/L ABG O2 Saturation (94-97) % Hemoglobin (13.0-17.5) gm/dL Potassium (3.5-5.1) mmol/L Chloride (98-107) mmol/L BUN (9-20) mg/dL Creatinine (0.66-1.25) mg/dL Glucose (74-99) mg/dL POC Glucose (mg/dL) 170 H 148 H (70-110) mg/dL Calcium (8.4-10.2) mg/dL Magnesium (1.6-2.3) mg/dL Total Bilirubin (0.2-1.3) mg/dL AST (17-59) U/L Alkaline Phosphatase (38-126) U/L Total Protein (6.3-8.2) g/dL Albumin (3.5-5.0) g/dL Crossmatch 10/05/22 10/05/22 10/06/22 Range/Units 22:01 22:56 00:06 WBC (3.8-10.6) k/uL RBC (4.30-5.90) m/uL Hgb (13.0-17.5) gm/dL Hct (39.0-53.0) % RDW (11.5-15.5) % Plt Count (150-450) k/uL Neutrophils # (1.3-7.7) k/uL Lymphocytes # (1.0-4.8) k/uL INR (<1.2) ABG pH (7.35-7.45) ABG pO2 (83-108) mmHg ABG HCO3 (21-25) mmol/L ABG Total CO2 (19-24) mmol/L ABG O2 Saturation (94-97) % Hemoglobin (13.0-17.5) gm/dL Potassium (3.5-5.1) mmol/L Chloride (98-107) mmol/L BUN (9-20) mg/dL Creatinine (0.66-1.25) mg/dL Glucose (74-99) mg/dL POC Glucose (mg/dL) 134 H 135 H 140 H (70-110) mg/dL Calcium (8.4-10.2) mg/dL Magnesium (1.6-2.3) mg/dL Total Bilirubin (0.2-1.3) mg/dL AST (17-59) U/L Alkaline Phosphatase (38-126) U/L Total Protein (6.3-8.2) g/dL Albumin (3.5-5.0) g/dL Crossmatch 10/06/22 10/06/22 10/06/22 Range/Units 01:00 01:56 02:52 WBC (3.8-10.6) k/uL RBC (4.30-5.90) m/uL Hgb (13.0-17.5) gm/dL Hct (39.0-53.0) % RDW (11.5-15.5) % Plt Count (150-450) k/uL Neutrophils # (1.3-7.7) k/uL Lymphocytes # (1.0-4.8) k/uL INR (<1.2) ABG pH (7.35-7.45) ABG pO2 (83-108) mmHg ABG HCO3 (21-25) mmol/L ABG Total CO2 (19-24) mmol/L ABG O2 Saturation (94-97) % Hemoglobin (13.0-17.5) gm/dL Potassium (3.5-5.1) mmol/L Chloride (98-107) mmol/L BUN (9-20) mg/dL Creatinine (0.66-1.25) mg/dL Glucose (74-99) mg/dL POC Glucose (mg/dL) 139 H 142 H 135 H (70-110) mg/dL Calcium (8.4-10.2) mg/dL Magnesium (1.6-2.3) mg/dL Total Bilirubin (0.2-1.3) mg/dL AST (17-59) U/L Alkaline Phosphatase (38-126) U/L Total Protein (6.3-8.2) g/dL Albumin (3.5-5.0) g/dL Crossmatch 10/06/22 10/06/22 10/06/22 Range/Units 04:03 04:06 04:06 WBC (3.8-10.6) k/uL RBC 2.85 L (4.30-5.90) m/uL Hgb 9.1 L (13.0-17.5) gm/dL Hct 25.9 L (39.0-53.0) % RDW (11.5-15.5) % Plt Count 95 L (150-450) k/uL Neutrophils # 8.5 H (1.3-7.7) k/uL Lymphocytes # 0.4 L (1.0-4.8) k/uL INR (<1.2) ABG pH (7.35-7.45) ABG pO2 (83-108) mmHg ABG HCO3 (21-25) mmol/L ABG Total CO2 (19-24) mmol/L ABG O2 Saturation (94-97) % Hemoglobin (13.0-17.5) gm/dL Potassium (3.5-5.1) mmol/L Chloride (98-107) mmol/L BUN 27 H (9-20) mg/dL Creatinine 1.54 H (0.66-1.25) mg/dL Glucose 129 H (74-99) mg/dL POC Glucose (mg/dL) 138 H (70-110) mg/dL Calcium 7.6 L (8.4-10.2) mg/dL Magnesium 2.8 H (1.6-2.3) mg/dL Total Bilirubin (0.2-1.3) mg/dL AST 63 H (17-59) U/L Alkaline Phosphatase 27 L (38-126) U/L Total Protein 5.0 L (6.3-8.2) g/dL Albumin 3.4 L (3.5-5.0) g/dL Crossmatch 10/06/22 10/06/22 10/06/22 Range/Units 04:58 06:10 07:08 WBC (3.8-10.6) k/uL RBC (4.30-5.90) m/uL Hgb (13.0-17.5) gm/dL Hct (39.0-53.0) % RDW (11.5-15.5) % Plt Count (150-450) k/uL Neutrophils # (1.3-7.7) k/uL Lymphocytes # (1.0-4.8) k/uL INR (<1.2) ABG pH (7.35-7.45) ABG pO2 (83-108) mmHg ABG HCO3 (21-25) mmol/L ABG Total CO2 (19-24) mmol/L ABG O2 Saturation (94-97) % Hemoglobin (13.0-17.5) gm/dL Potassium (3.5-5.1) mmol/L Chloride (98-107) mmol/L BUN (9-20) mg/dL Creatinine (0.66-1.25) mg/dL Glucose (74-99) mg/dL POC Glucose (mg/dL) 135 H 118 H 133 H (70-110) mg/dL Calcium (8.4-10.2) mg/dL Magnesium (1.6-2.3) mg/dL Total Bilirubin (0.2-1.3) mg/dL AST (17-59) U/L Alkaline Phosphatase (38-126) U/L Total Protein (6.3-8.2) g/dL Albumin (3.5-5.0) g/dL Crossmatch 10/06/22 10/06/22 Range/Units 08:14 09:00 WBC (3.8-10.6) k/uL RBC (4.30-5.90) m/uL Hgb (13.0-17.5) gm/dL Hct (39.0-53.0) % RDW (11.5-15.5) % Plt Count (150-450) k/uL Neutrophils # (1.3-7.7) k/uL Lymphocytes # (1.0-4.8) k/uL INR (<1.2) ABG pH (7.35-7.45) ABG pO2 (83-108) mmHg ABG HCO3 (21-25) mmol/L ABG Total CO2 (19-24) mmol/L ABG O2 Saturation (94-97) % Hemoglobin (13.0-17.5) gm/dL Potassium (3.5-5.1) mmol/L Chloride (98-107) mmol/L BUN (9-20) mg/dL Creatinine (0.66-1.25) mg/dL Glucose (74-99) mg/dL POC Glucose (mg/dL) 123 H 123 H (70-110) mg/dL Calcium (8.4-10.2) mg/dL Magnesium (1.6-2.3) mg/dL Total Bilirubin (0.2-1.3) mg/dL AST (17-59) U/L Alkaline Phosphatase (38-126) U/L Total Protein (6.3-8.2) g/dL Albumin (3.5-5.0) g/dL Crossmatch Assessment and Plan Plan: CABG 2 with MIGUEL to LAD, left radial artery to diagonal, mitral valve repair with artificial cords to P2 2 and annuloplasty with a 30 mm AnnuloFlex band. The patient is currently postop day #1. The surgery was done for coronary artery disease and severe mitral regurgitation with a rupture of P2 chordae. The patient is hemodynamically stable. The patient is on no pressors. Adequate cardiac output and index. The patient remains paced AAI at the rate of 60. Adequate cardiac output and index. Hemodynamically stable. Postthoracotomy, currently intubated on a mechanical ventilator. The patient was extubated to nasal cannula. The currently the patient is on 2 L. Chest tu bes are in place. Output is noted. No evidence of any air leak. No evidence of any pneumothorax. History of El's disease Maintain a hydrocortisone outpatient basis Hypothyroidism Hypertension Osteoarthritis Hyperkalemia Chronic stage III kidney disease, creatinine is stable Insulin drip and the patient is currently running at 1 unit an hour. This will be transitioned to a slight scale coverage. Plan Incentive spirometer Oxygen 2 L/m nasal cannula Off Cardizem drip and nitroglycerin drip Stop insulin drip and put the patient has slight scale insulin coverage Monitor output from the chest tubes Chest x-ray was noted May remove the [place]-Sadi catheter Continue Stress dose hydrocortisone Cardiac rhythm is paced, AAI 60 and underlying rhythm is sinus bradycardia. Monitor blood sugar control We'll continue to follow
[2022-10-06] MEDS: IPRATROPIUM-ALBUTEROL 3 ML NEB INHALATION SCH ×4 (09:58→20:49)
[2022-10-06] MEDS: HYDROCORTISONE 20 MG TAB PO SCH (10:00)
--- NOTE | 2022-10-06 10:52 | P.CRDCN ---
History of Present Illness Consult date: 10/06/22 History of present illness: The patient is a 72-year-old male who follows in the office with Dr. Gaines. He is currently admitted after undergoing coronary artery bypass with MIGUEL to LAD and left radial to diagonal, along with mitral valve repair. Procedure was performed yesterday with Dr. Alvarado. The patient has been successfully extubated and weaned off of vasopressor support. The patient has had postoperative bradycardia requiring epicardial pacing. Cardizem drip has been weaned. DIAGNOSTICS: Chest x-ray shows scattered pleural parenchymal obesity. No pneumothorax Telemetry shows sinus rhythm as well as atrial pacing Labs: WBC 9.4, hemoglobin 9.1, hematocrit 25.9, platelet 95 sodium 137, potassium 4.6, BUN 27, creatinine 1.54, AST 63, ALT 16 REVIEW OF SYSTEMS: No fever or chills. No cough or expectoration. No diaphoresis. Patient denies dizziness, blurred vision, double vision. Patient denies any stomach discomfort. No nausea, vomiting. No hematochezia. No hematemesis. Denies any black stools or blood in his stools. Denies dysuria or hematuria. No muscle weakness or numbness. Positive for midsternal discomfort. Positive for headache. PHYSICAL EXAMINATION: This is a 72-year-old male in no apparent distress at the time of my examination. HEENT: Head is atraumatic, normocephalic. Pupils are equal, round. Neck is supple. There is no jugular venous distention. No carotid bruit is heard. CHEST EXAMINATION: Lungs are diminished to auscultation. No chest wall tenderness is noted on palpation or with deep breathing. HEART EXAMINATION: Heart regular rate and rhythm. S1, S2 heard. No murmurs, gallops or rub. Heart has I am place. ABDOMEN: Soft, nontender. Bowel sounds are heard. No organomegaly noted. EXTREMITIES: 2+ peripheral pulses with no evidence of peripheral edema and no calf tenderness noted. Left radial dressing in place. NEUROLOGIC EXAMINATION: Patient is awake, alert and oriented x3. FINAL ASSESSMENT AND PLAN: Multivessel coronary artery disease Status post CABG 2 Mitral regurgitation Status post mitral valve repair History of Braidwood's disease History hypertension History of hypothyroidism Chronic kidney disease, stage III PLAN: Continue supportive treatment Aggressive pulmonary hygiene Further recommendations to be based on clinical course I am dictating on behalf of Dr Armando Escamilla's history/physical and assessment/plan. Past Medical History Past Medical History: Cancer, Hypertension, Thyroid Disorder Additional Past Medical History / Comment(s): addisons disease, low testosterone, family hx of [place], recent u/s showed leaky valve. hx of asthma as a child. enlarged spleen (Gurvinder). borderline kidney issues. sees Mark, hx. skin cancer, chronic steroid use for El's History of Any Multi-Drug Resistant Organisms: None Reported Past Surgical History: Heart Catheterization, Hernia Repair, Joint Replacement, Orthopedic Surgery, Tonsillectomy Additional Past Surgical History / Comment(s): LEFT ANKLE FX WITHS SURGERY X3. inguinal hernia repair. rt knee replaced, colonoscopy Past Anesthesia/Blood Transfusion Reactions: No Reported Reaction Smoking Status: Never smoker - Past Family History Mother Family Medical History: No Reported History family Family Medical History: Coronary Artery Disease (CAD) Medications and Allergies Home Medications Medication Instructions Recorded Confirmed Type Cholecalciferol [Vitamin D3 (25 2,000 unit PO DAILY 05/31/17 10/05/22 History Mcg = 1000 Iu)] Fludrocortisone [Florinef] 0.1 mg PO DAILY 05/31/17 10/05/22 History Levothyroxine Sodium [Synthroid] 75 mcg PO DAILY 05/31/17 10/05/22 History Hydrocortisone [Cortef] 10 mg PO W/SUPPER #0 06/08/17 10/05/22 Rx Hydrocortisone [Cortef] 20 mg PO QAM #0 06/08/17 10/05/22 Rx Losartan Potassium [Cozaar] 25 mg PO DAILY 09/19/22 10/05/22 History Unk Biote Testosterone Pellet 1 applic SQ Q150D 09/19/22 10/05/22 History Unk Saw [place] 1,740 mg PO DAILY 09/19/22 10/05/22 History Allergies Allergy/AdvReac Type Severity Reaction Status Date / Time Penicillins AdvReac Unknown Unknown Verified 10/05/22 05:54 aspirin AdvReac INSTRUCTED Verified 10/05/22 05:54 NOT TO TAKE DUE TO ADDISONS. Physical Exam Vitals: Vital Signs Temp Pulse Resp BP Pulse Ox FiO2 10/06/22 06:00 80 18 99 10/06/22 05:30 80 24 104/60 100 10/06/22 05:00 80 18 103/63 100 10/06/22 04:30 80 13 99/61 100 10/06/22 04:00 98.6 F 80 18 99/61 100 10/06/22 03:30 80 20 93/56 100 10/06/22 03:00 80 17 93/57 99 10/06/22 02:30 79 15 92/58 99 10/06/22 02:00 80 16 92/56 99 10/06/22 01:30 80 13 90/58 98 10/06/22 01:00 80 17 91/57 100 10/06/22 00:30 80 20 93/60 98 10/06/22 00:00 98.6 F 80 18 93/57 99 10/05/22 23:30 80 22 94/57 100 10/05/22 23:00 80 18 94/57 99 10/05/22 22:32 80 15 82/50 99 10/05/22 22:00 80 13 86/55 99 10/05/22 21:33 80 16 86/55 100 10/05/22 21:00 80 14 93/57 99 10/05/22 20:30 80 13 87/57 100 10/05/22 20:29 80 10/05/22 20:16 80 10/05/22 20:00 99.1 F 80 18 95/56 100 10/05/22 19:30 80 16 95/56 100 10/05/22 19:00 80 17 100 10/05/22 18:30 80 16 100 50 10/05/22 18:00 99.1 F 80 24 100 50 10/05/22 17:50 50 10/05/22 17:30 80 100 50 10/05/22 17:00 99.7 F H 80 38 H 100 50 10/05/22 16:30 80 14 100 50 10/05/22 16:15 79 12 100 100 10/05/22 16:00 98.8 F 79 12 100 100 10/05/22 15:48 80 10/05/22 15:45 80 12 100 100 10/05/22 15:42 50 10/05/22 15:30 80 12 100 100 10/05/22 15:15 88 12 100 100 10/05/22 15:00 97.7 F 89 12 100 100 10/05/22 14:58 100 Intake and Output 10/05/22 10/06/22 10/06/22 22:59 06:59 14:59 Intake Total 1393.516 773.064 227.976 Output Total 1394 576 95 Balance -0.484 197.064 132.976 Intake: IV 362 712 227 0.9 PRESSURE BAG 72 72 27 ACETAMINOPHEN IV (For NPO 100 ) 1,000 mg In Empty Bag 1 bag @ 400 mls/hr IVPB Q6HR [facility] Rx#:[id number] CO/CI 140 90 50 Lactated Ringers 1,000 ml 150 400 150 @ 20 mls/hr IV .Q24H [facility] Rx#:[id number] ceFAZolin 2 gm In Sodium 50 Chloride 0.9% 50 ml @ 100 mls/hr IVPB Q8HR [facility] Rx# :[id number] Intake, IV Titration 1031.516 61.064 0.976 Amount Albumin Human 5% 250 ml 750 In Empty Bag 1 bag @ 250 mls/hr IVPB Q1HR PRN Rx#: [id number] Dexmedetomidine/0.9% NaCl 3.266 (Pmx) 400 mcg In Empty Bag 1 bag @ Titrate IV . Q0M [facility] Rx#:[id number] Diltiazem 125 mg In 50.333 Sodium Chloride 0.9% 100 ml @ 5 MG/HR 5 mls/hr IV .Q24H [facility] Rx#:[id number] Insulin Regular 100 unit 13.181 10.731 0.976 In Sodium Chloride 0.9% 100 ml @ Per Protocol IV .Q0M [facility] Rx#:[id number] Lactated Ringers 1,000 ml 250 @ 20 mls/hr IV .Q24H [facility] Rx#:[id number] propofoL 1,000 mg In 15.069 Empty Bag 1 bag @ Titrate IV .Q0M [facility] Rx#: [id number] Output: Chest Tube Drainage 464 316 20 Chest Tube Mediastinal 350 200 20 Pleural Catheter Left 114 116 0 Drainage 20 Left Wrist 20 Urine 910 260 75 Other: Voiding Method Indwelling Catheter Indwelling Catheter Indwelling Catheter Weight 83 kg ABP, PAP, CO, CI - Last 8 Hours Arterial Blood Pressure 103/51 Arterial Blood Pressure 121/60 Arterial Blood Pressure 104/53 Arterial Blood Pressure 104/48 Arterial Blood Pressure 112/50 Arterial Blood Pressure 115/57 Arterial Blood Pressure 99/44 Pulmonary Artery Pressure 32/12 Pulmonary Artery Pressure 35/24 Pulmonary Artery Pressure 27/14 Pulmonary Artery Pressure 24/13 Pulmonary Artery Pressure 26/14 Pulmonary Artery Pressure 26/15 Pulmonary Artery Pressure 23/13 Cardiac Output 5.5 Cardiac Output 5.5 Cardiac Output 5.5 Cardiac Output 5.5 Cardiac Output 5.5 Cardiac Index 2.6 Cardiac Index 2.6 Cardiac Index 2.6 Cardiac Index 2.6 Cardiac Index 2.6 Results 10/06/22 04:06 10/06/22 04:06 Cardiac Enzymes 10/05/22 10/05/22 10/06/22 Range/Units 11:00 15:59 04:06 AST 54 57 63 H (17-59) U/L Coagulation 10/05/22 10/05/22 Range/Units 11:00 15:59 PT 11.9 11.4 (9.0-12.0) sec APTT 26.6 27.4 (22.0-30.0) sec CBC 10/05/22 10/05/22 10/05/22 Range/Units 11:00 15:59 18:25 WBC 9.2 13.1 H 10.5 (3.8-10.6) k/uL RBC 3.34 L 3.60 L 2.89 L (4.30-5.90) m/uL Hgb 10.3 L 11.5 L 9.3 L D (13.0-17.5) gm/dL Hct 29.2 L 32.4 L 26.0 L (39.0-53.0) % Plt Count 87 L 108 L 80 L (150-450) k/uL 10/05/22 10/06/22 Range/Units 20:13 04:06 WBC 8.9 9.4 (3.8-10.6) k/uL RBC 2.96 L 2.85 L (4.30-5.90) m/uL Hgb 9.2 L 9.1 L (13.0-17.5) gm/dL Hct 26.0 L 25.9 L (39.0-53.0) % Plt Count 85 L 95 L (150-450) k/uL Comprehensive Metabolic Panel 10/05/22 10/05/22 10/05/22 Range/Units 11:00 15:59 20:13 Sodium 137 137 (137-145) mmol/L Potassium 4.8 5.7 H 4.6 (3.5-5.1) mmol/L Chloride 109 H 107 (98-107) mmol/L Carbon Dioxide 22 24 (22-30) mmol/L BUN 22 H 21 H (9-20) mg/dL Creatinine 1.38 H 1.50 H (0.66-1.25) mg/dL Glucose 115 H 130 H (74-99) mg/dL Calcium 7.7 L 7.9 L (8.4-10.2) mg/dL AST 54 57 (17-59) U/L ALT 16 18 (4-49) U/L Alkaline Phosphatase 34 L 38 (38-126) U/L Total Protein 4.3 L 4.8 L (6.3-8.2) g/dL Albumin 2.8 L 3.2 L (3.5-5.0) g/dL 10/06/22 Range/Units 04:06 Sodium 137 (137-145) mmol/L Potassium 4.6 (3.5-5.1) mmol/L Chloride 105 (98-107) mmol/L Carbon Dioxide 25 (22-30) mmol/L BUN 27 H (9-20) mg/dL Creatinine 1.54 H (0.66-1.25) mg/dL Glucose 129 H (74-99) mg/dL Calcium 7.6 L (8.4-10.2) mg/dL AST 63 H (17-59) U/L ALT 16 (4-49) U/L Alkaline Phosphatase 27 L (38-126) U/L Total Protein 5.0 L (6.3-8.2) g/dL Albumin 3.4 L (3.5-5.0) g/dL Current Medications Generic Name Dose Route Start Last Admin Trade Name Freq PRN Reason Stop Dose Admin Hydrocodone Bitart/Acetaminophen 1 each 10/06/22 06:00 Hydrocodone/Apap 5-325mg 1 Each Tab PO Q4HR PRN Moderate Pain (Scale 4 to 6) Hydrocodone Bitart/Acetaminophen 1 each 10/06/22 06:00 10/06/22 10:09 Hydrocodone/Apap 10-325mg 1 Each Tab PO 1 each Q4HR PRN Administration Severe Pain (Scale 7 to 10) Albuterol/Ipratropium 3 ml 10/05/22 15:00 Ipratropium-Albuterol 3 Ml Neb INHALATION RT-Q2H PRN Shortness Of Breath Or Wheezing Albuterol/Ipratropium 3 ml 10/05/22 20:00 10/06/22 09:58 Ipratropium-Albuterol 3 Ml Neb INHALATION Not Given RT-QID [facility] Atorvastatin Calcium 40 mg 10/06/22 09:00 10/06/22 08:23 Atorvastatin 40 Mg Tab PO 40 mg DAILY [facility] Administration Benzocaine/Menthol 1 each 10/05/22 15:00 Benzocaine/Menthol Lozeng 1 Each Lozenge MUCOUS MEM Q2H PRN Sore Throat Bisacodyl 10 mg 10/06/22 09:00 Bisacodyl 10 Mg Supp RECTAL DAILY PRN Constipation Cholecalciferol 50 mcg 10/06/22 09:00 10/06/22 08:23 Cholecalciferol 25 Mcg (1000 Iu) Tablet PO 50 mcg DAILY [facility]YA Administration Clopidogrel Bisulfate 75 mg 10/06/22 09:00 10/06/22 08:23 Clopidogrel 75 Mg Tab PO 75 mg DAILY AL[facility]YA Administration Dextrose/Water 25 ml 10/05/22 15:00 Dextrose 50% Syringe 50 Ml IVP PER PROTOCOL PRN Hypoglycemia Protocol Dextrose/Water 50 ml 10/05/22 15:00 Dextrose 50% Syringe 50 Ml IVP PER PROTOCOL PRN Hypoglycemia Protocol Fludrocortisone Acetate 0.1 mg 10/06/22 09:00 10/06/22 08:23 Fludrocortisone 0.1 Mg Tab PO 0.1 mg DAILY [facility] Administration Heparin Sodium (Porcine) 5,000 unit 10/05/22 16:00 10/06/22 08:01 Heparin Sodium,Porcine/Pf 5,000 Unit/0.5 Ml Syringe SQ Not Given Q8HR [facility] Hydralazine HCl 10 mg 10/05/22 15:00 Hydralazine Hcl 20 Mg/Ml 1 Ml Vial IVP Q1H PRN Blood Pressure - High Hydrocortisone 40 mg 10/06/22 09:00 10/06/22 10:00 Hydrocortisone 20 Mg Tab PO Not Given QAM [facility] Hydrocortisone 20 mg 10/06/22 17:30 Hydrocortisone 10 Mg Tab PO W/SUPPER AL[facility]YA Amiodarone HCl 150 mg/ 103 mls @ 618 mls/hr 10/05/22 15:00 Dextrose/Water IV .Q10M PRN A.FIB/FLUTTER Protocol Amiodarone HCl 360 mg/ 207.2 mls @ 34.533 mls/hr 10/05/22 15:00 Dextrose/Water IV .Q6H PRN A.FIB/FLUTTER Protocol 1 MG/MIN Amiodarone HCl 450 mg/ 250 mls @ 16.667 mls/hr 10/05/22 15:00 Dextrose/Water IV .Q15H PRN A.FIB/FLUTTER Protocol 0.5 MG/MIN Albumin Human 250 ml/ IV 250 mls @ 250 mls/hr 10/05/22 15:00 10/06/22 06:42 Solution IVPB 10/07/22 15:01 250 mls/hr Q1HR PRN Administration For Volume Protocol Lactated Ringer's 1,000 mls @ 20 mls/hr 10/05/22 15:00 10/05/22 15:31 Lactated Ringers IV 50 mls/hr .Q24H AL[facility] Administration Dexmedetomidine HCl 400 mcg/ 100 mls @ 0 mls/hr 10/05/22 15:00 10/05/22 17:45 IV Solution IV 10/06/22 15:01 0 mcg/kg/hr .Q0M [facility] 0 mls/hr Titration Protocol Titrate Insulin Human Regular 100 unit 101 mls @ 0 mls/hr 10/05/22 15:00 10/06/22 07:10 / Sodium Chloride IV 1.5 unit/hr .Q0M [facility] 1.515 mls/hr Titration Protocol Per Protocol Levothyroxine Sodium 75 mcg 10/06/22 06:30 10/06/22 06:19 Levothyroxine 75 Mcg Tab PO 75 mcg 0630 AL[facility]YA Administration Magnesium Hydroxide 2,400 mg 10/06/22 09:00 Magnesium Hydroxide 2,400 Mg/30 Ml Cup PO BID PRN Constipation Metoclopramide HCl 10 mg 10/05/22 15:00 10/06/22 05:47 Metoclopramide 5 Mg/Ml 2 Ml Vial IVP 10 mg Q4H PRN Administration Nausea And Vomiting Miscellaneous Information 1 each 10/05/22 15:00 Potassium Replacement Protocol 1 Each Misc MISCELLANE DAILY PRN Per Protocol Protocol Miscellaneous Information 1 each 10/05/22 15:00 Magnesium Replacement Protocol 1 Each Misc MISCELLANE DAILY PRN Per Protocol Protocol Ondansetron HCl 4 mg 10/05/22 15:00 10/06/22 08:16 Ondansetron 4 Mg/2 Ml Vial IVP 4 mg Q6HR PRN Administration Nausea And Vomiting Pantoprazole Sodium 40 mg 10/06/22 09:00 10/06/22 08:16 Pantoprazole 40 Mg/10 Ml Vial IVP 40 mg DAILY AL[facility]YA Administration Senna/Docusate Sodium 2 each 10/06/22 21:00 Sennosides-Docusate Sodium 1 Each Tab PO HS [facility]IYA Sodium Chloride 10 ml 10/05/22 21:00 10/06/22 08:23 Sodium Chloride 0.9% Flush 10 Ml Syringe IV Not Given BID [facility] Intake and Output 10/05/22 10/06/22 10/06/22 22:59 06:59 14:59 Intake Total 1393.516 773.064 227.976 Output Total 1394 576 95 Balance -0.484 197.064 132.976 Intake: IV 362 712 227 0.9 PRESSURE BAG 72 72 27 ACETAMINOPHEN IV (For NPO 100 ) 1,000 mg In Empty Bag 1 bag @ 400 mls/hr IVPB Q6HR [facility] Rx#:[id number] CO/CI 140 90 50 Lactated Ringers 1,000 ml 150 400 150 @ 20 mls/hr IV .Q24H [facility] Rx#:[id number] ceFAZolin 2 gm In Sodium 50 Chloride 0.9% 50 ml @ 100 mls/hr IVPB Q8HR [facility] Rx# :[id number] Intake, IV Titration 1031.516 61.064 0.976 Amount Albumin Human 5% 250 ml 750 In Empty Bag 1 bag @ 250 mls/hr IVPB Q1HR PRN Rx#: [id number] Dexmedetomidine/0.9% NaCl 3.266 (Pmx) 400 mcg In Empty Bag 1 bag @ Titrate IV . Q0M [facility] Rx#:[id number] Diltiazem 125 mg In 50.333 Sodium Chloride 0.9% 100 ml @ 5 MG/HR 5 mls/hr IV .Q24H [facility] Rx#:[id number] Insulin Regular 100 unit 13.181 10.731 0.976 In Sodium Chloride 0.9% 100 ml @ Per Protocol IV .Q0M [facility] Rx#:[id number] Lactated Ringers 1,000 ml 250 @ 20 mls/hr IV .Q24H [facility] Rx#:[id number] propofoL 1,000 mg In 15.069 Empty Bag 1 bag @ Titrate IV .Q0M [facility] Rx#: [id number] Output: Chest Tube Drainage 464 316 20 Chest Tube Mediastinal 350 200 20 Pleural Catheter Left 114 116 0 Drainage 20 Left Wrist 20 Urine 910 260 75 Other: Voiding Method Indwelling Catheter Indwelling Catheter Indwelling Catheter Weight 83 kg 10/06/22 04:06 10/06/22 04:06
[2022-10-06 11:00] LABS: Glucose,Whole Blood 115 mg/dL (70-110)
[2022-10-06 12:15] LABS: Glucose,Whole Blood 113 mg/dL (70-110)
[2022-10-06] MEDS: INSULIN ASPART (NovoLOG) 100 UNIT/ML VIAL SQ SCH ×3 (12:21→20:09)
[2022-10-06 12:54] LABS: Glucose,Whole Blood 130 mg/dL (70-110)
[2022-10-06 16:22] LABS: Glucose,Whole Blood 120 mg/dL (70-110)
[2022-10-06] MEDS ORDERED: HYDROCORTISONE 10 MG TAB PO SCH (17:30)
[2022-10-06] MEDS: LACTATED RINGERS 1,000 ML IV SCH (18:14)
[2022-10-06] MEDS: HYDROCORTISONE 10 MG TAB PO SCH (18:14)
[2022-10-06] MEDS: HYDROcodone/APAP 5-325MG 1 EACH TAB PO PRN ×2 (19:28→23:41)
[2022-10-06 20:03] LABS: Glucose,Whole Blood 138 mg/dL (70-110)
[2022-10-06] MEDS: SENNOSIDES-DOCUSATE SODIUM 1 EACH TAB PO SCH (20:10)
[2022-10-07] MEDS: HYDROcodone/APAP 5-325MG 1 EACH TAB PO PRN ×2 (03:42→08:24)
[2022-10-07 04:23] LABS: Basophils % (A) 0 %; Eosinophils % (A) 0 %; HCT 26.7 % (39.0-53.0); HGB 9.4 gm/dL (13.0-17.5); Lymphocytes # (A) 1.3 k/uL (1.0-4.8); Lymphocytes % (A) 10 %; MCH 32.3 pg (25.0-35.0); MCHC 35.2 g/dL (31.0-37.0); MCV 91.8 fL (80.0-100.0); Mean Platelet Volume 8.6; Monocytes # (A) 0.7 k/uL (0-1.0); Monocytes % (A) 5 %; Neutrophils # (A) 10.8 k/uL (1.3-7.7); Neutrophils % (A) 84 %; Platelet Count 103 k/uL (150-450); Poikilocytosis Slight; RBC 2.91 m/uL (4.30-5.90); RDW 15.4 % (11.5-15.5); WBC 12.9 k/uL (3.8-10.6)
[2022-10-07 04:31] LABS: Ionized Calcium 4.6 mg/dL (4.5-5.3)
[2022-10-07 04:50] LABS: ALT 18 U/L (4-49); AST 64 U/L (17-59); African American GFR (CKD) 45 (>60 ml/min/1.73 sqM); Albumin 3.5 g/dL (3.5-5.0); Alkaline Phosphatase 34 U/L (38-126); Anion Gap 6 mmol/L; Blood Urea Nitrogen 31 mg/dL (9-20); Carbon Dioxide 26 mmol/L (22-30); Chloride 102 mmol/L (98-107); Glucose 117 mg/dL (74-99); Non-African American GFR(CKD) 39 (>60 ml/min/1.73 sqM); Potassium 4.2 mmol/L (3.5-5.1); Sodium 134 mmol/L (137-145); Total Bilirubin 0.8 mg/dL (0.2-1.3); Total Protein 5.2 g/dL (6.3-8.2)
[2022-10-07 06:33] LABS: Glucose,Whole Blood 112 mg/dL (70-110)
[2022-10-07] MEDS: PANTOPRAZOLE 40 MG TABLET PO SCH (06:43)
[2022-10-07] MEDS: INSULIN ASPART (NovoLOG) 100 UNIT/ML VIAL SQ SCH ×4 (06:43→20:14)
[2022-10-07] MEDS: LEVOTHYROXINE 75 MCG TAB PO SCH (06:43)
--- NOTE | 2022-10-07 07:31 | XR ---
EXAMINATION TYPE: XR chest 1V portable DATE OF EXAM: 10/07/2022 COMPARISON: 10/06/2022 HISTORY: Post Operative Cardiac Surgery FINDINGS: [place]-Sadi catheter has been removed with right IJ sheath in place. Left-sided chest tube and mediasti nal drains are unchanged. No evidence for sizable pneumothorax. Sternotomy wires mediastinal clips no joanne. Pleural-parenchymal density left perihilar region is unchanged. Stable appearance of the cardio-mediastinal structures at this time. IMPRESSION: 1. Overall stable appearance of the chest. Indwelling tubes and catheters as discussed above.
[2022-10-07] MEDS: IPRATROPIUM-ALBUTEROL 3 ML NEB INHALATION SCH ×4 (08:01→19:45)
[2022-10-07] MEDS: HEPARIN SODIUM,PORCINE/PF 5,000 UNIT/0.5 ML SYRINGE SQ SCH ×3 (08:20→23:47)
[2022-10-07] MEDS: CLOPIDOGREL 75 MG TAB PO SCH (08:24)
[2022-10-07] MEDS: CHOLECALCIFEROL 25 MCG (1000 IU) TABLET PO SCH (08:24)
[2022-10-07] MEDS: FLUDROCORTISONE 0.1 MG TAB PO SCH (08:24)
[2022-10-07] MEDS: HYDROCORTISONE 20 MG TAB PO SCH (08:24)
[2022-10-07] MEDS: ATORVASTATIN 40 MG TAB PO SCH (08:24)
--- NOTE | 2022-10-07 08:53 | P.PN ---
Subjective Progress Note Date: 10/07/22 Principal diagnosis: Coronary artery disease, severe mitral valve regurgitation. 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 POD #2 CABG 2 with MIGUEL to LAD, left radial artery to diagonal, mitral valve repair with artificial cords to P2 2 and annuloplasty with a 30 mm AnnuloFlex band. Ligation of the left atrial appendage with a 2 layer running closure of 3-0 Prolene. Endovascular harvest of the left radial artery. LASHAE by anesthesia. Postoperative acute blood loss anemia, expected given cardiopulmonary bypass and hemodilution. The patient was seen and examined in follow-up today 10/07/2022 at his bedside in the intensive care unit. Currently he is sitting up to the bedside chair, is awake, alert, oriented 3 and is in no acute apparent distress. Currently denies any complaints of shortness of breath or pain at this time. Patient is complaining of feeling extremely tired today. Oxygen saturations are 96% on room air and he is achieving 8266-2373 mL on his incentive spirometry with encouragement. Bedside telemetry showing normal sinus rhythm heart rate 74 BPM. Atrial and ventricular epicardial pacemaker wires remain in place and connected to a backup bedside pacemaker generator on an AAI of 60 BPM. Mediastinal and left pleural chest tubes remain in place to low continuous wall suction -20 cm H2O. No air leak is present. Draining thin serosanguineous drainage. Mediastinal chest tubes drained 70 mL output in the last 8 hours and 320 mL output in the last 24 hours. Left pleural chest tube drained 100 mL output in the last 8 hours and 200 mL output in the last 24 hours. Chest x-ray was reviewed. Laboratory results reviewed. Patient remains afebrile the last 24 hours. Right IJ cordis remains in place with continuous CVP monitoring, current CVP pressures 13 mmHg. Objective - Vital Signs Vital signs: Vital Signs Temp 98.1 F 10/07/22 04:00 Pulse 72 10/07/22 07:00 Resp 15 10/07/22 07:00 BP 109/55 10/07/22 07:00 Pulse Ox 96 10/07/22 07:00 FiO2 50 10/05/22 18:30 Intake & Output 10/06/22 10/07/22 10/07/22 18:59 06:59 18:59 Intake Total 680.976 432 36 Output Total 640 595 25 Balance 40.976 -163 11 Weight 83 kg 93.4 kg Intake: IV 680 432 36 0.9 PRESSURE BAG 90 72 6 CO/CI 50 Lactated Ringers 1,000 ml 540 360 30 @ 20 mls/hr IV .Q24H ALIYA Rx#:[id number] Intake, IV Titration 0.976 Amount Insulin Regular 100 unit 0.976 In Sodium Chloride 0.9% 100 ml @ Per Protocol IV .Q0M ALIYA Rx#:[id number] Output: Chest Tube Drainage 300 210 0 Chest Tube Mediastinal 220 100 0 Pleural Catheter Left 80 110 0 Urine 340 385 25 Other: Voiding Method Indwelling Catheter Indwelling Catheter ABP, PAP, CO, CI - Last Documented Arterial Blood Pressure 97/47 Pulmonary Artery Pressure 23/10 Cardiac Output 5.5 Cardiac Index 2.6 - Exam CONSTITUTIONAL: Sitting up to the bedside chair in the intensive care unit, appears comfortable, cooperative, no apparent acute distress. HEENT: Neck is supple, no JVD, no lymphadenopathy. Right IJ Cordis in place and functioning. RESPIRATORY: Lungs sounds essentially clear throughout, diminished to his bilateral bases. Respirations are symmetrical and nonlabored. Currently on room air with oxygen saturations 96%. Able to achieve 2687-5955 mL on his incentive spirometry. Strong cough. CARDIOVASCULAR: Regular rhythm and rate. S1 and S2 present, negative for S3, gallop or murmur. Sternum is stable. Palpable peripheral pulses bilaterally, No calf pain or tenderness noted. Heart hugger in place with patient demonstrating appropriate use. Knee-high NAVA hose and sequential compression devices in place to his bilateral lower extremities. GASTROINTESTINAL: Abdomen soft, nontender, nondistended. Hypoactive bowel sounds present 4 quadrants. Tolerating clear liquid diet. Passing flatus. No guarding or rigidity. GENITOURINARY: Hazel present draining clear, yellow urine. Urine output 255 mL in the last 8 hours. INTEGUMENTARY: Skin is warm and dry with no evidence of clubbing or cyanosis. Midline sternal incision clean dry and well approximated, covered with dry intact dressing. Left arm radial artery harvest sites clean, dry and approximated. No drainage or redness is present. NEUROLOGIC: Cranial nerves II through XII intact. No focal deficits. MUSKULOSKELETAL: Able to move all extremities, strength equal bilaterally, generalized weakness. PSYCHIATRIC: Alert and oriented to person place and time, appropriate affect, intact judgment and insight. INVASIVE LINES AND TUBES: Mediastinal/left pleural chest tubes present and connected to low continuous wall suction, no air leaks present. Mediastinal tubes with 70 mL of thin serosanguineous drainage overnight, 320 mL output in the last 24 hours. Left pleural chest tube with 100 mL of thin serosanguineous drainage overnight, 200 mL output in the last 24 hours. Atrial and ventricular epicardial pacemaker wires present, connected to back up bedside pacemaker generator, AAI mode of 60 BPM. Right internal jugular Cordis, right radial arterial line present. Current CVP 13 mmHg. - Allied health notes Allied health notes reviewed: nursing - Labs CBC & Chem 7: 10/07/22 03:58 10/07/22 03:58 Labs: Abnormal Lab Results - Last 24 Hours (Table) 10/06/22 10/06/22 10/06/22 Range/Units 08:14 09:00 10:58 WBC (3.8-10.6) k/uL RBC (4.30-5.90) m/uL Hgb (13.0-17.5) gm/dL Hct (39.0-53.0) % Plt Count (150-450) k/uL Neutrophils # (1.3-7.7) k/uL Sodium (137-145) mmol/L BUN (9-20) mg/dL Creatinine (0.66-1.25) mg/dL Glucose (74-99) mg/dL POC Glucose (mg/dL) 123 H 123 H 115 H (70-110) mg/dL Calcium (8.4-10.2) mg/dL AST (17-59) U/L Alkaline Phosphatase (38-126) U/L Total Protein (6.3-8.2) g/dL 10/06/22 10/06/22 10/06/22 Range/Units 12:13 12:53 16:21 WBC (3.8-10.6) k/uL RBC (4.30-5.90) m/uL Hgb (13.0-17.5) gm/dL Hct (39.0-53.0) % Plt Count (150-450) k/uL Neutrophils # (1.3-7.7) k/uL Sodium (137-145) mmol/L BUN (9-20) mg/dL Creatinine (0.66-1.25) mg/dL Glucose (74-99) mg/dL POC Glucose (mg/dL) 113 H 130 H 120 H (70-110) mg/dL Calcium (8.4-10.2) mg/dL AST (17-59) U/L Alkaline Phosphatase (38-126) U/L Total Protein (6.3-8.2) g/dL 10/06/22 10/07/22 10/07/22 Range/Units 20:01 03:58 03:58 WBC 12.9 H (3.8-10.6) k/uL RBC 2.91 L (4.30-5.90) m/uL Hgb 9.4 L (13.0-17.5) gm/dL Hct 26.7 L (39.0-53.0) % Plt Count 103 L (150-450) k/uL Neutrophils # 10.8 H (1.3-7.7) k/uL Sodium 134 L (137-145) mmol/L BUN 31 H (9-20) mg/dL Creatinine 1.74 H (0.66-1.25) mg/dL Glucose 117 H (74-99) mg/dL POC Glucose (mg/dL) 138 H (70-110) mg/dL Calcium 8.0 L (8.4-10.2) mg/dL AST 64 H (17-59) U/L Alkaline Phosphatase 34 L (38-126) U/L Total Protein 5.2 L (6.3-8.2) g/dL 10/07/22 Range/Units 06:31 WBC (3.8-10.6) k/uL RBC (4.30-5.90) m/uL Hgb (13.0-17.5) gm/dL Hct (39.0-53.0) % Plt Count (150-450) k/uL Neutrophils # (1.3-7.7) k/uL Sodium (137-145) mmol/L BUN (9-20) mg/dL Creatinine (0.66-1.25) mg/dL Glucose (74-99) mg/dL POC Glucose (mg/dL) 112 H (70-110) mg/dL Calcium (8.4-10.2) mg/dL AST (17-59) U/L Alkaline Phosphatase (38-126) U/L Total Protein (6.3-8.2) g/dL - Imaging and Cardiology Chest x-ray: report reviewed, image reviewed Assessment and Plan Assessment: Coronary artery disease, status post 2 vessel coronary artery bypass grafting Severe mitral valve regurgitation, status post mitral valve repair History of [place]'s disease, currently taking hydrocortisone 40 mg in the morning and 20 mg in the afternoon Hypertension Hyperlipidemia Chronic kidney disease, baseline creatinine 1.4-1.8 History of osteoarthritis History of skin cancer Lifetime nonsmoker Postoperative acute blood loss anemia, expected given cardiopulmonary bypass and hemodilution Plan: Continue to maximize medical therapy with statin and Plavix. Will start metoprolol tartrate 12.5 mg by mouth twice a day with hold parameters. Continue to hold aspirin as it is a contraindication as the patient has a documented ALLERGY. Encourage incentive spirometry use 10 times every hour while awake. Bronchodilators per pulmonology. Increase activity, ambulate as tolerated. PT/OT/cardiac rehab following. Will monitor daily labs and chest x-rays. Electrolyte replacement protocol. GI/DVT prophylaxis. Pain control with current medication regimen. Insulin management per internal medicine service. Patient is not a diabetic with preoperative hemoglobin A1c 4.9%, needs tight blood sugar control to prevent infection and promote healing, patient on chronic steroids. Discontinue right a day Cordis. Discontinue mediastinal chest tubes keep left pleural chest tubes for another 24 hours, monitor output. Remove Hazel catheter, continue to monitor strict in accurate I's and O's. Bladder scan every 6 hours and when necessary postvoid residual, if greater than 300 mL of postvoid residual May straight cath. Daily weights. Appropriate home meds resumed. Continue hydrocortisone 40 mg by mouth in the morning and 20 mg by mouth in the afternoon per Dr. Eason's recommendations. Place backup pacemaker generator on an AAI of 60. Lasix 20 mg IV Q8 hours. More recommendations to follow based on patient's clinical course. Time with Patient: Greater than 30
[2022-10-07] MEDS ORDERED: METOPROLOL TARTRATE 12.5 MG TAB PO SCH (09:00)
--- NOTE | 2022-10-07 09:12 | P.PN ---
Subjective Progress Note Date: 10/07/22 72-year-old male patient underwent two-vessel bypass surgery and mitral valve repair. The patient was having exertional dyspnea and fatigue. He was referred to cardiology and further investigation revealed that the patient had significant mitral regurgitation. He underwent a cardiac catheterization and LASHAE. Cardiac catheterization showed proximal LAD stenosis in the order of 90%, and was also involving the first diagonal branch. There was also a normal circumflex and RCA. 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 Aortic valve was within normal limits. Based on that, the patient was taken to surgery. The patient underwent two-vessel bypass surgery using a radial and MIGUEL to LAD. The patient also had mitral valve repair. Currently is on assist- control mode of mechanical ventilation. His well sedated on propofol which is running at 10 mcg/kg/m. He is on a rate of 12, tidal volume of 550, FiO2 of 50% and a PEEP of 5. Chest x-ray showed adequate expansion of both lungs. The patient has no evidence of any pneumothorax. The patient has a left pleural and 2 mediastinal chest tubes. The patient is hemodynamically stable at this point in time. He is on a Cardizem drip at 5 mg an hour. He is also on a nitroglycerin drip. Output from the chest tubes have been in the order of less than 100 mL. No evidence of any air leak. The blood gas showed a pH of 7.33 with a pCO2 of 44 and pO2 more than 400. FiO2 was brought down to 50%. BUN is 21 with a creatinine 1.5 and a potassium level of 5.7. The [place] 15.4 with a hemoglobin of 11.5. Current cardiac output is 4.9 with an index of 2.3. PA pressures of 30/19. On today's evaluation of 10/07/2023, the patient remains extubated. The patient was weaned off the mechanical ventilator and the patient was explained about any major difficulties. Chest x-ray from today shows the Redford-Sadi being in a good location. The patient left pleural and 2 mediastinal chest tubes. The gastric bubble is seen is quite large. No other acute abnormalities seen. No evidence of any air leak and the chest tubes. No evidence of any pneumothorax. The patient is currently on oxygen and is currently on 2 L nasal cannula with pulse ox of 99%. Cardiac operative 5.5 with an index of 2.6. Patient is on no pressors. Nitroglycerin drip has been discontinued. The patient was also Cardizem drip that was also discontinued. No focal neurological deficits. Using the incentive spirometer. Cardiac rhythm is still placed, AAI at the rate of 60. He is communicating. Is a bit lethargic. Hemoglobin is at 9.1, white cell count is at 9.4, platelet count is at 95, BUN is at 27 with a creatinine of 1.5 and sodium levels of 137. Noted the creatinine has been stable since yesterday. On today's evaluation of 10/07/2022 the patient is postop day #3. The patient underwent bypass 2 with MIGUEL to LAD and radial to diagonal and mitral valve repair. He was extubated without any major difficulties and currently is on room air. Is using the incentive spirometer. The mediastinal chest tubes will be removed today. The drainage is serosanguineous and the total amount of October the past 24 hours is in order of 320 mL. Left pleural chest tube has drained 200 mL over the past 24 hours. Chest x-ray was reviewed. No evidence of pneumothorax. No evidence of any pleural effusion. All of the tubes are in good location. Cardiac rhythm is sinus with a backup AHI at the rate of 60. The rest of the blood work from today shows a white cell count 12.9 hemoglobin of 9.4 and a platelet count of 103. BUN is 31 with a creatinine of 1.7 and a sodium level is at 134. He was switched to oral hydrocortisone regarding his Oliver's disease and the stress dose hydrocortisone was discontinued. He was started on IV Lasix. He is also on metoprolol 25 mg by mouth twice a day. He is also on Plavix. The Redford-Sadi catheter was removed yesterday and the Cordis still in place. Objective - Vital Signs Vital signs: Vital Signs Temp 99 F 10/07/22 08:00 Pulse 72 10/07/22 09:00 Resp 16 10/07/22 09:00 BP 114/56 10/07/22 09:00 Pulse Ox 98 10/07/22 09:00 FiO2 50 10/05/22 18:30 Intake & Output 10/06/22 10/07/22 10/07/22 18:59 06:59 18:59 Intake Total 680.976 432 72 Output Total 640 595 105 Balance 40.976 -163 -33 Weight 83 kg 93.4 kg Intake: IV 680 432 72 0.9 PRESSURE BAG 90 72 12 CO/CI 50 Lactated Ringers 1,000 ml 540 360 60 @ 20 mls/hr IV .Q24H ALIYA Rx#:[id number] Intake, IV Titration 0.976 Amount Insulin Regular 100 unit 0.976 In Sodium Chloride 0.9% 100 ml @ Per Protocol IV .Q0M ALIYA Rx#:[id number] Output: Chest Tube Drainage 300 210 50 Chest Tube Mediastinal 220 100 50 Pleural Catheter Left 80 110 0 Urine 340 385 55 Other: Voiding Method Indwelling Catheter Indwelling Catheter Indwelling Catheter ABP, PAP, CO, CI - Last Documented Arterial Blood Pressure 100/49 Pulmonary Artery Pressure 23/10 Cardiac Output 5.5 Cardiac Index 2.6 - Exam CONSTITUTIONAL: Sitting up to the bedside chair in the intensive care unit, appears comfortable, cooperative, no apparent acute distress. HEENT: Neck is supple, no JVD, no lymphadenopathy. Right IJ Cordis in place and functioning. RESPIRATORY: Lungs sounds essentially clear throughout, diminished to his bilateral bases. Respirations are symmetrical and nonlabored. Currently on room air with oxygen saturations 96%. Able to achieve 9786-2239 mL on his incentive spirometry. Strong cough. CARDIOVASCULAR: Regular rhythm and rate. S1 and S2 present, negative for S3, gallop or murmur. Sternum is stable. Palpable peripheral pulses bilaterally, No calf pain or tenderness noted. Heart hugger in place with patient demonstrating appropriate use. Knee-high NAVA hose and sequential compression devices in place to his bilateral lower extremities. GASTROINTESTINAL: Abdomen soft, nontender, nondistended. Hypoactive bowel sounds present 4 quadrants. Tolerating clear liquid diet. Passing flatus. No guarding or rigidity. GENITOURINARY: Hazel present draining clear, yellow urine. Urine output 255 mL in the last 8 hours. INTEGUMENTARY: Skin is warm and dry with no evidence of clubbing or cyanosis. Midline sternal incision clean dry and well approximated, covered with dry intact dressing. Left arm radial artery harvest sites clean, dry and approximated. No drainage or redness is present. NEUROLOGIC: Cranial nerves II through XII intact. No focal deficits. MUSKULOSKELETAL: Able to move all extremities, strength equal bilaterally, generalized weakness. PSYCHIATRIC: Alert and oriented to person place and time, appropriate affect, intact judgment and insight. INVASIVE LINES AND TUBES: Mediastinal/left pleural chest tubes present and connected to low continuous wall suction, no air leaks present. Mediastinal tubes with 70 mL of thin serosanguineous drainage overnight, 320 mL output in the last 24 hours. Left pleural chest tube with 100 mL of thin serosanguineous drainage overnight, 200 mL output in the last 24 hours. Atrial and ventricular epicardial pacemaker wires present, connected to back up bedside pacemaker generator, AAI mode of 60 BPM. Right internal jugular Cordis, right radial arterial line present. Current CVP 13 mmHg. - Labs CBC & Chem 7: 10/07/22 03:58 10/07/22 03:58 Labs: Abnormal Lab Results - Last 24 Hours (Table) 10/06/22 10/06/22 10/06/22 Range/Units 10:58 12:13 12:53 WBC (3.8-10.6) k/uL RBC (4.30-5.90) m/uL Hgb (13.0-17.5) gm/dL Hct (39.0-53.0) % Plt Count (150-450) k/uL Neutrophils # (1.3-7.7) k/uL Sodium (137-145) mmol/L BUN (9-20) mg/dL Creatinine (0.66-1.25) mg/dL Glucose (74-99) mg/dL POC Glucose (mg/dL) 115 H 113 H 130 H (70-110) mg/dL Calcium (8.4-10.2) mg/dL AST (17-59) U/L Alkaline Phosphatase (38-126) U/L Total Protein (6.3-8.2) g/dL 10/06/22 10/06/22 10/07/22 Range/Units 16:21 20:01 03:58 WBC 12.9 H (3.8-10.6) k/uL RBC 2.91 L (4.30-5.90) m/uL Hgb 9.4 L (13.0-17.5) gm/dL Hct 26.7 L (39.0-53.0) % Plt Count 103 L (150-450) k/uL Neutrophils # 10.8 H (1.3-7.7) k/uL Sodium (137-145) mmol/L BUN (9-20) mg/dL Creatinine (0.66-1.25) mg/dL Glucose (74-99) mg/dL POC Glucose (mg/dL) 120 H 138 H (70-110) mg/dL Calcium (8.4-10.2) mg/dL AST (17-59) U/L Alkaline Phosphatase (38-126) U/L Total Protein (6.3-8.2) g/dL 10/07/22 10/07/22 Range/Units 03:58 06:31 WBC (3.8-10.6) k/uL RBC (4.30-5.90) m/uL Hgb (13.0-17.5) gm/dL Hct (39.0-53.0) % Plt Count (150-450) k/uL Neutrophils # (1.3-7.7) k/uL Sodium 134 L (137-145) mmol/L BUN 31 H (9-20) mg/dL Creatinine 1.74 H (0.66-1.25) mg/dL Glucose 117 H (74-99) mg/dL POC Glucose (mg/dL) 112 H (70-110) mg/dL Calcium 8.0 L (8.4-10.2) mg/dL AST 64 H (17-59) U/L Alkaline Phosphatase 34 L (38-126) U/L Total Protein 5.2 L (6.3-8.2) g/dL Assessment and Plan Plan: CABG 2 with MIGUEL to LAD, left radial artery to diagonal, mitral valve repair with artificial cords to P2 2 and annuloplasty with a 30 mm AnnuloFlex band. The patient is currently postop day #2. The surgery was done for coronary artery disease and severe mitral regurgitation with a rupture of P2 chordae. The patient is hemodynamically stable. The patient is on no pressors. Adequate cardiac output and index. The patient remains paced AAI at the rate of 60. Adequate cardiac output and index. Hemodynamically stable. Redford-Sadi catheters were removed and the patient is currently on room and oxygen Postthoracotomy, currently intubated on a mechanical ventilator. The patient was extubated to nasal cannula. The currently the patient is room air oxygen L. Chest tubes are in place. Output is noted. No evidence of any air leak. No evidence of any pneumothorax. The mediastinal chest tube will be removed today History of Oliver's disease Maintain a hydrocortisone outpatient basis, currently on oral hydrocortisone Hypothyroidism Hypertension Osteoarthritis Hyperkalemia Chronic stage III kidney disease, creatinine is stable Insulin drip and the patient is currently running at 1 unit an hour. This will be transitioned to a slight scale coverage. Plan Incentive spirometer Room air oxygen Oral hydrocortisone Sliding-scale insulin coverage Monitor output from the chest tubes, mediastinal chest tubes to be removed Chest x-ray was noted Redford-Sadi cath has been removed and the Cordis is in place Ambulate Cardiac rhythm is paced, AAI 60 and underlying rhythm is sinus bradycardia. Monitor blood sugar control Lasix IV We'll continue to follow
[2022-10-07] MEDS ORDERED: METOPROLOL TARTRATE 12.5 MG TAB PO STA (09:24)
[2022-10-07] MEDS: METOPROLOL TARTRATE 25 MG TAB PO SCH ×2 (09:25→20:18)
[2022-10-07] MEDS: FUROSEMIDE 10 MG/ML 2 ML VIAL IV SCH ×3 (09:25→23:47)
[2022-10-07] MEDS: POTASSIUM CHLORIDE ER 20 MEQ TAB.ER PO SCH (09:25)
[2022-10-07] MEDS: ONDANSETRON 4 MG/2 ML VIAL IVP PRN (09:25)
[2022-10-07 11:36] LABS: Glucose,Whole Blood 99 mg/dL (70-110)
[2022-10-07] MEDS: ACETAMINOPHEN TAB 325 MG TAB PO PRN ×3 (12:09→23:46)
--- NOTE | 2022-10-07 12:16 | P.PN ---
Subjective Progress Note Date: 10/07/22 The patient is a 72-year-old male who follows in the office with Dr. Gaines. He is currently admitted after undergoing coronary artery bypass with MIGUEL to LAD and left radial to diagonal, along with mitral valve repair. Procedure was performed yesterday with Dr. Alvarado. The patient has been successfully extubated and weaned off of vasopressor support. The patient has had postoperative bradycardia requiring epicardial pacing. Cardizem drip has been discontinued and low-dose beta declan has been started as of today. Patient was interviewed and examined resting comfortably in bed. CV surgery is prepping for mediastinal chest tube removal. Patient denies any dizziness when up ambulating around the room. No Orthopnea. GENERAL: Well-appearing, well-nourished and in no acute distress. NECK: Supple without JVD or thyromegaly. LUNGS: Breath sounds clear to auscultation bilaterally. Respiration equal and unlabored. No wheezes, rales or rhonchi. HEART: Regular rate and rhythm without murmurs, rubs or gallops. S1 and S2 heard. Heart regular in place EXTREMITIES: Normal range of motion, no edema. No clubbing or cyanosis. Peripheral pulses intact and strong. Left radial dressing in place VITALS: Blood pressure 112/58, pulse 71, respiratory rate 14, SpO2 98% on room air TELEMETRY: Sinus rhythm overnight. Heart rates in the 70s. No arrhythmias. LABS: WBC 12.9, hemoglobin 9.4, hematocrit 26.7, platelet 103, sodium 134, potassium 4.2, BUN 31, creatinine 1.71 IMPRESSION: Multivessel coronary artery disease Status post CABG 2 Mitral regurgitation Status post mitral valve repair History of El's disease History hypertension History of hypothyroidism Chronic kidney disease, stage III PLAN: Continue supportive treatment Monitor for bradycardia after starting beta blockers Aggressive pulmonary hygiene Further recommendations to be based on clinical course I am dictating on behalf of Dr Armando Escamilla's history/physical and assessment/plan. Objective - Vital Signs Vital signs: Vital Signs Temp 99 F 10/07/22 08:00 Pulse 70 10/07/22 11:32 Resp 14 10/07/22 11:00 BP 112/58 10/07/22 11:00 Pulse Ox 98 10/07/22 11:00 FiO2 50 10/05/22 18:30 Intake & Output 10/06/22 10/07/22 10/07/22 18:59 06:59 18:59 Intake Total 680.976 432 108 Output Total 640 595 535 Balance 40.976 -163 -427 Weight 83 kg 93.4 kg Intake: IV 680 432 108 0.9 PRESSURE BAG 90 72 18 CO/CI 50 Lactated Ringers 1,000 ml 540 360 90 @ 20 mls/hr IV .Q24H [facility] Rx#:[id number] Intake, IV Titration 0.976 Amount Insulin Regular 100 unit 0.976 In Sodium Chloride 0.9% 100 ml @ Per Protocol IV .Q0M [facility] Rx#:[id number] Output: Chest Tube Drainage 300 210 80 Chest Tube Mediastinal 220 100 70 Pleural Catheter Left 80 110 10 Urine 340 385 455 Other: Voiding Method Indwelling Catheter Indwelling Catheter Indwelling Catheter ABP, PAP, CO, CI - Last Documented Arterial Blood Pressure 100/49 Pulmonary Artery Pressure 23/10 Cardiac Output 5.5 Cardiac Index 2.6 - Labs CBC & Chem 7: 10/07/22 03:58 10/07/22 03:58 Labs: Abnormal Lab Results - Last 24 Hours (Table) 10/06/22 10/06/22 10/06/22 Range/Units 12:13 12:53 16:21 WBC (3.8-10.6) k/uL RBC (4.30-5.90) m/uL Hgb (13.0-17.5) gm/dL Hct (39.0-53.0) % Plt Count (150-450) k/uL Neutrophils # (1.3-7.7) k/uL Sodium (137-145) mmol/L BUN (9-20) mg/dL Creatinine (0.66-1.25) mg/dL Glucose (74-99) mg/dL POC Glucose (mg/dL) 113 H 130 H 120 H (70-110) mg/dL Calcium (8.4-10.2) mg/dL AST (17-59) U/L Alkaline Phosphatase (38-126) U/L Total Protein (6.3-8.2) g/dL 10/06/22 10/07/22 10/07/22 Range/Units 20:01 03:58 03:58 WBC 12.9 H (3.8-10.6) k/uL RBC 2.91 L (4.30-5.90) m/uL Hgb 9.4 L (13.0-17.5) gm/dL Hct 26.7 L (39.0-53.0) % Plt Count 103 L (150-450) k/uL Neutrophils # 10.8 H (1.3-7.7) k/uL Sodium 134 L (137-145) mmol/L BUN 31 H (9-20) mg/dL Creatinine 1.74 H (0.66-1.25) mg/dL Glucose 117 H (74-99) mg/dL POC Glucose (mg/dL) 138 H (70-110) mg/dL Calcium 8.0 L (8.4-10.2) mg/dL AST 64 H (17-59) U/L Alkaline Phosphatase 34 L (38-126) U/L Total Protein 5.2 L (6.3-8.2) g/dL 10/07/ Range/Units 06:31 WBC (3.8-10.6) k/uL RBC (4.30-5.90) m/uL Hgb (13.0-17.5) gm/dL Hct (39.0-53.0) % Plt Count (150-450) k/uL Neutrophils # (1.3-7.7) k/uL Sodium (137-145) mmol/L BUN (9-20) mg/dL Creatinine (0.66-1.25) mg/dL Glucose (74-99) mg/dL POC Glucose (mg/dL) 112 H (70-110) mg/dL Calcium (8.4-10.2) mg/dL AST (17-59) U/L Alkaline Phosphatase (38-126) U/L Total Protein (6.3-8.2) g/dL
[2022-10-07 16:44] LABS: Glucose,Whole Blood 104 mg/dL (70-110)
[2022-10-07] MEDS: HYDROCORTISONE 10 MG TAB PO SCH (16:46)
[2022-10-07 19:37] LABS: Glucose,Whole Blood 116 mg/dL (70-110)
[2022-10-07] MEDS: SENNOSIDES-DOCUSATE SODIUM 1 EACH TAB PO SCH (20:17)
--- NOTE | 2022-10-07 21:48 | P.PN ---
Subjective This is a pleasant 72 years old male with past medical history of Hypertension, hypothyroidism, El disease Patient with a known coronary artery disease underwent 2 vessel bypass surgery and mitral valve repair Patient currently resting comfortably with no complaint Patient chest pain and dyspnea CONTROLLED Hemodynamically stable None showing mild anemia with hemoglobin 9.1 which is expected Platelet count is 87-95. INR is 1.1 Creatinine 1.5 which is baseline 1.4-1.7 Chest x-ray: No acute process. Check hemoglobin A1c on 10/02/2022 was 4.9 Patient tolerated lying comfortable in the chair, chest tube in place. 10/07/2022 Patient clinically doing well Denies chest pain or dyspnea, no new complaint Hemoglobin 9.4, creatinine 1.7 which is close to baseline Patient was started on IV Lasix 20 mg 3 times a day and also on metoprolol and P lavix burst primary team Objective - Vital Signs Vital signs: Vital Signs Temp 98.7 F 10/07/22 12:00 Pulse 72 10/07/22 12:00 Resp 16 10/07/22 12:00 BP 111/67 10/07/22 12:00 Pulse Ox 95 10/07/22 12:00 FiO2 50 10/05/22 18:30 Intake & Output 10/06/22 10/07/22 10/07/22 18:59 06:59 18:59 Intake Total 680.976 432 308 Output Total 640 595 710 Balance 40.976 -163 -402 Weight 83 kg 93.4 kg Intake: IV 680 432 108 0.9 PRESSURE BAG 90 72 18 CO/CI 50 Lactated Ringers 1,000 ml 540 360 90 @ 20 mls/hr IV .Q24H [facility] Rx#:[id number] Intake, IV Titration 0.976 Amount Insulin Regular 100 unit 0.976 In Sodium Chloride 0.9% 100 ml @ Per Protocol IV .Q0M [facility] Rx#:[id number] Oral 200 Output: Chest Tube Drainage 300 210 130 Chest Tube Mediastinal 220 100 70 Pleural Catheter Left 80 110 60 Urine 340 385 580 Other: Voiding Method Indwelling Catheter Indwelling Catheter Indwelling Catheter ABP, PAP, CO, CI - Last Documented Arterial Blood Pressure 100/49 Pulmonary Artery Pressure 23/10 Cardiac Output 5.5 Cardiac Index 2.6 - Exam GENERAL: The patient is alert and oriented x3, not in any acute distress. Well developed, well nourished. HEENT: Pupils are round and equally reacting to light. EOMI. No scleral icterus. No conjunctival pallor. Normocephalic, atraumatic. No pharyngeal erythema. No thyromegaly. CARDIOVASCULAR: S1 and S2 present. No murmurs, rubs, or gallops. PULMONARY: Chest is clear to auscultation, no wheezing , no crackles. ABDOMEN: Soft, nontender, nondistended, normoactive bowel sounds. No palpable organomegaly. MUSCULOSKELETAL: No joint swelling or deformity. EXTREMITIES: No cyanosis, clubbing, or pedal edema. NEUROLOGICAL: Gross neurological examination did not reveal any focal deficits. SKIN: No rashes. no petechiae. - Labs CBC & Chem 7: 10/07/22 03:58 10/07/22 03:58 Labs: Abnormal Lab Results - Last 24 Hours (Table) 10/06/22 10/06/22 10/06/22 Range/Units 12:53 16:21 20:01 WBC (3.8-10.6) k/uL RBC (4.30-5.90) m/uL Hgb (13.0-17.5) gm/dL Hct (39.0-53.0) % Plt Count (150-450) k/uL Neutrophils # (1.3-7.7) k/uL Sodium (137-145) mmol/L BUN (9-20) mg/dL Creatinine (0.66-1.25) mg/dL Glucose (74-99) mg/dL POC Glucose (mg/dL) 130 H 120 H 138 H (70-110) mg/dL Calcium (8.4-10.2) mg/dL AST (17-59) U/L Alkaline Phosphatase (38-126) U/L Total Protein (6.3-8.2) g/dL 10/07/22 10/07/22 10/07/22 Range/Units 03:58 03:58 06:31 WBC 12.9 H (3.8-10.6) k/uL RBC 2.91 L (4.30-5.90) m/uL Hgb 9.4 L (13.0-17.5) gm/dL Hct 26.7 L (39.0-53.0) % Plt Count 103 L (150-450) k/uL Neutrophils # 10.8 H (1.3-7.7) k/uL Sodium 134 L (137-145) mmol/L BUN 31 H (9-20) mg/dL Creatinine 1.74 H (0.66-1.25) mg/dL Glucose 117 H (74-99) mg/dL POC Glucose (mg/dL) 112 H (70-110) mg/dL Calcium 8.0 L (8.4-10.2) mg/dL AST 64 H (17-59) U/L Alkaline Phosphatase 34 L (38-126) U/L Total Protein 5.2 L (6.3-8.2) g/dL Assessment and Plan Assessment: Coronary artery disease, status post 2 vessel CABG on 10/05 Severe mitral regurgitation status post atrial valve repair Hypothyroidism [place] disease Hypertension Expected postop anemia Mild thrombocytopenia chronic kidney disease stage III Plan: Continue with Cortef current dose Pain management Continue with metoprolol Cardiology consult Pulmonary consult Cardiothoracic surgery team primary team on the case Labs and medication were reviewed.. Continue same treatment. Continue with symptomatic treatment. Resume home medication. Monitor labs and vitals. DVT and GI prophylaxis. Further recommendations as per clinical course of the patient DVT prophylaxis: Subcutaneous heparin GI Prophylaxis: Ppi Prognosis is guarded
[2022-10-07 22:17] LABS: Glucose,Whole Blood 122 mg/dL (70-110)
[2022-10-08 04:19] LABS: Basophils % (A) 0 %; Eosinophils % (A) 0 %; HCT 25.6 % (39.0-53.0); HGB 8.8 gm/dL (13.0-17.5); Lymphocytes # (A) 1.4 k/uL (1.0-4.8); Lymphocytes % (A) 14 %; MCH 31.8 pg (25.0-35.0); MCHC 34.4 g/dL (31.0-37.0); MCV 92.4 fL (80.0-100.0); Mean Platelet Volume 7.7; Monocytes # (A) 0.5 k/uL (0-1.0); Monocytes % (A) 5 %; Neutrophils # (A) 8.1 k/uL (1.3-7.7); Neutrophils % (A) 80 %; Poikilocytosis Slight; RBC 2.77 m/uL (4.30-5.90); RDW 15.2 % (11.5-15.5); WBC 10.2 k/uL (3.8-10.6)
[2022-10-08 04:27] LABS: Platelet Count 90 k/uL (150-450)
[2022-10-08 05:10] LABS: ALT 27 U/L (4-49); AST 54 U/L (17-59); African American GFR (CKD) 44 (>60 ml/min/1.73 sqM); Albumin 3.1 g/dL (3.5-5.0); Alkaline Phosphatase 44 U/L (38-126); Anion Gap 7 mmol/L; Blood Urea Nitrogen 32 mg/dL (9-20); Calcium 7.9 mg/dL (8.4-10.2); Carbon Dioxide 27 mmol/L (22-30); Chloride 99 mmol/L (98-107); Glucose 95 mg/dL (74-99); Non-African American GFR(CKD) 38 (>60 ml/min/1.73 sqM); Sodium 133 mmol/L (137-145); Total Bilirubin 0.7 mg/dL (0.2-1.3); Total Protein 4.9 g/dL (6.3-8.2)
[2022-10-08] MEDS: ACETAMINOPHEN TAB 325 MG TAB PO PRN (05:46)
--- NOTE | 2022-10-08 06:36 | XR ---
EXAMINATION TYPE: XR chest 1V portable DATE OF EXAM: 10/08/2022 6:16 AM COMPARISON: Chest radiographs from 10/07/2022 TECHNIQUE: XR chest 1V portable Portable AP radiograph of the chest. CLINICAL INDICATION:Male, 72 years old with history of Post op Cardiac surgery; FINDINGS: Lungs/Pleura: No pleural effusion. Similar pleural parenchymal density left perihilar region. Trace l eft apical pneumothorax. Pulmonary vascularity: Unremarkable. Heart/mediastinum: Cardiomediastinal silhouette is stable. Musculoskeletal: No acute osseous pathology. Bilateral shoulder arthropathy. Midline sternotomy wires and surgical clips project over the mediastinum. Other findings: None Lines/Tubes: Left chest tube is in stable position. Mediastinal drain has been removed. IMPRESSION: 1. Trace left apical pneumothorax with left chest tube in place. 2. Postsurgical changes.
[2022-10-08 06:39] LABS: Glucose,Whole Blood 98 mg/dL (70-110)
[2022-10-08] MEDS: INSULIN ASPART (NovoLOG) 100 UNIT/ML VIAL SQ SCH ×4 (06:46→20:20)
[2022-10-08] MEDS: PANTOPRAZOLE 40 MG TABLET PO SCH (06:46)
[2022-10-08] MEDS: LEVOTHYROXINE 75 MCG TAB PO SCH (06:47)
[2022-10-08] MEDS: ONDANSETRON 4 MG/2 ML VIAL IVP PRN (06:54)
[2022-10-08] MEDS: IPRATROPIUM-ALBUTEROL 3 ML NEB INHALATION SCH ×4 (08:01→20:14)
[2022-10-08] MEDS: HEPARIN SODIUM,PORCINE/PF 5,000 UNIT/0.5 ML SYRINGE SQ SCH ×2 (08:30→17:03)
[2022-10-08] MEDS: FUROSEMIDE 10 MG/ML 2 ML VIAL IV SCH (08:30)
[2022-10-08] MEDS: HYDROCORTISONE 20 MG TAB PO SCH (08:30)
[2022-10-08] MEDS: CHOLECALCIFEROL 25 MCG (1000 IU) TABLET PO SCH (08:30)
[2022-10-08] MEDS: CLOPIDOGREL 75 MG TAB PO SCH (08:31)
[2022-10-08] MEDS: METOPROLOL TARTRATE 25 MG TAB PO SCH ×2 (08:31→20:01)
[2022-10-08] MEDS: FLUDROCORTISONE 0.1 MG TAB PO SCH (08:33)
[2022-10-08] MEDS: POTASSIUM CHLORIDE ER 20 MEQ TAB.ER PO SCH (08:33)
[2022-10-08] MEDS: ATORVASTATIN 40 MG TAB PO SCH (08:33)
[2022-10-08] MEDS: METOCLOPRAMIDE 5 MG/ML 2 ML VIAL IVP PRN (08:49)
[2022-10-08] MEDS ORDERED: ALPRAZolam 0.25 MG TAB PO STA (10:22)
[2022-10-08 11:43] VITALS: BMI 27.6
--- NOTE | 2022-10-08 11:44 | PN ---
PROGRESS NOTE SUBJECTIVE: Jose Francisco is a 72-year-old gentleman, who underwent bypass surgery and mitral valve repair on Saturday, and today is postoperative day #3. He remains in sinus rhythm, stable hemodynamically. He has episodes of anxiety and discomfort in the surgical site. He still has a chest tube in, and pacer wires are still in place. MEDICATIONS: Currently on: 1. Atorvastatin. 2. Florinef. 3. Lasix. 4. Insulin. 5. Synthroid. 6. Lopressor 25 b.i.d. 7. K-Dur. OBJECTIVE: GENERAL: Comfortable at rest. VITAL SIGNS: Stable. CHEST: Reveals diminished air entry at the bases. HEART: Reveals first and second heart sounds. No gallop. No murmur. ABDOMEN: Soft. EXTREMITIES: Did not reveal any edema. Peripheral pulses are felt. LABORATORY DATA: Show hemoglobin of 8.8, platelet count is 90. Potassium is 4, creatinine is 1.78. ASSESSMENT: 1. Coronary artery disease, status post coronary artery bypass grafting. 2. Mitral regurgitation, status post mitral valve repair. 3. History of [place]'s disease. PLAN: The patient will continue current medications. MMODL / IJN: [id number] /
[2022-10-08 11:56] LABS: Glucose,Whole Blood 87 mg/dL (70-110)
--- NOTE | 2022-10-08 12:29 | P.PN ---
Subjective Progress Note Date: 10/08/22 Principal diagnosis: POD #3 CABG 2 with MIGUEL to LAD, left radial artery to diagonal, mitral valve repair with artificial cords to P2 2 and annuloplasty with a 30 mm AnnuloFlex band. Ligation of the left atrial appendage with a 2 layer running closure of 3-0 Prolene. Endovascular harvest of the left radial artery. LASHAE by anesthesia. POD #2 CABG 3 with MIGUEL to LAD, left radial artery to diagonal, mitral valve repair with artificial cords to P2 2 and annuloplasty with a 30 mm AnnuloFlex band. Ligation of the left atrial appendage with a 2 layer running closure of 3-0 Prolene. Endovascular harvest of the left radial artery. LASHAE by anesthesia. Patient was reevaluated today on 10/08/2022, remains in the ICU, not in any distress, he is on room air and O2 saturations 94-98%. Achieving over 1500 mL in incentive spirometry. Patient has normal sinus rhythm, chest x-ray is reassuring, small tiny left apical pneumothorax present but the chest tube on the left side is also present minimal basilar atelectasis is noted, no evidence of pneumonia. CBC is unremarkable, hemoglobin is 8.8 electrolytes are normal BUN is 52 creatinine 1.78, patient apparently sees Dr. Solorzano on a regular basis for his underlying chronic kidney disease. Objective - Vital Signs Vital signs: Vital Signs Temp 98.3 F 10/08/22 08:00 Pulse 64 10/08/22 11:53 Resp 18 10/08/22 09:00 BP 122/51 10/08/22 09:00 Pulse Ox 98 10/08/22 09:00 FiO2 50 10/05/22 18:30 Intake & Output 10/07/22 10/08/22 10/08/22 18:59 06:59 18:59 Intake Total 508 700 Output Total 1230 1325 1025 Balance -877 -4320 -015 Weight 93.4 kg 92.4 kg 92.4 kg Intake: IV 108 0.9 PRESSURE BAG 18 Lactated Ringers 1,000 ml 90 @ 20 mls/hr IV .Q24H [facility] Rx#:[id number] Oral 400 700 Output: Chest Tube Drainage 180 60 50 Chest Tube Mediastinal 70 Pleural Catheter Left 110 60 50 Urine 1050 1265 975 Other: Voiding Method Indwelling Catheter Indwelling Catheter Indwelling Catheter ABP, PAP, CO, CI - Last Documented Arterial Blood Pressure 100/49 Pulmonary Artery Pressure 23/10 Cardiac Output 5.5 Cardiac Index 2.6 - Exam GENERAL: Revealed a 72-year-old white male in no distress, on room air. HEENT: The left, EOMI, nonicteric, no neck masses no JVD. CARDIOVASCULAR: S1 and S2 present. No murmurs, rubs, or gallops. PULMONARY: Chest is clear to auscultation, no wheezing , no crackles. left- sided chest tube remains in place. ABDOMENsoft nontender no megaly no rebound no guarding. MUSCULOSKELETAL: No joint swelling or deformity. EXTREMITIES: No cyanosis, clubbing, or pedal edema. NEUROLOGICAL: Gross neurological examination did not reveal any focal deficits. SKIN: No rashes. no petechiae. - Labs CBC & Chem 7: 10/08/22 03:48 10/08/22 03:48 Labs: Abnormal Lab Results - Last 24 Hours (Table) 10/07/22 10/07/22 10/08/22 Range/Units 19:35 22:15 03:48 RBC 2.77 L (4.30-5.90) m/uL Hgb 8.8 L (13.0-17.5) gm/dL Hct 25.6 L (39.0-53.0) % Plt Count 90 L (150-450) k/uL Neutrophils # 8.1 H (1.3-7.7) k/uL Sodium (137-145) mmol/L BUN (9-20) mg/dL Creatinine (0.66-1.25) mg/dL POC Glucose (mg/dL) 116 H 122 H (70-110) mg/dL Calcium (8.4-10.2) mg/dL Total Protein (6.3-8.2) g/dL Albumin (3.5-5.0) g/dL 10/08/22 Range/Units 03:48 RBC (4.30-5.90) m/uL Hgb (13.0-17.5) gm/dL Hct (39.0-53.0) % Plt Count (150-450) k/uL Neutrophils # (1.3-7.7) k/uL Sodium 133 L (137-145) mmol/L BUN 32 H (9-20) mg/dL Creatinine 1.78 H (0.66-1.25) mg/dL POC Glucose (mg/dL) (70-110) mg/dL Calcium 7.9 L (8.4-10.2) mg/dL Total Protein 4.9 L (6.3-8.2) g/dL Albumin 3.1 L (3.5-5.0) g/dL Assessment and Plan Assessment: Impression:CABG 2 with MIGUEL to LAD, left radial artery to diagonal, mitral valve repair with artificial cords to P2 2 and annuloplasty with a 30 mm AnnuloFlex band. The patient is currently postop day #3 Postoperative left apical pneumothorax, small, expected. History of mitral valve regurgitation, status post mitral valve repair History of Wagoner's disease, on hydrocortisone. Hypothyroidism Benign essential hypertension Dyslipidemia Chronic kidney disease stage III, follows on a regular basis with nephrology Type 2 diabetes, on insulin. Lifetime nonsmoker Postoperative anemia, expected secondary to blood loss. Recommendation: Continue incentive spirometry Continue oral hydrocortisone Ambulate in the hallway if possible Discontinue on necessary catheters Continue Plavix and beta blockers as well as statins, maximize medical therapy. Continue to hold aspirin as the patient had documented ALLERGY Continue close follow-up on renal status and nephrology to evaluate. Continue Lasix when necessary. We will continue to follow Time with Patient: Less than 30
[2022-10-08] MEDS: DEXTROSE 5% IN WATER 100 ML with AMIODARONE 150 MG IV PRN ×2 (12:55→14:28)
--- NOTE | 2022-10-08 13:06 | P.PN ---
Subjective Progress Note Date: 10/08/22 Principal diagnosis: Coronary artery disease, severe mitral valve regurgitation. 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 POD #3 CABG 2 with MIGUEL to LAD, left radial artery to diagonal, mitral valve repair with artificial cords to P2 2 and annuloplasty with a 30 mm AnnuloFlex band. Ligation of the left atrial appendage with a 2 layer running closure of 3-0 Prolene. Endovascular harvest of the left radial artery. LASHAE by anesthesia. Postoperative acute blood loss anemia, expected given cardiopulmonary bypass and hemodilution. The patient was seen and examined in follow-up today 10/08/2022 at his bedside in the intensive care unit. He is sitting up to the bedside chair, eating his breakfast, is awake, alert, oriented 3 and is in no acute distress. Denies any complaints of shortness of breath at this time, although was complaining of some surgical type pain to his left chest tube insertion site and is also complaining of a persistent headache. Currently rates his pain 3-4 out of 10 on the pain scale. He reports that the Tylenol has been helping his pain. Denies any nausea at this time but states that he has been having bouts of nausea. Oxygen saturation are 94% on room air and he is achieving 9602-7582 mL on his incentive spirometry with encouragement. Mediastinal chest tubes were discontinued yesterday without incident. Left pleural chest tube remains in place to low continuous wall suction -20 cm H2O. Draining thin serosanguineous drainage with 30 mL output in the last 8 hours and 200 mL output in the last 24 hours. No air leak is present. Bedside telemetry showing normal sinus rhythm with occasional PACs heart rate 70 bpm. He was started on metoprolol tartrate yesterday 25 mg by mouth twice a day. Atrial and ventricular epicardial pacemaker wires remain in place and are connected to that side backup pacemaker generator on an AAI of 60 BPM. He was started on Lasix 20 mg IV every 8 hours yesterday and has been diuresing well with 2.3 L of urine output in the last 24 hours. Chest x-ray and laboratory results reviewed. He remains afebrile the last 24 hours. The patient reports she has been up ambulating in the intensive care unit hallway with standby assistance from nursing and therapy staff and tolerating well with occasional lightheadedness. Objective - Vital Signs Vital signs: Vital Signs Temp 98.5 F 10/08/22 00:00 Pulse 62 10/08/22 06:00 Resp 21 10/08/22 06:00 BP 128/62 10/08/22 06:00 Pulse Ox 93 L 10/08/22 06:00 FiO2 50 10/05/22 18:30 Intake & Output 10/07/22 10/08/22 10/08/22 18:59 06:59 18:59 Intake Total 508 Output Total 1230 1325 Balance -722 -1325 Weight 93.4 kg 92.4 kg Intake: IV 108 0.9 PRESSURE BAG 18 Lactated Ringers 1,000 ml 90 @ 20 mls/hr IV .Q24H [facility] Rx#:[id number] Oral 400 Output: Chest Tube Drainage 180 60 Chest Tube Mediastinal 70 Pleural Catheter Left 110 60 Urine 1050 1265 Other: Voiding Method Indwelling Catheter Indwelling Catheter ABP, PAP, CO, CI - Last Documented Arterial Blood Pressure 100/49 Pulmonary Artery Pressure 23/10 Cardiac Output 5.5 Cardiac Index 2.6 - Exam CONSTITUTIONAL: Sitting up to the bedside chair in the intensive care unit, appears comfortable, cooperative, no apparent acute distress. HEENT: Neck is supple, no JVD, no lymphadenopathy. RESPIRATORY: Lungs sounds essentially clear throughout, diminished to his bilateral bases. Respirations are symmetrical and nonlabored. Currently on room air with oxygen saturations 94%. Able to achieve 2941-4947 mL on his incentive spirometry. Strong cough. CARDIOVASCULAR: Regular rhythm and rate. S1 and S2 present, negative for S3, gallop or murmur. Sternum is stable. Palpable peripheral pulses bilaterally, No calf pain or tenderness noted. Heart hugger in place with patient demonstrating appropriate use. Knee-high NAVA hose and sequential compression devices in place to his bilateral lower extremities. GASTROINTESTINAL: Abdomen soft, nontender, nondistended. Active bowel sounds present 4 quadrants. Tolerating diet. Passing flatus. No guarding or rigidity. GENITOURINARY: Hazel present draining clear, yellow urine. Urine output 910 mL in the last 8 hours. INTEGUMENTARY: Skin is warm and dry with no evidence of clubbing or cyanosis. Midline sternal incision clean dry and well approximated, covered with dry intact dressing. Left arm radial artery harvest sites clean, dry and approximated. No drainage or redness is present. Small ecchymosis area to his left antecubital area, soft and nontender to touch. NEUROLOGIC: Cranial nerves II through XII intact. No focal deficits. MUSKULOSKELETAL: Able to move all extremities, strength equal bilaterally, generalized weakness. PSYCHIATRIC: Alert and oriented to person place and time, appropriate affect, intact judgment and insight. INVASIVE LINES AND TUBES: Left pleural chest tube present and connected to low continuous wall suction, no air leak present. Left pleural chest tube with 30 mL of thin serosanguineous drainage overnight, 200 mL output in the last 24 hours. Atrial and ventricular epicardial pacemaker wires present, connected to back up bedside pacemaker generator, AAI mode of 60 BPM. - Allied health notes Allied health notes reviewed: nursing - Labs CBC & Chem 7: 10/08/22 03:48 10/08/22 03:48 Labs: Abnormal Lab Results - Last 24 Hours (Table) 10/07/22 10/07/22 10/08/22 Range/Units 19:35 22:15 03:48 RBC 2.77 L (4.30-5.90) m/uL Hgb 8.8 L (13.0-17.5) gm/dL Hct 25.6 L (39.0-53.0) % Plt Count 90 L (150-450) k/uL Neutrophils # 8.1 H (1.3-7.7) k/uL Sodium (137-145) mmol/L BUN (9-20) mg/dL Creatinine (0.66-1.25) mg/dL POC Glucose (mg/dL) 116 H 122 H (70-110) mg/dL Calcium (8.4-10.2) mg/dL Total Protein (6.3-8.2) g/dL Albumin (3.5-5.0) g/dL 10/08/22 Range/Units 03:48 RBC (4.30-5.90) m/uL Hgb (13.0-17.5) gm/dL Hct (39.0-53.0) % Plt Count (150-450) k/uL Neutrophils # (1.3-7.7) k/uL Sodium 133 L (137-145) mmol/L BUN 32 H (9-20) mg/dL Creatinine 1.78 H (0.66-1.25) mg/dL POC Glucose (mg/dL) (70-110) mg/dL Calcium 7.9 L (8.4-10.2) mg/dL Total Protein 4.9 L (6.3-8.2) g/dL Albumin 3.1 L (3.5-5.0) g/dL - Imaging and Cardiology Chest x-ray: report reviewed, image reviewed Assessment and Plan Assessment: Coronary artery disease, status post 2 vessel coronary artery bypass grafting Severe mitral valve regurgitation, status post mitral valve repair History of El's disease, currently taking hydrocortisone 40 mg in the morning and 20 mg in the afternoon Hypertension Hyperlipidemia Chronic kidney disease, baseline creatinine 1.4-1.8 History of osteoarthritis History of skin cancer Lifetime nonsmoker Postoperative acute blood loss anemia, expected given cardiopulmonary bypass and hemodilution Plan: Continue to maximize medical therapy with statin and Plavix. Continue metoprolol tartrate 25 mg by mouth twice a day with hold parameters, we will increase as tolerated. Continue to hold aspirin as it is a contraindication as the patient has a doc umented ALLERGY. Encourage incentive spirometry use 10 times every hour while awake. Br onchodilators per pulmonology. Increase activity, ambulate as tolerated. PT/OT/cardiac rehab following. Will monitor daily labs and chest x-rays. Electrolyte replacement protocol. GI/DVT prophylaxis. Pain control with current medication regimen. Insulin management per internal medicine service. Patient is not a diabetic with preoperative hemoglobin A1c 4.9%, needs tight blood sugar control to p revent infection and promote healing, patient on chronic steroids. Remove left pleural chest tube. Remove Hazel catheter, continue to monitor strict in accurate I's and O's. Bladder scan every 6 hours and when necessary postvoid residual, if greater than 300 mL of postvoid residual May straight cath. Daily weights. Appropriate home meds resumed. Continue hydrocortisone, we will decrease to 30 mg by mouth in the morning and 20 mg by mouth in the afternoon starting tomorrow 10/09/2022 Lasix 20 mg IV Q8 hours. Potassium chloride 20 mEq by mouth daily while on Lasix. More recommendations to follow based on patient's clinical course. Time with Patient: Greater than 30
[2022-10-08] MEDS: ACETAMINOPHEN TAB 500 MG TAB PO PRN ×2 (13:11→19:26)
--- NOTE | 2022-10-08 13:16 | P.NPCON ---
History of Present Illness - Reason for Consult chronic renal failure - History of Present Illness Patient is a 72-year-old male with history of hypertension, coronary artery disease, chronic kidney disease and El's disease. Patient has CK D stage III a with baseline creatinine around 1.5 mg/dL. He is status post CABG 2, mitral valve repair on 10/05/2022 Serum creatinine increased to 1.7 yesterday and remains the same today. No complaints of shortness of breath Patient has had good urine output. Hazel to be discontinued today. 24-hour urine output at 2.3 L Currently off of all drips Left chest tube in place Maintained on IV Lasix 20 mg every 8 hours Blood pressure is not low. Chest x-ray is unremarkable. Review of Systems As per HPI Past Medical History Past Medical History: Cancer, Hypertension, Thyroid Disorder Additional Past Medical History / Comment(s): addisons disease, low testoster one, family hx of OH, recent u/s showed leaky valve. hx of asthma as a child. enlarged spleen (Gurvinder). borderline kidney issues. shelley Flores, hx. skin cancer, chronic steroid use for Zimmerman's History of Any Multi-Drug Resistant Organisms: None Reported Past Surgical History: Heart Catheterization, Hernia Repair, Joint Replacement, Orthopedic Surgery, Tonsillectomy Additional Past Surgical History / Comment(s): LEFT ANKLE FX WITHS SURGERY X3. inguinal hernia repair. rt knee replaced, colonoscopy Past Anesthesia/Blood Transfusion Reactions: No Reported Reaction Smoking Status: Never smoker - Past Family History Mother Family Medical History: No Reported History family Family Medical History: Coronary Artery Disease (CAD) Medications and Allergies Home Medications Medication Instructions Recorded Confirmed Type Cholecalciferol [Vitamin D3 (25 2,000 unit PO DAILY 05/31/17 10/05/22 History Mcg = 1000 Iu)] Fludrocortisone [Florinef] 0.1 mg PO DAILY 05/31/17 10/05/22 History Levothyroxine Sodium [Synthroid] 75 mcg PO DAILY 05/31/17 10/05/22 History Hydrocortisone [Cortef] 10 mg PO W/SUPPER #0 06/08/17 10/05/22 Rx Hydrocortisone [Cortef] 20 mg PO QAM #0 06/08/17 10/05/22 Rx Losartan Potassium [Cozaar] 25 mg PO DAILY 09/19/22 10/05/22 History Unk Biote Testosterone Pellet 1 applic SQ Q150D 09/19/22 10/05/22 History Unk Saw [place] 1,740 mg PO DAILY 09/19/22 10/05/22 History Allergies Allergy/AdvReac Type Severity Reaction Status Date / Time Penicillins AdvReac Unknown Unknown Verified 10/05/22 05:54 aspirin AdvReac INSTRUCTED Verified 10/05/22 05:54 NOT TO TAKE DUE TO ADDISONS. Physical Exam Vitals: Vital Signs Temp Pulse Resp BP Pulse Ox 10/08/22 13:00 140 H 15 120/62 93 L 10/08/22 12:39 140 H 120/62 94 L 10/08/22 11:53 64 10/08/22 11:44 70 10/08/22 09:00 82 18 122/51 98 10/08/22 08:12 78 10/08/22 08:03 68 94 L 10/08/22 08:00 98.3 F 73 21 109/61 96 10/08/22 07:00 67 8 L 110/55 89 L 10/08/22 06:00 62 21 128/62 93 L 10/08/22 05:00 61 18 104/56 95 10/08/22 04:00 63 14 114/63 95 10/08/22 03:00 60 17 114/66 95 10/08/22 02:00 61 15 97/57 93 L 10/08/22 01:00 61 13 115/61 94 L 10/08/22 00:00 98.5 F 63 15 108/60 94 L 10/07/22 23:00 62 13 98/64 92 L 10/07/22 22:00 62 16 104/57 93 L 10/07/22 21:00 66 15 136/64 93 L 10/07/22 20:00 99.2 F 71 15 110/57 96 10/07/22 19:58 75 10/07/22 19:47 74 10/07/22 19:00 68 14 99/57 94 L 10/07/22 18:00 68 15 113/55 94 L 10/07/22 17:00 67 16 104/56 93 L 10/07/22 16:00 98 F 72 16 103/52 95 10/07/22 15:00 68 14 101/56 95 10/07/22 14:00 69 16 104/59 95 Intake and Output 10/07/22 10/08/22 10/08/22 22:59 06:59 14:59 Intake Total 200 1150 Output Total 863 462 5827 Balance -575 -090 -250 Intake: Oral 200 1150 Output: Chest Tube Drainage 70 30 50 Pleural Catheter Left 70 30 50 Urine [phone] Other: Voiding Method Indwelling Catheter Indwelling Catheter Indwelling Catheter Weight 92.4 kg 92.4 kg ABP, PAP, CO, CI - Last 8 Hours Cardiac Output 5.5 Cardiac Output 5.5 Cardiac Output 5.5 Cardiac Output 5.5 Cardiac Index 2.6 Cardiac Index 2.6 Cardiac Index 2.6 Cardiac Index 2.6 Patient is awake, comfortable, no acute distress Alert oriented 3 Examination of the heart S1 and S2 Examination lungs bilateral breath sounds are heard [place] abdomen is soft nontender Examination lower extremity shows no significant edema EDUCATION RESEARCH ANALYST exam grossly intact Results - Lab Results Most recent lab results ABG pH 7.42 (7.35-7.45) 10/05/22 18:22 ABG pCO2 42 mmHg (35-45) 10/05/22 18:22 ABG pO2 148 mmHg (83-108) H 10/05/22 18:22 ABG HCO3 27 mmol/L (21-25) H 10/05/22 18:22 ABG O2 Saturation 99.6 % (94-97) H 10/05/22 18:22 Calcium 7.9 mg/dL (8.4-10.2) L 10/08/22 03:48 Magnesium 2.8 mg/dL (1.6-2.3) H 10/06/22 04:06 10/08/22 03:48 10/08/22 03:48 Assessment and Plan Assessment: 1. Acute kidney injury ATN currently nonoliguric, mostly hemodynamic. UA is completely benign on 10/02/2022 2. CK D stage III a secondary to nephrosclerosis with baseline creatinine around 1.5 mg/dL 3. Status post coronary artery bypass surgery 2 and mitral valve repair on 10/05/2022 4. Anemia multifactorial, rule out iron deficiency 5. 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 Avoid hypotension Check iron profile Thank you for the consultation. We will continue to follow the patient with you during his hospitalization
[2022-10-08 13:48] LABS: Magnesium 2.3 mg/dL (1.6-2.3); Potassium 3.8 mmol/L (3.5-5.1)
[2022-10-08] MEDS ORDERED: POTASSIUM CHLORIDE ER 20 MEQ TAB.ER PO STA (13:56)
[2022-10-08 16:38] LABS: Glucose,Whole Blood 114 mg/dL (70-110)
[2022-10-08] MEDS: HYDROCORTISONE 10 MG TAB PO SCH (17:04)
[2022-10-08 19:32] LABS: Glucose,Whole Blood 143 mg/dL (70-110)
[2022-10-08] MEDS: SENNOSIDES-DOCUSATE SODIUM 1 EACH TAB PO SCH (20:01)
[2022-10-08 21:03] LABS: % Iron Saturation 7.11 (15.00-50.00)
--- NOTE | 2022-10-08 21:17 | P.PN ---
Subjective This is a pleasant 72 years old male with past medical history of Hypertension, hypothyroidism, El disease Patient with a known coronary artery disease underwent 2 vessel bypass surgery and mitral valve repair Patient currently resting comfortably with no complaint Patient chest pain and dyspnea CONTROLLED Hemodynamically stable None showing mild anemia with hemoglobin 9.1 which is expected Platelet count is 87-95. INR is 1.1 Creatinine 1.5 which is baseline 1.4-1.7 Chest x-ray: No acute process. Check hemoglobin A1c on 10/02/2022 was 4.9 Patient tolerated lying comfortable in the chair, chest tube in place. 10/07/2022 Patient clinically doing well Denies chest pain or dyspnea, no new complaint Hemoglobin 9.4, creatinine 1.7 which is close to baseline Patient was started on IV Lasix 20 mg 3 times a day and also on metoprolol and P lavix burst primary team 10/08/2022 Patient was complaining of from some headache this morning about 6/10 with no weakness numbness or confusion, he wants only Tylenol. Postoperative from some chest pain and stomach upset which is mild and improving. He is hemodynamically stable Creatinine is mildly elevated at 1.7 compared to baseline of 1.3-1.6, has some elements of acute kidney injury, nephrology team were consulted Patient remains on IV Lasix. Also he is on home dose of cooperative, metoprolol 25 mg and Plavix Objective - Vital Signs Vital signs: Vital Signs Temp 98.3 F 10/08/22 08:00 Pulse 82 10/08/22 09:00 Resp 18 10/08/22 09:00 BP 122/51 10/08/22 09:00 Pulse Ox 98 10/08/22 09:00 FiO2 50 10/05/22 18:30 Intake & Output 10/07/22 10/08/22 10/08/22 18:59 06:59 18:59 Intake Total 508 700 Output Total 1230 1325 825 Balance -2 -0445 -125 Weight 93.4 kg 92.4 kg Intake: IV 108 0.9 PRESSURE BAG 18 Lactated Ringers 1,000 ml 90 @ 20 mls/hr IV .Q24H [facility] Rx#:[id number] Oral 400 700 Output: Chest Tube Drainage 180 60 50 Chest Tube Mediastinal 70 Pleural Catheter Left 110 60 50 Urine 1050 1265 775 Other: Voiding Method Indwelling Catheter Indwelling Catheter Indwelling Catheter ABP, PAP, CO, CI - Last Documented Arterial Blood Pressure 100/49 Pulmonary Artery Pressure 23/10 Cardiac Output 5.5 Cardiac Index 2.6 - Exam GENERAL: The patient is alert and oriented x3, not in any acute distress. Well developed, well nourished. HEENT: Pupils are round and equally reacting to light. EOMI. No scleral icterus. No conjunctival pallor. Normocephalic, atraumatic. No pharyngeal erythema. No thyromegaly. CARDIOVASCULAR: S1 and S2 present. No murmurs, rubs, or gallops. PULMONARY: Chest is clear to auscultation, no wheezing , no crackles. ABDOMEN: Soft, nontender, nondistended, normoactive bowel sounds. No palpable organomegaly. MUSCULOSKELETAL: No joint swelling or deformity. EXTREMITIES: No cyanosis, clubbing, or pedal edema. NEUROLOGICAL: Gross neurological examination did not reveal any focal deficits. SKIN: No rashes. no petechiae. - Labs CBC & Chem 7: 10/08/22 03:48 10/08/22 13:17 Labs: Abnormal Lab Results - Last 24 Hours (Table) 10/07/22 10/07/22 10/08/22 Range/Units 19:35 22:15 03:48 RBC 2.77 L (4.30-5.90) m/uL Hgb 8.8 L (13.0-17.5) gm/dL Hct 25.6 L (39.0-53.0) % Plt Count 90 L (150-450) k/uL Neutrophils # 8.1 H (1.3-7.7) k/uL Sodium (137-145) mmol/L BUN (9-20) mg/dL Creatinine (0.66-1.25) mg/dL POC Glucose (mg/dL) 116 H 122 H (70-110) mg/dL Calcium (8.4-10.2) mg/dL Total Protein (6.3-8.2) g/dL Albumin (3.5-5.0) g/dL 10/08/22 Range/Units 03:48 RBC (4.30-5.90) m/uL Hgb (13.0-17.5) gm/dL Hct (39.0-53.0) % Plt Count (150-450) k/uL Neutrophils # (1.3-7.7) k/uL Sodium 133 L (137-145) mmol/L BUN 32 H (9-20) mg/dL Creatinine 1.78 H (0.66-1.25) mg/dL POC Glucose (mg/dL) (70-110) mg/dL Calcium 7.9 L (8.4-10.2) mg/dL Total Protein 4.9 L (6.3-8.2) g/dL Albumin 3.1 L (3.5-5.0) g/dL Assessment and Plan Assessment: Coronary artery disease, status post 2 vessel CABG on 10/05 Severe mitral regurgitation status post atrial valve repair Hypothyroidism El disease Hypertension Expected postop anemia Mild thrombocytopenia chronic kidney disease stage III Plan: Continue with IV Lasix Continue with Cortef current dose Pain management Continue with metoprolol Cardiology consult Pulmonary consult nephrology consult Cardiothoracic surgery team primary team on the case Labs and medication were reviewed.. Continue same treatment. Continue with symptomatic treatment. Resume home medication. Monitor labs and vitals. DVT and GI prophylaxis. Further recommendations as per clinical course of the patient DVT prophylaxis: Subcutaneous heparin GI Prophylaxis: Ppi Prognosis is guarded
[2022-10-08] MEDS ORDERED: MELATONIN 3 MG TABLET PO ONE (23:30)
[2022-10-09] MEDS ORDERED: ALPRAZolam 0.25 MG TAB PO STA (00:07)
[2022-10-09] MEDS: METOCLOPRAMIDE 5 MG/ML 2 ML VIAL IVP PRN (01:42)
[2022-10-09] MEDS: HEPARIN SODIUM,PORCINE/PF 5,000 UNIT/0.5 ML SYRINGE SQ SCH ×4 (01:42→23:27)
[2022-10-09] MEDS: ONDANSETRON 4 MG/2 ML VIAL IVP PRN (02:30)
[2022-10-09] MEDS: ACETAMINOPHEN TAB 500 MG TAB PO PRN ×3 (02:47→23:27)
[2022-10-09] MEDS ORDERED: ALPRAZolam 0.25 MG TAB PO PRN (05:14)
[2022-10-09 05:21] LABS: ALT 43 U/L (4-49); AST 65 U/L (17-59); African American GFR (CKD) 46 (>60 ml/min/1.73 sqM); Albumin 3.1 g/dL (3.5-5.0); Alkaline Phosphatase 67 U/L (38-126); Anion Gap 6 mmol/L; Blood Urea Nitrogen 34 mg/dL (9-20); Calcium 7.9 mg/dL (8.4-10.2); Carbon Dioxide 25 mmol/L (22-30); Chloride 100 mmol/L (98-107); Glucose 93 mg/dL (74-99); Non-African American GFR(CKD) 39 (>60 ml/min/1.73 sqM); Potassium 3.7 mmol/L (3.5-5.1); Sodium 131 mmol/L (137-145); Total Bilirubin 0.8 mg/dL (0.2-1.3); Total Protein 4.9 g/dL (6.3-8.2)
[2022-10-09 05:22] LABS: HCT 26.1 % (39.0-53.0); HGB 8.8 gm/dL (13.0-17.5); MCH 31.6 pg (25.0-35.0); MCHC 33.7 g/dL (31.0-37.0); MCV 93.8 fL (80.0-100.0); Mean Platelet Volume 7.5; Platelet Count 115 k/uL (150-450); Poikilocytosis Slight; RBC 2.78 m/uL (4.30-5.90); RDW 15.3 % (11.5-15.5); WBC 8.2 k/uL (3.8-10.6)
[2022-10-09 06:28] LABS: Glucose,Whole Blood 86 mg/dL (70-110)
--- NOTE | 2022-10-09 07:20 | XR ---
EXAMINATION TYPE: XR chest 2V DATE OF EXAM: 10/09/2022 6:45 AM COMPARISON: Chest radiographs from 10/08/2022 TECHNIQUE: XR chest 2V Frontal and lateral views of the chest. CLINICAL INDICATION:Male, 72 years old with history of Postop cardiac surgery; FINDINGS: Lungs/Pleura: No evidence of focal consolidation or pneumothorax. Blunting of the costophrenic angles is present. Pulmonary vascularity: Mild pulmonary vascular congestion. Heart/mediastinum: Cardiomediastinal silhouette is enlarged and stable. Musculoskeletal: No acute osseous pathology. Midline sternotomy wires are noted. IMPRESSION: Postoperative changes with trace bilateral pleural effusions.
[2022-10-09] MEDS: INSULIN ASPART (NovoLOG) 100 UNIT/ML VIAL SQ SCH ×4 (07:36→20:43)
[2022-10-09] MEDS: PANTOPRAZOLE 40 MG TABLET PO SCH (07:38)
[2022-10-09] MEDS: LEVOTHYROXINE 75 MCG TAB PO SCH (07:38)
[2022-10-09] MEDS: METOPROLOL TARTRATE 25 MG TAB PO SCH ×4 (07:46→20:53)
[2022-10-09] MEDS: CLOPIDOGREL 75 MG TAB PO SCH (08:06)
[2022-10-09] MEDS: POTASSIUM CHLORIDE ER 20 MEQ TAB.ER PO SCH (08:06)
[2022-10-09] MEDS: FLUDROCORTISONE 0.1 MG TAB PO SCH (08:06)
[2022-10-09] MEDS: ATORVASTATIN 40 MG TAB PO SCH (08:06)
[2022-10-09] MEDS: CHOLECALCIFEROL 25 MCG (1000 IU) TABLET PO SCH (08:06)
[2022-10-09] MEDS: FUROSEMIDE 10 MG/ML 2 ML VIAL IV SCH ×2 (08:46→20:53)
--- NOTE | 2022-10-09 08:46 | P.PN ---
Subjective Progress Note Date: 10/09/22 Principal diagnosis: Coronary artery disease, severe mitral valve regurgitation. 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 POD #4 CABG 2 with MIGUEL to LAD, left radial artery to diagonal, mitral valve repair with artificial cords to P2 2 and annuloplasty with a 30 mm AnnuloFlex band. Ligation of the left atrial appendage with a 2 layer running closure of 3-0 Prolene. Endovascular harvest of the left radial artery. LASHAE by anesthesia. Postoperative acute blood loss anemia, expected given cardiopulmonary bypass and hemodilution. Paroxysmal atrial fibrillation, a known common occurrence after cardiac surgery, not a complication. The patient was seen and examined at his bedside today 10/09/2022 in the intensive care unit. He is sitting up to the bedside chair, is awake, alert, oriented 3 and is in no acute apparent distress. Denies any complaints of shortness of breath at this time, although was complaining of a headache and an episode of nausea. The patient reports he had 2 bowel movements last night. The patient is also complaining of some episodes of anxiety in which he states he has never experienced before. He was given Xanax 0.25 mg yesterday which he states somewhat helped. Left pleural chest tube was removed yesterday without incident. Oxygen saturations are 97% on room air and he is achieving 1850 mL on his incentive spirometry and encouragement. An episode of paroxysmal atrial fibrillation yesterday heart rate in the 130s, amiodarone drip was initiated per protocol and currently his bedside telemetry is showing his junctional rhythm heart rate 53 BPM. Atrial and ventricular epicardial pacemaker wires remain in place, his epicardial pacemaker wires are connected to a VAC up to bedside pacemaker generator on a VVI of 50 BPM. He remains hemodynamically stable and is currently on no inotropic or pressor support. He is continues on Lasix 20 mg IV twice a day, and his 24 urine output has been 2950 mL. Chest x-ray and laboratory results were reviewed. His been afebrile in the last 24 hours. He reports he has been up ambulating in the intensive care unit hallway 4 yesterday with standby assistance from nursing therapy staff. Objective - Vital Signs Vital signs: Vital Signs Temp 98.3 F 10/09/22 04:00 Pulse 53 L 10/09/22 07:00 Resp 21 10/09/22 07:00 BP 116/62 10/09/22 07:00 Pulse Ox 97 10/09/22 07:00 FiO2 50 10/05/22 18:30 Intake & Output 10/08/22 10/09/22 10/09/22 18:59 06:59 18:59 Intake Total 1550 207.2 Output Total 2100 900 0 Balance -550 -692.8 0 Weight 92.4 kg 92.7 kg Intake: Intake, IV Titration 207.2 Amount Amiodarone 360 mg In 207.2 Dextrose 5% in Water 200 ml @ 1 MG/MIN 34.533 mls/ hr IV .Q6H PRN Rx#: [id number] Oral 1550 Output: Chest Tube Drainage 50 Pleural Catheter Left 50 Urine 2050 900 0 Other: Voiding Method Indwelling Catheter Indwelling Catheter # Voids 1 1 # Bowel Movements 1 ABP, PAP, CO, CI - Last Documented Arterial Blood Pressure 100/49 Pulmonary Artery Pressure 23/10 Cardiac Output 5.5 Cardiac Index 2.6 - Exam CONSTITUTIONAL: Sitting up to the bedside chair in the intensive care unit, appears comfortable, cooperative, no apparent acute distress. HEENT: Neck is supple, no JVD, no lymphadenopathy. RESPIRATORY: Lungs sounds essentially clear throughout, diminished to his bilateral bases. Respirations are symmetrical and nonlabored. Currently on room air with oxygen saturations 97%. Able to achieve 1850 mL on his incentive spirometry. Strong cough. CARDIOVASCULAR: Regular rhythm and rate. S1 and S2 present, negative for S3, gallop or murmur. Sternum is stable. Palpable peripheral pulses bilaterally, No calf pain or tenderness noted. Heart hugger in place with patient demonstrating appropriate use. Knee-high NAVA hose and sequential compression devices in place to his bilateral lower extremities. GASTROINTESTINAL: Abdomen soft, nontender, nondistended. Active bowel sounds present 4 quadrants. Tolerating diet. Passing flatus. No guarding or rigidity. Bowel movement yesterday 2 on 10/08/2022 GENITOURINARY: Continues to void. Urine output 500 mL in the last 8 hours and 2950 mL output in the last 24 hours. INTEGUMENTARY: Skin is warm and dry with no evidence of clubbing or cyanosis. Midline sternal incision clean dry and well approximated, covered with dry intact dressing. Left arm radial artery harvest sites clean, dry and approximated. No drainage or redness is present. Small ecchymosis area to his left antecubital area, soft and nontender to touch. NEUROLOGIC: Cranial nerves II through XII intact. No focal deficits. MUSKULOSKELETAL: Able to move all extremities, strength equal bilaterally, generalized weakness. PSYCHIATRIC: Alert and oriented to person place and time, appropriate affect, intact judgment and insight. INVASIVE LINES AND TUBES: Atrial and ventricular epicardial pacemaker wires present, connected to back up bedside pacemaker generator, VVI mode of 50 BPM. - Allied health notes Allied health notes reviewed: nursing - Labs CBC & Chem 7: 10/09/22 04:40 10/09/22 04:40 Labs: Abnormal Lab Results - Last 24 Hours (Table) 10/08/22 10/08/22 10/08/22 Range/Units 13:17 16:37 19:31 RBC (4.30-5.90) m/uL Hgb (13.0-17.5) gm/dL Hct (39.0-53.0) % Plt Count (150-450) k/uL Sodium (137-145) mmol/L BUN (9-20) mg/dL Creatinine (0.66-1.25) mg/dL POC Glucose (mg/dL) 114 H 143 H (70-110) mg/dL Calcium (8.4-10.2) mg/dL Iron 15 L (65-175) UG/DL TIBC 211 L (228-460) UG/DL % Saturation 7.11 L (15.00-50.00) Transferrin 151.0 L (204.0-354.0) mg/dL AST (17-59) U/L Total Protein (6.3-8.2) g/dL Albumin (3.5-5.0) g/dL 10/09/22 10/09/22 Range/Units 04:40 04:40 RBC 2.78 L (4.30-5.90) m/uL Hgb 8.8 L (13.0-17.5) gm/dL Hct 26.1 L (39.0-53.0) % Plt Count 115 L (150-450) k/uL Sodium 131 L (137-145) mmol/L BUN 34 H (9-20) mg/dL Creatinine 1.71 H (0.66-1.25) mg/dL POC Glucose (mg/dL) (70-110) mg/dL Calcium 7.9 L (8.4-10.2) mg/dL Iron (65-175) UG/DL TIBC (228-460) UG/DL % Saturation (15.00-50.00) Transferrin (204.0-354.0) mg/dL AST 65 H (17-59) U/L Total Protein 4.9 L (6.3-8.2) g/dL Albumin 3.1 L (3.5-5.0) g/dL - Imaging and Cardiology Chest x-ray: report reviewed, image reviewed Assessment and Plan Assessment: Coronary artery disease, status post 2 vessel coronary artery bypass grafting Severe mitral valve regurgitation, status post mitral valve repair History of Chowan's disease, currently taking hydrocortisone 30 mg in the morning and 10 mg in the afternoon Hypertension Hyperlipidemia Chronic kidney disease, baseline creatinine 1.4-1.8 History of osteoarthritis History of skin cancer Lifetime nonsmoker Postoperative acute blood loss anemia, expected given cardiopulmonary bypass and hemodilution Paroxysmal atrial fibrillation, a known common occurrence after cardiac surgery, not a complication Plan: Continue to maximize medical therapy with statin and Plavix. Continue metoprolol tartrate 25 mg by mouth twice a day, we will increase as tolerated. Continue to hold aspirin as it is a contraindication as the patient has a documented ALLERGY. Encourage incentive spirometry use 10 times every hour while awake. Bronchodilators per pulmonology. Increase activity, ambulate as tolerated. PT/OT/cardiac rehab following. Will monitor daily labs and chest x-rays. Electrolyte replacement protocol. GI/DVT prophylaxis. Pain control with current medication regimen. Insulin management per internal medicine service. Patient is not a diabetic with preoperative hemoglobin A1c 4.9%, needs tight blood sugar control to prevent infection and promote healing, patient on chronic steroids. Keep atrial and ventricular epicardial pacemaker wires in place today, keep epicardial pacemaker wires connected to a backup bedside pacemaker generator on a VVI of 60 BPM. Continue to monitor strict in accurate I's and O's. Daily weights. Appropriate home meds resumed. Continue hydrocortisone, 30 mg by mouth in the morning and decreased to 10 mg by mouth in the afternoon starting today 10/09/2022. Lasix 20 mg IV twice a day. Continue Potassium chloride 20 mEq by mouth daily while on Lasix. Shower daily starting today. More recommendations to follow based on patient's clinical course. Time with Patient: Greater than 30
[2022-10-09] MEDS ORDERED: HYDROCORTISONE 10 MG TAB PO SCH (09:00)
[2022-10-09] MEDS: IPRATROPIUM-ALBUTEROL 3 ML NEB INHALATION SCH (09:56)
--- NOTE | 2022-10-09 10:56 | P.PN ---
Subjective Patient is seen for follow-up for CK D stage III a with baseline creatinine around 1.5 mg/dL. Patient is status post CABG 2 and mitral valve repair on 10/05/2022. Serum creatinine staying at about 1.7 mg/dL. Patient has had good urine output Currently maintained on Lasix 20 mg IV every 12 hours. Dose was decreased from every 8 hours yesterday. Chest tube has been discontinued. No significant shortness of breath however patient stated that he has had episodes of anxiety. Objective - Vital Signs Vital signs: Vital Signs Temp 98.8 F 10/09/22 08:00 Pulse 57 L 10/09/22 10:00 Resp 17 10/09/22 10:00 BP 120/46 10/09/22 10:00 Pulse Ox 96 10/09/22 10:00 FiO2 50 10/05/22 18:30 Intake & Output 10/08/22 10/09/22 10/09/22 18:59 06:59 18:59 Intake Total 1550 207.2 240 Output Total 2100 900 375 Balance -550 -692.8 -135 Weight 92.4 kg 92.7 kg Intake: Intake, IV Titration 207.2 Amount Amiodarone 360 mg In 207.2 Dextrose 5% in Water 200 ml @ 1 MG/MIN 34.533 mls/ hr IV .Q6H PRN Rx#: [id number] Oral 1550 240 Output: Chest Tube Drainage 50 Pleural Catheter Left 50 Urine 2050 900 375 Other: Voiding Method Indwelling Catheter Indwelling Catheter Toilet Urinal # Voids 1 1 1 # Bowel Movements 1 1 ABP, PAP, CO, CI - Last Documented Arterial Blood Pressure 100/49 Pulmonary Artery Pressure 23/10 Cardiac Output 5.5 Cardiac Index 2.6 - Exam Patient is awake, comfortable, no acute distress Alert oriented 3 Examination of the heart S1 and S2 Examination lungs bilateral breath sounds are heard [place] abdomen is soft nontender Examination lower extremity shows no significant edema WELFARE SPECIALIST exam grossly intact - Labs CBC & Chem 7: 10/09/22 04:40 10/09/22 04:40 Labs: Abnormal Lab Results - Last 24 Hours (Table) 10/08/22 10/08/22 10/08/22 Range/Units 13:17 16:37 19:31 RBC (4.30-5.90) m/uL Hgb (13.0-17.5) gm/dL Hct (39.0-53.0) % Plt Count (150-450) k/uL Sodium (137-145) mmol/L BUN (9-20) mg/dL Creatinine (0.66-1.25) mg/dL POC Glucose (mg/dL) 114 H 143 H (70-110) mg/dL Calcium (8.4-10.2) mg/dL Iron 15 L (65-175) UG/DL TIBC 211 L (228-460) UG/DL % Saturation 7.11 L (15.00-50.00) Transferrin 151.0 L (204.0-354.0) mg/dL AST (17-59) U/L Total Protein (6.3-8.2) g/dL Albumin (3.5-5.0) g/dL 10/09/22 10/09/22 Range/Units 04:40 04:40 RBC 2.78 L (4.30-5.90) m/uL Hgb 8.8 L (13.0-17.5) gm/dL Hct 26.1 L (39.0-53.0) % Plt Count 115 L (150-450) k/uL Sodium 131 L (137-145) mmol/L BUN 34 H (9-20) mg/dL Creatinine 1.71 H (0.66-1.25) mg/dL POC Glucose (mg/dL) (70-110) mg/dL Calcium 7.9 L (8.4-10.2) mg/dL Iron (65-175) UG/DL TIBC (228-460) UG/DL % Saturation (15.00-50.00) Transferrin (204.0-354.0) mg/dL AST 65 H (17-59) U/L Total Protein 4.9 L (6.3-8.2) g/dL Albumin 3.1 L (3.5-5.0) g/dL Assessment and Plan Assessment: 1. Acute kidney injury ATN currently nonoliguric, mostly hemodynamic. UA is completely benign on 10/02/2022 2. CK D stage III a secondary to nephrosclerosis with baseline creatinine around 1.5 mg/dL 3. Status post coronary artery bypass surgery 2 and mitral valve repair on 10/05/2022 4. Anemia multifactorial, rule out iron deficiency 5. 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 IV iron if okay with cardiothoracic surgery
[2022-10-09 11:39] LABS: Glucose,Whole Blood 95 mg/dL (70-110)
[2022-10-09] MEDS ORDERED: FUROSEMIDE 10 MG/ML 2 ML VIAL IV SCH (12:00)
[2022-10-09] MEDS: SODIUM FERRIC GLUCONAT-SUCROSE 125 MG in SODIUM CHLORIDE 0.9% 100 ML IVPB SCH (12:21)
--- NOTE | 2022-10-09 12:29 | P.PN ---
Subjective Progress Note Date: 10/09/22 Principal diagnosis: POD #4 CABG 2 with MIGUEL to LAD, left radial artery to diagonal, mitral valve repair with artificial cords to P2 2 and annuloplasty with a 30 mm AnnuloFlex band. Ligation of the left atrial appendage with a 2 layer running closure of 3-0 Prolene. Endovascular harvest of the left radial artery. LASHAE by anesthesia. POD #3 CABG 3 with MIGUEL to LAD, left radial artery to diagonal, mitral valve repair with artificial cords to P2 2 and annuloplasty with a 30 mm AnnuloFlex band. Ligation of the left atrial appendage with a 2 layer running closure of 3-0 Prolene. Endovascular harvest of the left radial artery. LASHAE by anesthesia. Patient was reevaluated today on 10/08/2022, remains in the ICU, not in any distress, he is on room air and O2 saturations 94-98%. Achieving over 1500 mL in incentive spirometry. Patient has normal sinus rhythm, chest x-ray is reassuring, small tiny left apical pneumothorax present but the chest tube on the left side is also present minimal basilar atelectasis is noted, no evidence of pneumonia. CBC is unremarkable, hemoglobin is 8.8 electrolytes are normal BUN is 52 creatinine 1.78, patient apparently sees Dr. Solorzano on a regular basis for his underlying chronic kidney disease. Reevaluated today on 10/09/22, patient is postoperative day #4.CABG 2 with MIGUEL to LAD, left radial artery to diagonal, mitral valve repair with artificial cords to P2 2 and annuloplasty with a 30 mm AnnuloFlex band. Ligation of the left atrial appendage with a 2 layer running closure of 3-0 Prolene. Endovascular harvest of the left radial artery. LASHAE by anesthesia. Patient seems to be doing fairly well, no major issues, not on any major drips, he did have an episode of anxiety last night and he responded well to Xanax. His left sided chest tube was removed yesterday without any incident. Patient remains on room air, doing extremely well with incentive spirometry ACHIEVING 0297-7902 mL. Patient is hemodynamically stable, not requiring any inotropes or any pressors. Chest x-ray showed mostly postoperative changes with small bilateral pleural effusions. Could not appreciate any pneumothorax. Labs today are un remarkable except for creatinine 1.71, slightly better compared to yesterday. Objective - Vital Signs Vital signs: Vital Signs Temp 98.8 F 10/09/22 08:00 Pulse 56 L 10/09/22 11:00 Resp 18 10/09/22 11:00 BP 112/61 10/09/22 11:00 Pulse Ox 98 10/09/22 11:00 FiO2 50 10/05/22 18:30 Intake & Output 10/08/22 10/09/22 10/09/22 18:59 06:59 18:59 Intake Total 1550 207.2 240 Output Total 2100 900 375 Balance -550 -692.8 -135 Weight 92.4 kg 92.7 kg Intake: Intake, IV Titration 207.2 Amount Amiodarone 360 mg In 207.2 Dextrose 5% in Water 200 ml @ 1 MG/MIN 34.533 mls/ hr IV .Q6H PRN Rx#: [id number] Oral 1550 240 Output: Chest Tube Drainage 50 Pleural Catheter Left 50 Urine 2050 900 375 Other: Voiding Method Indwelling Catheter Indwelling Catheter Toilet Urinal # Voids 1 1 1 # Bowel Movements 1 1 ABP, PAP, CO, CI - Last Documented Arterial Blood Pressure 100/49 Pulmonary Artery Pressure 23/10 Cardiac Output 5.5 Cardiac Index 2.6 - Exam GENERAL: Revealed a 72-year-old white male in no distress, on room air. HEENT: The left, EOMI, nonicteric, no neck masses no JVD. CARDIOVASCULAR: S1 and S2 present. No murmurs, rubs, or gallops. PULMONARY: Chest is clear to auscultation, no wheezing , no crackles. ABDOMENsoft nontender no megaly no rebound no guarding. MUSCULOSKELETAL: No joint swelling or deformity. EXTREMITIES: No cyanosis, clubbing, or pedal edema. NEUROLOGICAL: Gross neurological examination did not reveal any focal deficits. SKIN: No rashes. no petechiae. - Labs CBC & Chem 7: 10/09/22 04:40 10/09/22 04:40 Labs: Abnormal Lab Results - Last 24 Hours (Table) 10/08/22 10/08/22 10/08/22 Range/Units 13:17 16:37 19:31 RBC (4.30-5.90) m/uL Hgb (13.0-17.5) gm/dL Hct (39.0-53.0) % Plt Count (150-450) k/uL Sodium (137-145) mmol/L BUN (9-20) mg/dL Creatinine (0.66-1.25) mg/dL POC Glucose (mg/dL) 114 H 143 H (70-110) mg/dL Calcium (8.4-10.2) mg/dL Iron 15 L (65-175) UG/DL TIBC 211 L (228-460) UG/DL % Saturation 7.11 L (15.00-50.00) Transferrin 151.0 L (204.0-354.0) mg/dL AST (17-59) U/L Total Protein (6.3-8.2) g/dL Albumin (3.5-5.0) g/dL 10/09/22 10/09/22 Range/Units 04:40 04:40 RBC 2.78 L (4.30-5.90) m/uL Hgb 8.8 L (13.0-17.5) gm/dL Hct 26.1 L (39.0-53.0) % Plt Count 115 L (150-450) k/uL Sodium 131 L (137-145) mmol/L BUN 34 H (9-20) mg/dL Creatinine 1.71 H (0.66-1.25) mg/dL POC Glucose (mg/dL) (70-110) mg/dL Calcium 7.9 L (8.4-10.2) mg/dL Iron (65-175) UG/DL TIBC (228-460) UG/DL % Saturation (15.00-50.00) Transferrin (204.0-354.0) mg/dL AST 65 H (17-59) U/L Total Protein 4.9 L (6.3-8.2) g/dL Albumin 3.1 L (3.5-5.0) g/dL Assessment and Plan Assessment: Impression:CABG 2 with MIGUEL to LAD, left radial artery to diagonal, mitral mike ve repair with artificial cords to P2 2 and annuloplasty with a 30 mm AnnuloFlex band. The patient is currently postop day #4 Postoperative left apical pneumothorax, small, expected. History of mitral valve regurgitation, status post mitral valve repair History of El's disease, on hydrocortisone. Hypothyroidism Benign essential hypertension Dyslipidemia Chronic kidney disease stage III, follows on a regular basis with nephrology Type 2 diabetes, on insulin. Lifetime nonsmoker Postoperative anemia, expected secondary to blood loss. Recommendation: Continue incentive spirometry Continue oral hydrocortisone Continue ambulation Continue Plavix and beta blockers as well as statins, maximize medical therapy. Continue to hold aspirin as the patient had documented ALLERGY Continue close follow-up on renal status and nephrology to evaluate. Diurese as needed We will continue to follow Time with Patient: Less than 30
--- NOTE | 2022-10-09 13:09 | PN ---
PROGRESS NOTE SUBJECTIVE: Jose Francisco is a 72-year-old gentleman who is admitted to hospital electively for mitral valve repair and 2-vessel bypass surgery. He continues to feel poorly, primarily complaining of nausea, headache, and not feeling well. He is in junctional rhythm with heart rates in the 50s, stable hemodynamically, blood pressure is normal. Renal functions are elevated, but are stable at 1.7. Potassium is 3.7, hemoglobin is low at 8.8. OBJECTIVE: GENERAL: Comfortable at rest. VITAL SIGNS: Stable. CHEST: Reveals diminished air entry at the bases. HEART: Reveals first and second heart sounds. No gallop. ABDOMEN: Soft. EXTREMITIES: Reveal mild edema. Peripheral pulses are felt. ASSESSMENT AND PLAN: 1. Coronary artery disease, status post bypass surgery. 2. Mitral regurgitation, status post mitral valve repair. 3. Hyperadrenalism. PLAN: Continue the hydrocortisone. Hold the Lopressor for heart rate less than 60 and avoid it until patient resumes sinus rhythm. MMODL / IJN: [id number] /
[2022-10-09 16:12] LABS: Glucose,Whole Blood 110 mg/dL (70-110)
[2022-10-09] MEDS: HYDROCORTISONE 10 MG TAB PO SCH (16:43)
[2022-10-09 20:11] LABS: Glucose,Whole Blood 119 mg/dL (70-110)
[2022-10-09] MEDS: SENNOSIDES-DOCUSATE SODIUM 1 EACH TAB PO SCH (20:47)
--- NOTE | 2022-10-09 22:26 | P.PN ---
Subjective This is a pleasant 72 years old male with past medical history of Hypertension, hypothyroidism, El disease Patient with a known coronary artery disease underwent 2 vessel bypass surgery and mitral valve repair Patient currently resting comfortably with no complaint Patient chest pain and dyspnea CONTROLLED Hemodynamically stable None showing mild anemia with hemoglobin 9.1 which is expected Platelet count is 87-95. INR is 1.1 Creatinine 1.5 which is baseline 1.4-1.7 Chest x-ray: No acute process. Check hemoglobin A1c on 10/02/2022 was 4.9 Patient tolerated lying comfortable in the chair, chest tube in place. 10/07/2022 Patient clinically doing well Denies chest pain or dyspnea, no new complaint Hemoglobin 9.4, creatinine 1.7 which is close to baseline Patient was started on IV Lasix 20 mg 3 times a day and also on metoprolol and P lavix burst primary team 10/08/2022 Patient was complaining of from some headache this morning about 6/10 with no weakness numbness or confusion, he wants only Tylenol. Postoperative from some chest pain and stomach upset which is mild and improving. He is hemodynamically stable Creatinine is mildly elevated at 1.7 compared to baseline of 1.3-1.6, has some elements of acute kidney injury, nephrology team were consulted Patient remains on IV Lasix. Also he is on home dose of cooperative, metoprolol 25 mg and Plavix 10/09/2022 Patient improving slowly and gradually Hemoglobin 8.8, creatinine is stable at 1.7 Patient still on Plavix, IV Lasix lower frequency twice a day at 20 mg intravenously Also patient on metoprolol 25 mg Objective - Vital Signs Vital signs: Vital Signs Temp 98.8 F 10/09/22 08:00 Pulse 56 L 10/09/22 11:00 Resp 18 10/09/22 11:00 BP 112/61 10/09/22 11:00 Pulse Ox 98 10/09/22 11:00 FiO2 50 10/05/22 18:30 Intake & Output 10/08/22 10/09/22 10/09/22 18:59 06:59 18:59 Intake Total 1550 207.2 460 Output Total 2100 900 375 Balance -550 -692.8 85 Weight 92.4 kg 92.7 kg Intake: Intake, IV Titration 207.2 100 Amount Amiodarone 360 mg In 207.2 Dextrose 5% in Water 200 ml @ 1 MG/MIN 34.533 mls/ hr IV .Q6H PRN Rx#: [id number] Sodium Ferric Gluconat- 100 Sucrose 125 mg In Sodium Chloride 0.9% 100 ml @ 100 mls/hr IVPB DAILY ALIYA Rx#:[id number] Oral 1550 360 Output: Chest Tube Drainage 50 Pleural Catheter Left 50 Urine 2050 900 375 Other: Voiding Method Indwelling Catheter Indwelling Catheter Toilet Urinal # Voids 1 1 1 # Bowel Movements 1 1 ABP, PAP, CO, CI - Last Documented Arterial Blood Pressure 100/49 Pulmonary Artery Pressure 23/10 Cardiac Output 5.5 Cardiac Index 2.6 - Labs CBC & Chem 7: 10/09/22 04:40 10/09/22 04:40 Labs: Abnormal Lab Results - Last 24 Hours (Table) 10/08/22 10/08/22 10/08/22 Range/Units 13:17 16:37 19:31 RBC (4.30-5.90) m/uL Hgb (13.0-17.5) gm/dL Hct (39.0-53.0) % Plt Count (150-450) k/uL Sodium (137-145) mmol/L BUN (9-20) mg/dL Creatinine (0.66-1.25) mg/dL POC Glucose (mg/dL) 114 H 143 H (70-110) mg/dL Calcium (8.4-10.2) mg/dL Iron 15 L (65-175) UG/DL TIBC 211 L (228-460) UG/DL % Saturation 7.11 L (15.00-50.00) Transferrin 151.0 L (204.0-354.0) mg/dL AST (17-59) U/L Total Protein (6.3-8.2) g/dL Albumin (3.5-5.0) g/dL 10/09/22 10/09/22 Range/Units 04:40 04:40 RBC 2.78 L (4.30-5.90) m/uL Hgb 8.8 L (13.0-17.5) gm/dL Hct 26.1 L (39.0-53.0) % Plt Count 115 L (150-450) k/uL Sodium 131 L (137-145) mmol/L BUN 34 H (9-20) mg/dL Creatinine 1.71 H (0.66-1.25) mg/dL POC Glucose (mg/dL) (70-110) mg/dL Calcium 7.9 L (8.4-10.2) mg/dL Iron (65-175) UG/DL TIBC (228-460) UG/DL % Saturation (15.00-50.00) Transferrin (204.0-354.0) mg/dL AST 65 H (17-59) U/L Total Protein 4.9 L (6.3-8.2) g/dL Albumin 3.1 L (3.5-5.0) g/dL Assessment and Plan Assessment: Coronary artery disease, status post 2 vessel CABG on 10/05 Severe mitral regurgitation status post atrial valve repair Hypothyroidism El disease Hypertension Expected postop anemia Mild thrombocytopenia chronic kidney disease stage III Plan: Continue with IV Lasix Continue with Cortef current dose Pain management Continue with metoprolol Cardiology consult Pulmonary consult nephrology consult Cardiothoracic surgery team primary team on the case Labs and medication were reviewed.. Continue same treatment. Continue with symptomatic treatment. Resume home medication. Monitor labs and vitals. DVT and GI prophylaxis. Further recommendations as per clinical course of the patient DVT prophylaxis: Subcutaneous heparin GI Prophylaxis: Ppi Prognosis is guarded
[2022-10-10 04:22] LABS: HCT 25.5 % (39.0-53.0); HGB 8.9 gm/dL (13.0-17.5); MCH 32.3 pg (25.0-35.0); MCV 92.3 fL (80.0-100.0); Mean Platelet Volume 7.2; Platelet Count 140 k/uL (150-450); Poikilocytosis Slight; RBC 2.77 m/uL (4.30-5.90); RDW 15.4 % (11.5-15.5); WBC 7.2 k/uL (3.8-10.6)
[2022-10-10 04:38] LABS: ALT 37 U/L (4-49); AST 40 U/L (17-59); African American GFR (CKD) 39 (>60 ml/min/1.73 sqM); Albumin 3.1 g/dL (3.5-5.0); Alkaline Phosphatase 80 U/L (38-126); Anion Gap 8 mmol/L; Blood Urea Nitrogen 33 mg/dL (9-20); Calcium 7.8 mg/dL (8.4-10.2); Carbon Dioxide 24 mmol/L (22-30); Chloride 100 mmol/L (98-107); Glucose 85 mg/dL (74-99); Non-African American GFR(CKD) 34 (>60 ml/min/1.73 sqM); Potassium 3.7 mmol/L (3.5-5.1); Sodium 132 mmol/L (137-145); Total Bilirubin 0.8 mg/dL (0.2-1.3)
[2022-10-10 06:36] LABS: Glucose,Whole Blood 83 mg/dL (70-110)
[2022-10-10] MEDS ORDERED: SENNOSIDES-DOCUSATE SODIUM 1 EACH TAB PO PRN (06:57)
[2022-10-10] MEDS: INSULIN ASPART (NovoLOG) 100 UNIT/ML VIAL SQ SCH ×4 (07:08→21:04)
--- NOTE | 2022-10-10 07:10 | XR ---
EXAMINATION TYPE: XR chest 2V DATE OF EXAM: 10/10/2022 6:23 AM COMPARISON: Chest radiograph from one day prior. TECHNIQUE: XR chest 2V Frontal and lateral views of the chest. CLINICAL INDICATION:Male, 72 years old with history of Postoperative cardiac surgery; FINDINGS: Lungs/Pleura: No evidence of focal consolidation or pneumothorax. Blunting of the costophrenic angles is present. Pulmonary vascularity: Pulmonary vascular congestion. Heart/mediastinum: Cardiomediastinal silhouette is unremarkable. Musculoskeletal: No acute osseous pathology. Midline sternotomy wires are noted. IMPRESSION: Similar trace bilateral pleural effusions with mild pulmonary vascular congestion.
[2022-10-10] MEDS: PANTOPRAZOLE 40 MG TABLET PO SCH (07:11)
[2022-10-10] MEDS: LEVOTHYROXINE 75 MCG TAB PO SCH (07:11)
--- NOTE | 2022-10-10 07:29 | P.PN ---
Subjective Progress Note Date: 10/10/22 Principal diagnosis: Coronary artery disease, severe mitral valve regurgitation. Previous medical history of [place]'s disease, hypertension, hyperlipidemia, chronic kidney disease, history of skin cancer, osteoarthritis, remote history of pneumonia, and lifetime nonsmoker. POD #5 CABG 2 with MIGUEL to LAD, left radial artery to diagonal, mitral valve repair with artificial cords to P2 2 and annuloplasty with a 30 mm AnnuloFlex band. Ligation of the left atrial appendage with a 2 layer running closure of 3-0 Prolene. Endovascular harvest of the left radial artery. LASHAE by anesthesia. Postoperative acute blood loss anemia, expected given cardiopulmonary bypass and hemodilution. Paroxysmal atrial fibrillation, a known common occurrence after cardiac surgery, not a complication. The patient was seen and examined this morning sitting up in a recliner in the intensive care unit in no acute distress. Does complain of some post surgical pain but has not asked for any pain medication, denies shortness of breath. States he does feel better than postoperative day #1. He has been ambulatory in the hallway. Remains in sinus rhythm with heart rate in the 60s, blood pressure stable. Currently on room air with oxygen saturation in the high 90s. Labs, chest x-ray reviewed. Transfer orders placed yesterday for stepdown unit, no bed available. No other new concerns. Objective - Vital Signs Vital signs: Vital Signs Temp 97.8 F 10/10/22 04:00 Pulse 61 10/10/22 04:00 Resp 16 10/10/22 04:00 BP 117/58 10/10/22 04:00 Pulse Ox 99 10/10/22 04:00 FiO2 50 10/05/22 18:30 Intake & Output 10/09/22 10/09/22 10/10/22 06:59 18:59 06:59 Intake Total 207.2 460 540 Output Total 900 650 900 Balance -692.8 -190 -360 Weight 92.7 kg 91.3 kg Intake: Intake, IV Titration 207.2 100 Amount Amiodarone 360 mg In 207.2 Dextrose 5% in Water 200 ml @ 1 MG/MIN 34.533 mls/ hr IV .Q6H PRN Rx#: [id number] Sodium Ferric Gluconat- 100 Sucrose 125 mg In Sodium Chloride 0.9% 100 ml @ 100 mls/hr IVPB DAILY ALIYA Rx#:[id number] Oral 360 540 Output: Urine 900 650 900 Other: Voiding Method Indwelling Catheter Toilet Toilet Urinal # Voids 1 1 1 # Bowel Movements 1 1 ABP, PAP, CO, CI - Last Documented Arterial Blood Pressure 100/49 Pulmonary Artery Pressure 23/10 Cardiac Output 5.5 Cardiac Index 2.6 - Exam CONSTITUTIONAL: Appears comfortable, cooperative, no acute distress RESPIRATORY: Lungs sounds clear bilaterally. Respirations even, nonlabored. Currently on room air with oxygen saturation 99%. Able to achieve 1500 mL on incentive spirometry. Strong cough. CARDIOVASCULAR: S1, S2 present. Regular rate and rhythm, sinus rhythm on telemetry. Sternum stable. Palpable peripheral pulses bilaterally. No edema present. No calf pain or tenderness noted. Heart hugger in place with patient demonstrating appropriate use. Antiembolism stockings, SCDs present. GASTROINTESTINAL: Abdomen soft, nontender, nondistended. Active bowel sounds present 4 quadrants. Tolerating diet. Positive bowel movement 10/09/22 GENITOURINARY: Continues to void. Output 1550 mL in the last 24 hours INTEGUMENTARY: Skin is warm and dry with evidence of good perfusion. Anterior chest incision well approximated and covered with dry intact dressing. Left radial artery harvest site well approximated without redness or drainage. NEUROLOGIC: Cranial nerves II through XII intact MUSKULOSKELETAL: Able to move all extremities, strength equal bilaterally, gait normal PSYCHIATRIC: Alert and oriented to person place and time, appropriate affect, intact judgment and insight INVASIVE LINES AND TUBES: A/V epicardial pacemaker wires present, grounded - Allied health notes Allied health notes reviewed: nursing - Labs CBC & Chem 7: 10/10/22 03:55 10/10/22 03:55 Labs: Abnormal Lab Results - Last 24 Hours (Table) 10/09/22 10/10/22 10/10/22 Range/Units 20:09 03:55 03:55 RBC 2.77 L (4.30-5.90) m/uL Hgb 8.9 L (13.0-17.5) gm/dL Hct 25.5 L (39.0-53.0) % Plt Count 140 L (150-450) k/uL Sodium 132 L (137-145) mmol/L BUN 33 H (9-20) mg/dL Creatinine 1.95 H (0.66-1.25) mg/dL POC Glucose (mg/dL) 119 H (70-110) mg/dL Calcium 7.8 L (8.4-10.2) mg/dL Total Protein 5.0 L (6.3-8.2) g/dL Albumin 3.1 L (3.5-5.0) g/dL - Imaging and Cardiology Chest x-ray: report reviewed, image reviewed Assessment and Plan Assessment: Coronary artery disease, status post 2 vessel CABG Severe mitral valve regurgitation, status post mitral valve repair History of El's disease, on hydrocortisone and Florinef outpatient Hypertension Hyperlipidemia, cholesterol 197, LDL 130 Chronic kidney disease, baseline creatinine 1.4-1.8 History of osteoarthritis History of skin cancer Lifetime nonsmoker Remote history of pneumonia Postoperative acute blood loss anemia, expected Paroxysmal atrial fibrillation, status post ligation of the left atrial appendage, currently sinus rhythm Plan: Continue to maximize medical therapy with statin, Plavix, beta declan. Will increase beta declan as tolerated Continue to hold aspirin as it is a contraindication as the patient has a documented ALLERGY Encourage incentive spirometry use 10 times every hour while awake. Bronchodilators per pulmonology Increase activity, ambulate as tolerated. PT/OT/cardiac rehab following. Patient to shower daily Will monitor daily labs and chest x-rays. Electrolyte replacement protocol. Continue Lasix, potassium GI/DVT prophylaxis Pain control with current medication regimen, patient encouraged asked for pain medication minimum 3 times daily Insulin management per internal medicine service. Patient is not a diabetic with preoperative hemoglobin A1c 4.9%, needs tight blood sugar control to prevent infection and promote healing, patient on chronic steroids Likely will discontinue epicardial pacemaker wires later today. Patient to remain on bedrest for 1 hour post-wire removal Strict in accurate I/O, daily weights Will wean hydrocortisone to patient's home dose Transfer orders placed yesterday, patient may be transfer to stepdown unit when bed available Discharge planning in progress. Anticipate discharge to home with home care in the next 24-48 hours More recommendations to follow based on patient's clinical course
[2022-10-10] MEDS ORDERED: HYDROCORTISONE 10 MG TAB PO SCH (09:00)
--- NOTE | 2022-10-10 09:35 | PN ---
PROGRESS NOTE SUBJECTIVE: A 72-year-old gentleman who underwent mitral valve repair with 2-vessel bypass. Today is postop day #5. He is feeling much better today. Today, his nausea has improved. Remains in sinus rhythm. OBJECTIVE: VITAL SIGNS: Afebrile. Vital signs are stable. NECK: There is no jugular venous distention. Carotid upstroke is normal. There is no bruit. CHEST: Good air entry bilaterally. HEART: Exam reveals first and second heart sounds. No gallop. No murmur. ABDOMEN: Soft. EXTREMITIES: Did not reveal any edema. Peripheral pulses are felt. LABORATORY DATA: Labs show hemoglobin of 8.9. Potassium is 3.7, creatinine is 1.9. ASSESSMENT: Coronary artery disease status post coronary artery bypass graft, mitral regurgitation status post mitral valve repair, history of adrenal insufficiency. PLAN: The patient will continue the Lipitor, Lasix, Lopressor 25 b.i.d. The patient was in junctional rhythm yesterday which has since resolved. MMODL / IJN: [id number] /
[2022-10-10] MEDS: HEPARIN SODIUM,PORCINE/PF 5,000 UNIT/0.5 ML SYRINGE SQ SCH ×3 (09:38→23:35)
[2022-10-10] MEDS: ACETAMINOPHEN TAB 500 MG TAB PO PRN ×3 (09:40→21:04)
[2022-10-10] MEDS: METOPROLOL TARTRATE 25 MG TAB PO SCH ×2 (09:41→21:04)
[2022-10-10] MEDS: CLOPIDOGREL 75 MG TAB PO SCH (09:41)
[2022-10-10] MEDS: FUROSEMIDE 20 MG TAB PO SCH (09:41)
[2022-10-10] MEDS: FLUDROCORTISONE 0.1 MG TAB PO SCH (09:41)
[2022-10-10] MEDS: SODIUM FERRIC GLUCONAT-SUCROSE 125 MG in SODIUM CHLORIDE 0.9% 100 ML IVPB SCH (09:41)
[2022-10-10] MEDS: CHOLECALCIFEROL 25 MCG (1000 IU) TABLET PO SCH (09:41)
[2022-10-10] MEDS: POTASSIUM CHLORIDE ER 20 MEQ TAB.ER PO SCH ×2 (09:41→21:06)
[2022-10-10] MEDS: ATORVASTATIN 40 MG TAB PO SCH (09:41)
--- NOTE | 2022-10-10 11:05 | P.PN ---
Subjective Progress Note Date: 10/10/22 Principal diagnosis: POD #5 CABG 2 with MIGUEL to LAD, left radial artery to diagonal, mitral valve repair with artificial cords to P2 2 and annuloplasty with a 30 mm AnnuloFlex band. Ligation of the left atrial appendage with a 2 layer running closure of 3-0 Prolene. Endovascular harvest of the left radial artery. LASHAE by anesthesia. POD #3 CABG 3 with MIGUEL to LAD, left radial artery to diagonal, mitral valve repair with artificial cords to P2 2 and annuloplasty with a 30 mm AnnuloFlex band. Ligation of the left atrial appendage with a 2 layer running closure of 3-0 Prolene. Endovascular harvest of the left radial artery. LASHAE by anesthesia. Patient was reevaluated today on 10/08/2022, remains in the ICU, not in any distress, he is on room air and O2 saturations 94-98%. Achieving over 1500 mL in incentive spirometry. Patient has normal sinus rhythm, chest x-ray is reassuring, small tiny left apical pneumothorax present but the chest tube on the left side is also present minimal basilar atelectasis is noted, no evidence of pneumonia. CBC is unremarkable, hemoglobin is 8.8 electrolytes are normal BUN is 52 creatinine 1.78, patient apparently sees Dr. Solorzano on a regular basis for his underlying chronic kidney disease. Reevaluated today on 10/09/22, patient is postoperative day #4.CABG 2 with MIGUEL to LAD, left radial artery to diagonal, mitral valve repair with artificial cords to P2 2 and annuloplasty with a 30 mm AnnuloFlex band. Ligation of the left atrial appendage with a 2 layer running closure of 3-0 Prolene. Endovascular harvest of the left radial artery. LASHAE by anesthesia. Patient seems to be doing fairly well, no major issues, not on any major drips, he did have an episode of anxiety last night and he responded well to Xanax. His left sided chest tube was removed yesterday without any incident. Patient remains on room air, doing extremely well with incentive spirometry ACHIEVING 4042-6398 mL. Patient is hemodynamically stable, not requiring any inotropes or any pressors. Chest x-ray showed mostly postoperative changes with small bilateral pleural effusions. Could not appreciate any pneumothorax. Labs today are un remarkable except for creatinine 1.71, slightly better compared to yesterday. Reevaluated today on 10/10/2022, patient is now postoperative day #5 overall the patient is doing great, relatively asymptomatic except for some postsurgical pain, denies any shortness of breath, he is presently on room air. Ambulating intermittently in the hallway. Hemodynamically stable, blood pressure is stable. Chest x-ray is reassuring. Overall the patient is doing extremely well. Objective - Vital Signs Vital signs: Vital Signs Temp 97.8 F 10/10/22 04:00 Pulse 61 10/10/22 04:00 Resp 16 10/10/22 04:00 BP 117/58 10/10/22 04:00 Pulse Ox 94 L 10/10/22 08:16 FiO2 50 10/05/22 18:30 Intake & Output 10/09/22 10/10/22 10/10/22 18:59 06:59 18:59 Intake Total 460 540 Output Total 650 900 Balance -190 -360 Weight 92.7 kg 91.3 kg Intake: Intake, IV Titration 100 Amount Sodium Ferric Gluconat- 100 Sucrose 125 mg In Sodium Chloride 0.9% 100 ml @ 100 mls/hr IVPB DAILY [facility] Rx#:[id number] Oral 360 540 Output: Urine 650 900 Other: Voiding Method Toilet Toilet Urinal # Voids 1 1 # Bowel Movements 1 ABP, PAP, CO, CI - Last Documented Arterial Blood Pressure 100/49 Pulmonary Artery Pressure 23/10 Cardiac Output 5.5 Cardiac Index 2.6 - Exam GENERAL: Revealed a 72-year-old white male in no distress, on room air. HEENT: The left, EOMI, nonicteric, no neck masses no JVD. CARDIOVASCULAR: S1 and S2 present. No murmurs, rubs, or gallops. PULMONARY: Chest is clear to auscultation, no wheezing , no crackles. ABDOMENsoft nontender no megaly no rebound no guarding. MUSCULOSKELETAL: No joint swelling or deformity. EXTREMITIES: No cyanosis, clubbing, or pedal edema. NEUROLOGICAL: Gross neurological examination did not reveal any focal deficits. SKIN: No rashes. no petechiae. - Labs CBC & Chem 7: 10/10/22 03:55 10/10/22 03:55 Labs: Abnormal Lab Results - Last 24 Hours (Table) 06/27/23 06/28/23 06/28/23 Range/Units 20:09 03:55 03:55 RBC 2.77 L (4.30-5.90) m/uL Hgb 8.9 L (13.0-17.5) gm/dL Hct 25.5 L (39.0-53.0) % Plt Count 140 L (150-450) k/uL Sodium 132 L (137-145) mmol/L BUN 33 H (9-20) mg/dL Creatinine 1.95 H (0.66-1.25) mg/dL POC Glucose (mg/dL) 119 H (70-110) mg/dL Calcium 7.8 L (8.4-10.2) mg/dL Total Protein 5.0 L (6.3-8.2) g/dL Albumin 3.1 L (3.5-5.0) g/dL Assessment and Plan Assessment: Impression:CABG 2 with MIGUEL to LAD, left radial artery to diagonal, mitral valve repair with artificial cords to P2 2 and annuloplasty with a 30 mm AnnuloFlex band. The patient is currently postop day #5 Postoperative left apical pneumothorax, small, expected. Resolved based on chest x-ray today. History of mitral valve regurgitation, status post mitral valve repair History of Attala's disease, on hydrocortisone. Hypothyroidism Benign essential hypertension Dyslipidemia Chronic kidney disease stage III, follows on a regular basis with nephrology Type 2 diabetes, on insulin. Lifetime nonsmoker Postoperative anemia, expected secondary to blood loss. Recommendation: Continue incentive spirometry Continue oral hydrocortisone Continue ambulation Continue Plavix and beta blockers as well as statins, maximize medical therapy. Continue to hold aspirin as the patient had documented ALLERGY Likely discharge home in the next 24 hours We will continue to follow Time with Patient: Less than 30
[2022-10-10 11:36] LABS: Glucose,Whole Blood 101 mg/dL (70-110)
[2022-10-10 12:04] LABS: Glucose,Whole Blood 100 mg/dL (70-110)
[2022-10-10 16:02] LABS: Glucose,Whole Blood 119 mg/dL (70-110)
[2022-10-10] MEDS: HYDROCORTISONE 10 MG TAB PO SCH (18:31)
--- NOTE | 2022-10-10 20:16 | P.PN ---
Subjective This is a pleasant 72 years old male with past medical history of Hypertension, hypothyroidism, El disease Patient with a known coronary artery disease underwent 2 vessel bypass surgery and mitral valve repair Patient currently resting comfortably with no complaint Patient chest pain and dyspnea CONTROLLED Hemodynamically stable None showing mild anemia with hemoglobin 9.1 which is expected Platelet count is 87-95. INR is 1.1 Creatinine 1.5 which is baseline 1.4-1.7 Chest x-ray: No acute process. Check hemoglobin A1c on 10/02/2022 was 4.9 Patient tolerated lying comfortable in the chair, chest tube in place. 10/07/2022 Patient clinically doing well Denies chest pain or dyspnea, no new complaint Hemoglobin 9.4, creatinine 1.7 which is close to baseline Patient was started on IV Lasix 20 mg 3 times a day and also on metoprolol and P lavix burst primary team 10/08/2022 Patient was complaining of from some headache this morning about 6/10 with no weakness numbness or confusion, he wants only Tylenol. Postoperative from some chest pain and stomach upset which is mild and improving. He is hemodynamically stable Creatinine is mildly elevated at 1.7 compared to baseline of 1.3-1.6, has some elements of acute kidney injury, nephrology team were consulted Patient remains on IV Lasix. Also he is on home dose of cooperative, metoprolol 25 mg and Plavix 10/09/2022 Patient improving slowly and gradually Hemoglobin 8.8, creatinine is stable at 1.7 Patient still on Plavix, IV Lasix lower frequency twice a day at 20 mg intravenously Also patient on metoprolol 25 mg 10/10/2022 Patient continued to improve, his sitting in chair relaxed, denies chest pain headache abdominal pain or other symptoms His been told he might be discharged home tomorrow and he thinks this is appropriate. Hemoglobin 8.9, repeat went up to 1.9, mild elevation secondary to diuresis and IV Lasix was switched to oral dose 20 mg daily Possible discharge in 24 hours Objective - Vital Signs Vital signs: Vital Signs Temp 98.0 F 10/10/22 12:00 Pulse 59 L 10/10/22 12:00 Resp 22 10/10/22 12:00 BP 113/56 10/10/22 12:00 Pulse Ox 99 10/10/22 12:00 FiO2 50 10/05/22 18:30 Intake & Output 10/09/22 10/10/22 10/10/22 18:59 06:59 18:59 Intake Total 460 540 300 Output Total 650 900 Balance -190 -360 300 Weight 92.7 kg 91.3 kg Intake: Intake, IV Titration 100 Amount Sodium Ferric Gluconat- 100 Sucrose 125 mg In Sodium Chloride 0.9% 100 ml @ 100 mls/hr IVPB DAILY [facility] Rx#:[id number] Oral 360 540 300 Output: Urine 650 900 Other: Voiding Method Toilet Toilet Toilet Urinal # Voids 1 1 2 # Bowel Movements 1 1 ABP, PAP, CO, CI - Last Documented Arterial Blood Pressure 100/49 Pulmonary Artery Pressure 23/10 Cardiac Output 5.5 Cardiac Index 2.6 - Exam GENERAL: The patient is alert and oriented x3, not in any acute distress. Well developed, well nourished. HEENT: Pupils are round and equally reacting to light. EOMI. No scleral icterus. No conjunctival pallor. Normocephalic, atraumatic. No pharyngeal erythema. No thyromegaly. CARDIOVASCULAR: S1 and S2 present. No murmurs, rubs, or gallops. PULMONARY: Chest is clear to auscultation, no wheezing , no crackles. ABDOMEN: Soft, nontender, nondistended, normoactive bowel sounds. No palpable organomegaly. MUSCULOSKELETAL: No joint swelling or deformity. EXTREMITIES: No cyanosis, clubbing, or pedal edema. NEUROLOGICAL: Gross neurological examination did not reveal any focal deficits. SKIN: No rashes. no petechiae. - Labs CBC & Chem 7: 10/10/22 03:55 10/10/22 03:55 Labs: Abnormal Lab Results - Last 24 Hours (Table) 10/09/22 10/10/22 10/10/22 Range/Units 20:09 03:55 03:55 RBC 2.77 L (4.30-5.90) m/uL Hgb 8.9 L (13.0-17.5) gm/dL Hct 25.5 L (39.0-53.0) % Plt Count 140 L (150-450) k/uL Sodium 132 L (137-145) mmol/L BUN 33 H (9-20) mg/dL Creatinine 1.95 H (0.66-1.25) mg/dL POC Glucose (mg/dL) 119 H (70-110) mg/dL Calcium 7.8 L (8.4-10.2) mg/dL Total Protein 5.0 L (6.3-8.2) g/dL Albumin 3.1 L (3.5-5.0) g/dL Assessment and Plan Assessment: Coronary artery disease, status post 2 vessel CABG on 10/05 Severe mitral regurgitation status post atrial valve repair Hypothyroidism El disease Hypertension Expected postop anemia Mild thrombocytopenia chronic kidney disease stage III Plan: Continue with IV Lasix Continue with Cortef current dose Pain management Continue with metoprolol Cardiology consult Pulmonary consult nephrology consult Cardiothoracic surgery team primary team on the case Labs and medication were reviewed.. Continue same treatment. Continue with symptomatic treatment. Resume home medication. Monitor labs and vitals. DVT and GI prophylaxis. Further recommendations as per clinical course of the patient DVT prophylaxis: Subcutaneous heparin GI Prophylaxis: Ppi Prognosis is guarded
[2022-10-11 04:38] LABS: HCT 24.7 % (39.0-53.0); HGB 8.6 gm/dL (13.0-17.5); Hypochromasia Slight; MCH 32.2 pg (25.0-35.0); MCHC 34.9 g/dL (31.0-37.0); MCV 92.1 fL (80.0-100.0); Mean Platelet Volume 7.3; Platelet Count 167 k/uL (150-450); Poikilocytosis Slight; RBC 2.68 m/uL (4.30-5.90); RDW 15.5 % (11.5-15.5); WBC 6.4 k/uL (3.8-10.6)
[2022-10-11 04:56] LABS: African American GFR (CKD) 40 (>60 ml/min/1.73 sqM); Anion Gap 7 mmol/L; Blood Urea Nitrogen 32 mg/dL (9-20); Calcium 8.1 mg/dL (8.4-10.2); Carbon Dioxide 26 mmol/L (22-30); Chloride 100 mmol/L (98-107); Glucose 77 mg/dL (74-99); Magnesium 2.2 mg/dL (1.6-2.3); Non-African American GFR(CKD) 35 (>60 ml/min/1.73 sqM); Potassium 3.8 mmol/L (3.5-5.1); Sodium 133 mmol/L (137-145)
[2022-10-11] MEDS: LEVOTHYROXINE 75 MCG TAB PO SCH (06:29)
[2022-10-11] MEDS: PANTOPRAZOLE 40 MG TABLET PO SCH (06:29)
[2022-10-11] MEDS: ACETAMINOPHEN TAB 500 MG TAB PO PRN (06:29)
--- NOTE | 2022-10-11 06:37 | XR ---
EXAMINATION TYPE: XR chest 2V DATE OF EXAM: 10/11/2022 6:25 AM COMPARISON: Chest radiographs from 10/02/2022 TECHNIQUE: XR chest 2V Frontal and lateral views of the chest. CLINICAL INDICATION:Male, 72 years old with history of post cardiac surgery; FINDINGS: Lungs/Pleura: Blunting of both costophrenic angles. No pneumothorax or focal consolidation. Pulmonary vascularity: Unremarkable. Heart/mediastinum: Cardiomediastinal silhouette is stable. Cardiac valvular prosthesis. Musculoskeletal: No acute osseous pathology. Midline sternotomy wires are noted and stable. Mild dege nerative changes of the thoracic spine. IMPRESSION: Postoperative changes with trace bilateral pleural effusions.
--- NOTE | 2022-10-11 07:34 | P.PN ---
Subjective Progress Note Date: 10/11/22 Principal diagnosis: Coronary artery disease, severe mitral valve regurgitation. Previous medical history of Sevier's disease, hypertension, hyperlipidemia, chronic kidney disease, history of skin cancer, osteoarthritis, remote history of pneumonia, and lifetime nonsmoker. POD #6 CABG 2 with MIGUEL to LAD, left radial artery to diagonal, mitral valve repair with artificial cords to P2 2 and annuloplasty with a 30 mm AnnuloFlex band. Ligation of the left atrial appendage with a 2 layer running closure of 3-0 Prolene. Endovascular harvest of the left radial artery. LASHAE by anesthesia. Postoperative acute blood loss anemia, expected given cardiopulmonary bypass and hemodilution. Paroxysmal atrial fibrillation, a known common occurrence after cardiac surgery, not a complication. The patient was seen and examined this morning sitting up in a recliner in the intensive care unit in no acute distress. States post surgical pain is controlled on current medication regimen, denies shortness of breath. States he does feel better than postoperative day #1, only real complaint is of being tired. He has been ambulatory in the hallway, showered yesterday. Remains in sinus rhythm with heart rate in the 60-70s, blood pressure stable. Currently on room air with oxygen saturation in the high 90s. Labs, chest x-ray reviewed. Transfer orders placed for stepdown unit, no bed available. Anticipates discharge today and states he feels ready to go home. No other new concerns. Objective - Vital Signs Vital signs: Vital Signs Temp 97.8 F 10/11/22 04:00 Pulse 69 10/11/22 04:00 Resp 15 10/11/22 04:00 BP 132/69 10/11/22 04:00 Pulse Ox 98 10/11/22 04:00 FiO2 50 10/05/22 18:30 Intake & Output 10/10/22 10/11/22 10/11/22 18:59 06:59 18:59 Intake Total 300 500 Output Total 900 Balance 300 -400 Weight 91.1 kg Intake: Oral 300 500 Output: Urine 900 Other: Voiding Method Toilet Toilet # Voids 2 2 # Bowel Movements 1 ABP, PAP, CO, CI - Last Documented Arterial Blood Pressure 100/49 Pulmonary Artery Pressure 23/10 Cardiac Output 5.5 Cardiac Index 2.6 - Exam CONSTITUTIONAL: Appears comfortable, cooperative, no acute distress RESPIRATORY: Lungs sounds clear bilaterally. Respirations even, nonlabored. Currently on room air with oxygen saturation 98%. Able to achieve 1551-5411 mL on incentive spirometry. Strong cough. CARDIOVASCULAR: S1, S2 present. Regular rate and rhythm, sinus rhythm on telemetry. Sternum stable. Palpable peripheral pulses bilaterally. No edema present. No calf pain or tenderness noted. Heart hugger in place with patient demonstrating appropriate use. Antiembolism stockings, SCDs present. GASTROINTESTINAL: Abdomen soft, nontender, nondistended. Active bowel sounds present 4 quadrants. Tolerating diet. Positive bowel movement 10/10/22 GENITOURINARY: Continues to void INTEGUMENTARY: Skin is warm and dry with evidence of good perfusion. Anterior chest incision well approximated. Left radial artery harvest site well approximated without redness or drainage. NEUROLOGIC: Cranial nerves II through XII intact MUSKULOSKELETAL: Able to move all extremities, strength equal bilaterally, gait normal PSYCHIATRIC: Alert and oriented to person place and time, appropriate affect, intact judgment and insight - Allied health notes Allied health notes reviewed: nursing - Labs CBC & Chem 7: 10/11/22 03:58 10/11/22 03:58 Labs: Abnormal Lab Results - Last 24 Hours (Table) 10/10/22 10/11/22 10/11/22 Range/Units 16:00 03:58 03:58 RBC 2.68 L (4.30-5.90) m/uL Hgb 8.6 L (13.0-17.5) gm/dL Hct 24.7 L (39.0-53.0) % Sodium 133 L (137-145) mmol/L BUN 32 H (9-20) mg/dL Creatinine 1.89 H (0.66-1.25) mg/dL POC Glucose (mg/dL) 119 H (70-110) mg/dL Calcium 8.1 L (8.4-10.2) mg/dL - Imaging and Cardiology Chest x-ray: report reviewed, image reviewed Assessment and Plan Assessment: Coronary artery disease, status post 2 vessel CABG Severe mitral valve regurgitation, status post mitral valve repair History of Sevier's disease, on hydrocortisone and Florinef outpatient Hypertension Hyperlipidemia, cholesterol 197, LDL 130 Chronic kidney disease, baseline creatinine 1.4-1.8 History of osteoarthritis History of skin cancer Lifetime nonsmoker Remote history of pneumonia Postoperative acute blood loss anemia, expected Paroxysmal atrial fibrillation, status post ligation of the left atrial appendage, currently sinus rhythm Plan: Continue to maximize medical therapy with statin, Plavix, beta declan. Will increase beta declan as tolerated Continue to hold aspirin as it is a contraindication as the patient has a documented ALLERGY Encourage incentive spirometry use 10 times every hour while awake. Bronchodilators per pulmonology Increase activity, ambulate as tolerated. PT/OT/cardiac rehab following. Patient to shower daily Will monitor daily labs and chest x-rays. Electrolyte replacement protocol. Continue Lasix, potassium GI/DVT prophylaxis Pain control with current medication regimen, patient encouraged asked for pain medication minimum 3 times daily Insulin management per internal medicine service. Patient is not a diabetic with preoperative hemoglobin A1c 4.9%, needs tight blood sugar control to prevent infection and promote healing, patient on chronic steroids Strict in accurate I/O, daily weights Will wean hydrocortisone to patient's home dose today Discharge planning in progress. Anticipate discharge to home with home care today More recommendations to follow based on patient's clinical course
[2022-10-11] MEDS ORDERED: HYDROCORTISONE 10 MG TAB PO SCH (09:00)
[2022-10-11] MEDS: INSULIN ASPART (NovoLOG) 100 UNIT/ML VIAL SQ SCH (09:22)
[2022-10-11] MEDS: HEPARIN SODIUM,PORCINE/PF 5,000 UNIT/0.5 ML SYRINGE SQ SCH (09:22)
[2022-10-11] MEDS: METOPROLOL TARTRATE 25 MG TAB PO SCH (09:24)
[2022-10-11] MEDS: POTASSIUM CHLORIDE ER 20 MEQ TAB.ER PO SCH (09:24)
[2022-10-11] MEDS: ATORVASTATIN 40 MG TAB PO SCH (09:24)
[2022-10-11] MEDS: FUROSEMIDE 20 MG TAB PO SCH (09:24)
[2022-10-11] MEDS: CHOLECALCIFEROL 25 MCG (1000 IU) TABLET PO SCH (09:24)
[2022-10-11] MEDS: CLOPIDOGREL 75 MG TAB PO SCH (09:24)
[2022-10-11] MEDS: FLUDROCORTISONE 0.1 MG TAB PO SCH (09:31)
[2022-10-11] MEDS: SODIUM FERRIC GLUCONAT-SUCROSE 125 MG in SODIUM CHLORIDE 0.9% 100 ML IVPB SCH (10:12)
--- NOTE | 2022-10-11 10:14 | P.PN ---
Subjective This is a pleasant 72 years old male with past medical history of Hypertension, hypothyroidism, El disease Patient with a known coronary artery disease underwent 2 vessel bypass surgery and mitral valve repair Patient currently resting comfortably with no complaint Patient chest pain and dyspnea CONTROLLED Hemodynamically stable None showing mild anemia with hemoglobin 9.1 which is expected Platelet count is 87-95. INR is 1.1 Creatinine 1.5 which is baseline 1.4-1.7 Chest x-ray: No acute process. Check hemoglobin A1c on 10/02/2022 was 4.9 Patient tolerated lying comfortable in the chair, chest tube in place. 10/07/2022 Patient clinically doing well Denies chest pain or dyspnea, no new complaint Hemoglobin 9.4, creatinine 1.7 which is close to baseline Patient was started on IV Lasix 20 mg 3 times a day and also on metoprolol and P lavix burst primary team 10/08/2022 Patient was complaining of from some headache this morning about 6/10 with no weakness numbness or confusion, he wants only Tylenol. Postoperative from some chest pain and stomach upset which is mild and improving. He is hemodynamically stable Creatinine is mildly elevated at 1.7 compared to baseline of 1.3-1.6, has some elements of acute kidney injury, nephrology team were consulted Patient remains on IV Lasix. Also he is on home dose of cooperative, metoprolol 25 mg and Plavix 10/09/2022 Patient improving slowly and gradually Hemoglobin 8.8, creatinine is stable at 1.7 Patient still on Plavix, IV Lasix lower frequency twice a day at 20 mg intravenously Also patient on metoprolol 25 mg 10/10/2022 Patient continued to improve, his sitting in chair relaxed, denies chest pain headache abdominal pain or other symptoms His been told he might be discharged home tomorrow and he thinks this is appropriate. Hemoglobin 8.9, repeat went up to 1.9, mild elevation secondary to diuresis and IV Lasix was switched to oral dose 20 mg daily Possible discharge in 24 hours 10/11/2022 Patient clinically doing well and this morning he denies any chest pain or dy spnea, no abdominal complaints and he tolerated his diet well. Patient denies any new complaint. He thinks he can go home today if he got cleared by medical services. Patient is hemodynamically stable. Labs are still stable with hemoglobin 8.6 and creatinine is slightly less at 1.8. Hemodynamics stable, afebrile Remains on Plavix as patient is ALLERGIC to aspirin. Also his metoprolol and Cortef which was taken at home. Objective - Vital Signs Vital signs: Vital Signs Temp 97.8 F 10/11/22 04:00 Pulse 69 10/11/22 04:00 Resp 15 10/11/22 04:00 BP 132/69 10/11/22 04:00 Pulse Ox 98 10/11/22 04:00 FiO2 50 10/05/22 18:30 Intake & Output 10/10/22 10/11/22 10/11/22 18:59 06:59 18:59 Intake Total 300 500 Output Total 900 Balance 300 -400 Weight 91.1 kg Intake: Oral 300 500 Output: Urine 900 Other: Voiding Method Toilet Toilet # Voids 2 2 # Bowel Movements 1 ABP, PAP, CO, CI - Last Documented Arterial Blood Pressure 100/49 Pulmonary Artery Pressure 23/10 Cardiac Output 5.5 Cardiac Index 2.6 - Exam GENERAL: The patient is alert and oriented x3, not in any acute distress. Well developed, well nourished. HEENT: Pupils are round and equally reacting to light. EOMI. No scleral icterus. No conjunctival pallor. Normocephalic, atraumatic. No pharyngeal erythema. No thyromegaly. CARDIOVASCULAR: S1 and S2 present. No murmurs, rubs, or gallops. PULMONARY: Chest is clear to auscultation, no wheezing , no crackles. ABDOMEN: Soft, nontender, nondistended, normoactive bowel sounds. No palpable organomegaly. MUSCULOSKELETAL: No joint swelling or deformity. EXTREMITIES: No cyanosis, clubbing, or pedal edema. NEUROLOGICAL: Gross neurological examination did not reveal any focal deficits. SKIN: No rashes. no petechiae. - Labs CBC & Chem 7: 10/11/22 03:58 10/11/22 03:58 Labs: Abnormal Lab Results - Last 24 Hours (Table) 10/10/22 10/11/22 10/11/22 Range/Units 16:00 03:58 03:58 RBC 2.68 L (4.30-5.90) m/uL Hgb 8.6 L (13.0-17.5) gm/dL Hct 24.7 L (39.0-53.0) % Sodium 133 L (137-145) mmol/L BUN 32 H (9-20) mg/dL Creatinine 1.89 H (0.66-1.25) mg/dL POC Glucose (mg/dL) 119 H (70-110) mg/dL Calcium 8.1 L (8.4-10.2) mg/dL Assessment and Plan Assessment: Coronary artery disease, status post 2 vessel CABG on 10/05 Severe mitral regurgitation status post atrial valve repair Hypothyroidism Sutter disease Hypertension Expected postop anemia Mild thrombocytopenia chronic kidney disease stage III Plan: Continue with oral Lasix and monitor creatinine Continue with Cortef current dose, deferred to surgery team for management Pain management Continue with metoprolol Cardiology consult Pulmonary consult nephrology consult Cardiothoracic surgery team primary team on the case Labs and medication were reviewed.. Continue same treatment. Continue with symptomatic treatment. Resume home medication. Monitor labs and vitals. DVT and GI prophylaxis. Further recommendations as per clinical course of the patient DVT prophylaxis: Subcutaneous heparin GI Prophylaxis: Ppi Thank you for consulting us
[2022-10-11 10:20] VITALS: BP 117/57; RESP 22; TEMP 98.5
[2022-10-11 10:26] VITALS: PULSE 88
--- NOTE | 2022-10-11 10:52 | P.DS ---
Providers Date of admission: 10/05/22 05:33 Expected date of discharge: 10/11/22 Attending physician: Isidoro Alvarado Consults: 10/05/22 15:00 Consult Physician Routine Consulting Provider: Aileen Seo Consult Reason/Comments: Tactical Air Control Party Manager Consult: post cardiac surgery Do you want consulting provider notified?: Yes Consult Physician Routine Consulting Provider: Armando Escamilla Consult Reason/Comments: Broadcast Field Supervisor Consult: post cardiac surgery;Gaines patient Do you want consulting provider notified?: Yes Consult Physician Routine Consulting Provider: Jennifer Luna Consult Reason/Comments: med mgmt; Margarita patient Do you want consulting provider notified?: Yes 10/08/22 08:28 Consult Physician Routine Consulting Provider: Rosario Townsend Consult Reason/Comments: MEG, CKD Do you want consulting provider notified?: Yes Primary care physician: [facility] Course: FINAL DIAGNOSIS: 1. Coronary artery disease 2. Severe mitral regurgitation 3. El's disease, on hydrocortisone and Florinef outpatient 4. Hypertension 5. Hyperlipidemia, cholesterol 197, LDL 1:30 6. Chronic kidney disease, baseline creatinine 1.4-1.8 7. History of osteoarthritis 8. History of skin cancer 9. Lifetime nonsmoker 10. Remote history of pneumonia 11. Postoperative acute blood loss anemia, expected 12. Paroxysmal atrial fibrillation, currently sinus PRINCIPAL PROCEDURE: 1. Coronary artery bypass 2 with left internal mammary artery to the left anterior descending artery, left radial artery to the diagonal 2. Mitral valve repair with artificial cords to P2 2 and annuloplasty with a 30 mm AnnuloFlex band 3. Ligation of the left atrial appendage with a 2 layer running closure of 3-0 Prolene 4. Endovascular harvest of the left radial artery 5. Intraoperative transesophageal echocardiogram performed by anesthesia HISTORY OF PRESENT ILLNESS: This is a 72-year-old gentleman who follows outpatient with Dr. Tidwell for primary care, Dr. Gaines for cardiology, and Dr. Eason for his El's disease. He was noted to have a heart murmur by his primary care physician and complained of more fatigue than usual in the last year or so. He denied any shortness of breath. He was referred to Dr. Gaines who did an echocardiogram and noted significant mitral regurgitation. Subsequently he underwent heart catheterization and transesophageal echocardiogram. Cardiac catheterization demonstrated proximal LAD stenosis 80- 90% involving the takeoff of a moderate-sized first diagonal branch. Echocardiography showed normal ventricular function, there was P2 prolapse with a ruptured cord and severe eccentric mitral regurgitation. The patient was referred to Dr. Alvarado from cardiothoracic surgery. He was recommended to undergo coronary artery bypass graft surgery along with mitral valve repair. The usual perioperative course was discussed in detail with the patient and his family, all risks and benefits were explained, all questions were answered, and consent was obtained to proceed with surgery. The patient was scheduled for elective surgery at the earliest possible date after obtaining dental clearance. HOSPITAL COURSE: The patient was brought to the hospital on 10/05/22, taken to the preoperative area, prepared in the usual fashion, and subsequently taken to the operating room where Dr. Alvarado performed 2 vessel CABG and mitral valve repair. Upon completion of surgery the patient was transferred to the cardiovascular intensive care unit where he was recovered and monitored hemodynamically. He was extubated, all lines, tubes, and drips were discontinued when appropriate, and transfer orders were placed for 3 S. cardiac stepdown unit, however there was no bed availability and the patient remained on ICU as a stepdown patient until discharge. The patient did develop a brief episode of paroxysmal atrial fibrillation and was placed on amiodarone, however developed bradycardia from amiodarone and it was stopped. His oxygen was titrated down, he continued to work with physical and occupational therapy, he was tolerating oral diet, his pain was controlled, and he was ready to be disch arged to home with [facility] on postoperative day #6. He received written and verbal instruction regarding his medications, activity restrictions, signs and symptoms requiring physician notification, and follow-up appointments. Patient Condition at Discharge: Stable Plan - Discharge Summary Discharge Rx Participant: Yes New Discharge Prescriptions: New Furosemide [Lasix] 20 mg PO DAILY #30 tab Atorvastatin [Lipitor] 40 mg PO DAILY #30 tab Metoprolol Tartrate [Lopressor] 25 mg PO BID #60 tab Clopidogrel [Plavix] 75 mg PO DAILY #30 tab Pantoprazole [Protonix] 40 mg PO AC-BRKFST #30 tab Potassium Chloride ER [K-Dur 20] 20 meq PO DAILY #30 tab Sennosides-Docusate Sodium [Senokot-S] 2 each PO HS PRN tab PRN Reason: Constipation Acetaminophen Tab [Tylenol] 1,000 mg PO Q6HR PRN tab PRN Reason: Fever And/ Or Pain Continue Fludrocortisone [Florinef] 0.1 mg PO DAILY Levothyroxine Sodium [Synthroid] 75 mcg PO DAILY Cholecalciferol [Vitamin D3 (25 Mcg = 1000 Iu)] 2,000 unit PO DAILY Hydrocortisone [Cortef] 10 mg PO W/SUPPER #0 Hydrocortisone [Cortef] 20 mg PO QAM #0 Unk Saw [place] 1,740 mg PO DAILY Unk Biote Testosterone Pellet 1 applic SQ Q150D Discontinued Losartan Potassium [Cozaar] 25 mg PO DAILY Discharge Medication List Cholecalciferol [Vitamin D3 (25 Mcg = 1000 Iu)] 2,000 unit PO DAILY 05/31/17 [History] Fludrocortisone [Florinef] 0.1 mg PO DAILY 05/31/17 [History] Levothyroxine Sodium [Synthroid] 75 mcg PO DAILY 05/31/17 [History] Hydrocortisone [Cortef] 10 mg PO W/SUPPER #0 06/08/17 [Rx] Hydrocortisone [Cortef] 20 mg PO QAM #0 06/08/17 [Rx] Unk Biote Testosterone Pellet 1 applic SQ Q150D 09/19/22 [History] Unk [place] 1,740 mg PO DAILY 09/19/22 [History] Acetaminophen Tab [Tylenol] 1,000 mg PO Q6HR PRN tab 10/11/22 [Rx] Atorvastatin [Lipitor] 40 mg PO DAILY #30 tab 10/11/22 [Rx] Clopidogrel [Plavix] 75 mg PO DAILY #30 tab 10/11/22 [Rx] Furosemide [Lasix] 20 mg PO DAILY #30 tab 10/11/22 [Rx] Metoprolol Tartrate [Lopressor] 25 mg PO BID #60 tab 10/11/22 [Rx] Pantoprazole [Protonix] 40 mg PO AC-BRKFST #30 tab 10/11/22 [Rx] Potassium Chloride ER [K-Dur 20] 20 meq PO DAILY #30 tab 10/11/22 [Rx] Sennosides-Docusate Sodium [Senokot-S] 2 each PO HS PRN tab 10/11/22 [Rx] Follow up Appointment(s)/Referral(s): Delmi Nayak NPC [Nurse Practitioner] - 10/17/22 12:00 pm (You will be seen in the surgeon's office behind the hospital in [facility], [place], [address] Office phone number is ) Rehab Brie PH,Cardiac [NON-STAFF] - 4 Weeks (You will receive a phone call in approximately 4-6 weeks for evaluation for cardiac rehab) Jamie Tidwell DO [Primary Care Provider] - 2 Weeks (Office will call with appointment) [facility] [NON-STAFF] - 1-2 Days (To be seen the day after discharge, then 2-3 times per week for 4 weeks) Luan Eason MD [REFERRING] - 10/25/22 1:45 pm Shashi Gaines DO [STAFF PHYSICIAN] - 10/26/22 9:45 am Isidoro Alvarado MD [STAFF PHYSICIAN] - 11/01/22 1:00 pm Aileen Seo MD [STAFF PHYSICIAN] - 10/30/22 10:00 am Ambulatory/Diagnostic Orders: Complete Blood Count w/diff [LAB.AMB] Time Frame: 3 Days, Location: None Selected Comprehensive Metabolic Panel [LAB.AMB] Time Frame: 3 Days, Location: None Selected Activity/Diet/Wound Care/Special Instructions: DISCHARGE INSTRUCTIONS: 1. No driving for 4 weeks, or until physician gives their ok. 2. The patient should sleep in their own bed, no medical bed needed. 3. Stairs are not an issue. If the bedroom is upstairs, it is advised that the patient go up at night and down in the morning for the first week. Go slowly, using handrail and take 1 step at a time. 4. NAVA hose are to be worn for 30 days post surgery or until physician discontinues. 5. Heart hugger is to be worn 100% of the time until physician discontinues.(except when showering) 6. No lifting, pushing, or pulling more than 10 pounds for 12 weeks. The physician will advise of any restriction changes. 7. The patient is expected to continue the prescribed walking program. 8. Continue pain control per as needed orders. 9. Continue with incentive spirometry and splinting/heart hugger until otherwise directed by the physician. 10. Must shower daily using liquid antibacterial soap 11. Routine sternal incision care. No powders, lotions, ointments on incisions. No dressings are necessary on incisions unless they are draining. Dermabond tape is to remain on sternal incision until surgeon follow-up. 12. Please call surgeon/FISHERIES INSPECTOR for temp greater than 101 F or purulent drainage from incisions. 13. You should weigh yourself daily, record and bring log with you to follow up appointments. 14. All prescriptions given by surgeon for 30 days. Refills need to be filled through gun stocker/primary care physician. 15. A Red armband has been placed on the patient. It should be worn for 30 days post discharge from surgery and will be removed by the cardiac surgeons. If an ER visit is necessary, please make sure the number on the Red armband is called before going to ER. 16. You have been referred to and are expected to begin Cardiac Rehab in approximately 4-6 weeks. HOME HEALTH SERVICES TO PROVIDE: RN SKILLED HOME CARE SERVICES FOR POST-OP SURGICAL PATIENTS WITH THE FO LLOWING: Coronary Artery Bypass Surgery (CABG), Mitral Valve Replacement/Repair ( MVR), Aortic Valve Replacement/Repair (AVR) RN TO CONTINUE EDUCATION FROM ``ROAD TO A HEALTH HEART PATIENT EDUCATION MANUAL (GIVEN TO PATIENT IN THE HOSPITAL) MEDICATION RECONCILIATION WITH EDUCATION NEEDED ON FIRST HOME VISIT EMPHASIZE IMPORTANCE OF WEARING BREAST SUPPORT/HEART HUGGER ENCOURAGE USE OF INCENTIVE SPIROMETER 10 X EVERY HOUR WHILE AWAKE ENCOURAGE UTILIZATION OF LOWER EXTREMITY COMPRESSION STOCKINGS/NAVA HOSE and ELEVATE LEGS ABOVE LEVEL OF HEART WHILE AT REST. ENCOURAGE AMBULATION 3-5x/day INCREASING TOLERATES, WHILE AVOIDING EXTREMES IN TEMPERATURE FREQUENCY: RN TO OPEN THE PATIENT WITHIN 24 HOURS OF DISCHARGE FROM THE HOSPITAL WITH [place]LEHEALTH [place] [facility] [place]IT 2-3 X A WEEK FOR 4 WEEKS ESTABLISHED BY PATIENT NEEDS. LABORATORY: CBC, CMP TO BE DRAWN ON THE THIRD DAY HOME, (RAN STAT) FAX RESULTS TO [phone]. TELEHEALTH PARAMETERS: WEIGHT: NOTIFY MD OF WEIGHT GAIN OF 2 LBS IN 24 HOURS OR 5 LBS IN ONE WEEK HR: NOTIFY MD OF HR <55 BPM OR HR>100 BPM BP: NOTIFY MD IF BP <90/55 OR BP>140/100 O2 SAT: NOTIFY MD IF PO2<93% ON ROOM AIR SEND TELEHEALTH REPORT TO HEEL ROOM SUPERVISOR AND CARDIOVASCULAR SURGEON THE FIRST WEEK OF CARE AND THEN BI-WEEKLY. PLEASE ADDITIONALLY COMMUNICATE ANY ABNORMALS AND NEW FINDINGS TO THE SURGEONS OFFICE. Discharge Disposition: HOME WITH HOME HEALTH SERVICES
--- NOTE | 2022-10-11 11:41 | P.PN ---
Subjective Progress Note Date: 10/11/22 Principal diagnosis: POD #6 CABG 2 with MIGUEL to LAD, left radial artery to diagonal, mitral valve repair with artificial cords to P2 2 and annuloplasty with a 30 mm AnnuloFlex band. Ligation of the left atrial appendage with a 2 layer running closure of 3-0 Prolene. Endovascular harvest of the left radial artery. LASHAE by anesthesia. POD #3 CABG 3 with MIGUEL to LAD, left radial artery to diagonal, mitral valve repair with artificial cords to P2 2 and annuloplasty with a 30 mm AnnuloFlex band. Ligation of the left atrial appendage with a 2 layer running closure of 3-0 Prolene. Endovascular harvest of the left radial artery. LASHAE by anesthesia. Patient was reevaluated today on 10/08/2022, remains in the ICU, not in any distress, he is on room air and O2 saturations 94-98%. Achieving over 1500 mL in incentive spirometry. Patient has normal sinus rhythm, chest x-ray is reassuring, small tiny left apical pneumothorax present but the chest tube on the left side is also present minimal basilar atelectasis is noted, no evidence of pneumonia. CBC is unremarkable, hemoglobin is 8.8 electrolytes are normal BUN is 52 creatinine 1.78, patient apparently sees Dr. Solorzano on a regular basis for his underlying chronic kidney disease. Reevaluated today on 10/09/22, patient is postoperative day #4.CABG 2 with MIGUEL to LAD, left radial artery to diagonal, mitral valve repair with artificial cords to P2 2 and annuloplasty with a 30 mm AnnuloFlex band. Ligation of the left atrial appendage with a 2 layer running closure of 3-0 Prolene. Endovascular harvest of the left radial artery. LASHAE by anesthesia. Patient seems to be doing fairly well, no major issues, not on any major drips, he did have an episode of anxiety last night and he responded well to Xanax. His left sided chest tube was removed yesterday without any incident. Patient remains on room air, doing extremely well with incentive spirometry ACHIEVING [id number] mL. Patient is hemodynamically stable, not requiring any inotropes or any pressors. Chest x-ray showed mostly postoperative changes with small bilateral pleural effusions. Could not appreciate any pneumothorax. Labs today are un remarkable except for creatinine 1.71, slightly better compared to yesterday. Reevaluated today on 10/10/2022, patient is now postoperative day #5 overall the patient is doing great, relatively asymptomatic except for some postsurgical pain, denies any shortness of breath, he is presently on room air. Ambulating intermittently in the hallway. Hemodynamically stable, blood pressure is stable. Chest x-ray is reassuring. Overall the patient is doing extremely well. Reevaluated today on 10/11/2022, patient is now postoperative day #6. Patient is doing great, relatively asymptomatic, currently on room air, chest x-ray is reassuring, patient is not in any distress. Minimal pain postsurgical otherwise patient is doing quite well. He is being considered for discharge home today. CBC is relatively normal hemoglobin is 8.6 electrolytes are normal renal profile is slightly worse with creatinine of 1.89 being addressed by nephrology Objective - Vital Signs Vital signs: Vital Signs Temp 98.5 F 10/11/22 08:30 Pulse 70 10/11/22 08:30 Resp 22 10/11/22 08:30 BP 117/57 10/11/22 08:30 Pulse Ox 97 10/11/22 08:30 FiO2 50 10/05/22 18:30 Intake & Output 10/10/22 10/11/22 10/11/22 18:59 06:59 18:59 Intake Total 300 500 Output Total 900 Balance 300 -400 Weight 91.1 kg Intake: Oral 300 500 Output: Urine 900 Other: Voiding Method Toilet Toilet Toilet # Voids 2 2 # Bowel Movements 1 ABP, PAP, CO, CI - Last Documented Arterial Blood Pressure 100/49 Pulmonary Artery Pressure 23/10 Cardiac Output 5.5 Cardiac Index 2.6 - Exam GENERAL: Revealed a 72-year-old white male in no distress, on room air. HEENT: The left, EOMI, nonicteric, no neck masses no JVD. CARDIOVASCULAR: S1 and S2 present. No murmurs, rubs, or gallops. PULMONARY: Chest is clear to auscultation, no wheezing , no crackles. ABDOMENsoft nontender no megaly no rebound no guarding. MUSCULOSKELETAL: No joint swelling or deformity. EXTREMITIES: No cyanosis, clubbing, or pedal edema. NEUROLOGICAL: Gross neurological examination did not reveal any focal deficits. SKIN: No rashes. no petechiae. - Labs CBC & Chem 7: 10/11/22 03:58 10/11/22 03:58 Labs: Abnormal Lab Results - Last 24 Hours (Table) 10/10/22 10/11/22 10/11/22 Range/Units 16:00 03:58 03:58 RBC 2.68 L (4.30-5.90) m/uL Hgb 8.6 L (13.0-17.5) gm/dL Hct 24.7 L (39.0-53.0) % Sodium 133 L (137-145) mmol/L BUN 32 H (9-20) mg/dL Creatinine 1.89 H (0.66-1.25) mg/dL POC Glucose (mg/dL) 119 H (70-110) mg/dL Calcium 8.1 L (8.4-10.2) mg/dL Assessment and Plan Assessment: Impression:CABG 2 with MIGUEL to LAD, left radial artery to diagonal, mitral valve repair with artificial cords to P2 2 and annuloplasty with a 30 mm AnnuloFlex band. The patient is currently postop day #6 Postoperative left apical pneumothorax, small, expected. Resolved based on ch est x-ray today. History of mitral valve regurgitation, status post mitral valve repair History of El's disease, on hydrocortisone. Hypothyroidism Benign essential hypertension Dyslipidemia Chronic kidney disease stage III, follows on a regular basis with nephrology Type 2 diabetes, on insulin. Lifetime nonsmoker Postoperative anemia, expected secondary to blood loss. Recommendation: Continue incentive spirometry Continue oral hydrocortisone, patient is on his usual dose of hydrocortisone. Continue ambulation Continue Plavix and beta blockers as well as statins, maximize medical therapy. Continue to hold aspirin as the patient had documented ALLERGY Clear for discharge today. Follow-up on outpatient basis Time with Patient: Less than 30
--- NOTE | 2022-10-11 11:53 | P.PN ---
Subjective Patient is seen for follow-up for CK D stage III a with baseline creatinine around 1.5 mg/dL. Patient is status post CABG 2 and mitral valve repair on 10/05/2022. Serum creatinine increased to 1.9 yesterday and Lasix was switched to oral. Serum creatinine at 1.89 today Patient has had good urine output No complaints of shortness of breath. Objective - Vital Signs Vital signs: Vital Signs Temp 98.5 F 10/11/22 08:30 Pulse 70 10/11/22 08:30 Resp 22 10/11/22 08:30 BP 117/57 10/11/22 08:30 Pulse Ox 97 10/11/22 08:30 FiO2 50 10/05/22 18:30 Intake & Output 10/10/22 10/11/22 10/11/22 18:59 06:59 18:59 Intake Total 300 500 Output Total 900 Balance 300 -400 Weight 91.1 kg Intake: Oral 300 500 Output: Urine 900 Other: Voiding Method Toilet Toilet Toilet # Voids 2 2 # Bowel Movements 1 ABP, PAP, CO, CI - Last Documented Arterial Blood Pressure 100/49 Pulmonary Artery Pressure 23/10 Cardiac Output 5.5 Cardiac Index 2.6 - Exam Patient is awake, comfortable, no acute distress Alert oriented 3 Examination of the heart S1 and S2 Examination lungs bilateral breath sounds are heard Examination lower extremity shows no significant edema CHEESE MAKER exam grossly intact - Labs CBC & Chem 7: 10/11/22 03:58 10/11/22 03:58 Labs: Abnormal Lab Results - Last 24 Hours (Table) 10/10/22 10/11/22 10/11/22 Range/Units 16:00 03:58 03:58 RBC 2.68 L (4.30-5.90) m/uL Hgb 8.6 L (13.0-17.5) gm/dL Hct 24.7 L (39.0-53.0) % Sodium 133 L (137-145) mmol/L BUN 32 H (9-20) mg/dL Creatinine 1.89 H (0.66-1.25) mg/dL POC Glucose (mg/dL) 119 H (70-110) mg/dL Calcium 8.1 L (8.4-10.2) mg/dL Assessment and Plan Assessment: 1. Acute kidney injury ATN currently nonoliguric, mostly hemodynamic. UA is completely benign on 10/02/2022. Serum creatinine increased last couple of days due to recent diuresis. Diuretics have been decreased 2. CK D stage III a secondary to nephrosclerosis with baseline creatinine around 1.5 mg/dL 3. Status post coronary artery bypass surgery 2 and mitral valve repair on 10/05/2022 4. Anemia multifactorial, rule out iron deficiency 5. History of [place]'s disease maintained on hydrocortisone Plan: Continue with current dose of oral Lasix. Follow-up as outpatient in about 2 weeks
--- NOTE | 2022-10-11 14:23 | PN ---
PROGRESS NOTE HISTORY OF PRESENT ILLNESS: Jose Francisco is a 72-year-old gentleman who is admitted to the hospital for coronary artery disease, status post 2-vessel bypass, mitral regurgitation status post mitral valve repair. He is doing well and ready to be discharged home. He will follow up with Dr. Gaines in the office, currently on Lipitor, Plavix, Florinef, Lortab, Synthroid, Lopressor, Protonix and K-Dur. He remains in sinus rhythm. PHYSICAL EXAMINATION: GENERAL: On exam, comfortable at rest. VITAL SIGNS: Stable. CHEST: Reveals good air entry bilaterally. HEART: Reveals first and second heart sounds. No gallop. No murmur. EXTREMITIES: Exam of extremities did not reveal any edema. ASSESSMENT: Coronary artery disease, status post coronary artery bypass grafting; mitral regurgitation status post mitral valve repair and renal insufficiency. PLAN: The patient is stable for discharge and followup with Cardiology. MMODL / IJN: [id number] /
== END 2022-10-11 12:52 | disposition home health service (06) | DRG 219 ==
LOC: 2ORMAIN 05:33 → 2SICU 14:18
PROVIDERS: ADMIT Thoracic Surgery (Cardiothoracic Vascular Surgery); ATTEND Thoracic Surgery (Cardiothoracic Vascular Surgery)
PROC: 03BC4ZZ Excision of Left Radial Artery, Percutaneous Endoscopic Approach (ICD-10-PCS; 2022-10-05)
PROC: 02100A3 Bypass Coronary Artery, One Artery from Coronary Artery with Autologous Arterial Tissue, Open Approach (ICD-10-PCS; 2022-10-05)
PROC: 02100A9 Bypass Coronary Artery, One Artery from Left Internal Mammary with Autologous Arterial Tissue, Open Approach (ICD-10-PCS; 2022-10-05)
PROC: 5A1221Z Performance of Cardiac Output, Continuous (ICD-10-PCS; 2022-10-05)
PROC: 02L70CK Occlusion of Left Atrial Appendage with Extraluminal Device, Open Approach (ICD-10-PCS; 2022-10-05)
PROC: 5A2204Z Restoration of Cardiac Rhythm, Single (ICD-10-PCS; 2022-10-05)
PROC: 30233J1 Transfusion of Nonautologous Serum Albumin into Peripheral Vein, Percutaneous Approach (ICD-10-PCS; 2022-10-05)
PROC: 3E033XZ Introduction of Vasopressor into Peripheral Vein, Percutaneous Approach (ICD-10-PCS; 2022-10-05)
PROC: 02UG0JZ Supplement Mitral Valve with Synthetic Substitute, Open Approach (ICD-10-PCS; principal; 2022-10-05 08:00)
PROC: 03B Upper Arteries, Excision (ICD-10-PCS; 2022-10-05 08:00)
DX: I34.0 Nonrheumatic mitral (valve) insufficiency (principal); N17.0 Acute kidney failure with tubular necrosis; E27.5 Adrenomedullary hyperfunction; E27.1 Primary adrenocortical insufficiency; J93.83 Other pneumothorax; D62 Acute posthemorrhagic anemia; D69.6 Thrombocytopenia, unspecified; E11.22 Type 2 diabetes mellitus with diabetic chronic kidney disease; I77.1 Stricture of artery; N18.31 Chronic kidney disease, stage 3a; E03.9 Hypothyroidism, unspecified; I34.1 Nonrheumatic mitral (valve) prolapse; I48.0 Paroxysmal atrial fibrillation; I12.9 Hypertensive chronic kidney disease with stage 1 through stage 4 chronic kidney disease, or unspecified chronic kidney disease; I25.10 Atherosclerotic heart disease of native coronary artery without angina pectoris; R00.1 Bradycardia, unspecified; E78.5 Hyperlipidemia, unspecified; K30 Functional dyspepsia; T50.2X5A Adverse effect of carbonic-anhydrase inhibitors, benzothiadiazides and other diuretics, initial encounter; T46.2X5A Adverse effect of other antidysrhythmic drugs, initial encounter; M19.90 Unspecified osteoarthritis, unspecified site; R01.1 Cardiac murmur, unspecified; Z96.651 Presence of right artificial knee joint; Z79.52 Long term (current) use of systemic steroids; Z79.890 Hormone replacement therapy; Z79.899 Other long term (current) drug therapy; Z88.0 Allergy status to penicillin; Z88.6 Allergy status to analgesic agent; Z82.49 Family history of ischemic heart disease and other diseases of the circulatory system
CPT/HCPCS: 36415; 71045; 71046; 80048; 80053; 81003; 82330; 82805; 83540; 83550; 83735; 84132; 85025; 85027; 85610; 85730; 86850; 86891; 86900; 86901; 86920; 87070; 87086; 88305; 93005; 94002; 94150; 94640

== ENCOUNTER 2022-10-13 16:01 | Emergency (ER) | payer MEDICARE ==
--- NOTE | 2022-10-13 17:28 | US ---
EXAMINATION TYPE: US venous doppler duplex UE RT DATE OF EXAM: 10/13/2022 COMPARISON: NONE CLINICAL INDICATION: Male, 72 years old with history of swelling s/p IV; Recent open heart. Patient doesn't know if he is on blood thinners. Redness and hard at IV site from wrist to antecub. SIDE PERFORMED: Right Right Arm: Negative for DVT. Positive for SVT at patients area of concern- superior wrist to inferio r antecubital region. The deep venous system of the right upper extremity including the right subclavian vein, axillary vei n and brachial veins are patent and compressible with augmentable flow and no evidence of DVT. There is a thrombosed vein in the right forearm consistent with SVT. IMPRESSION: 1. No evidence of right upper extremity DVT. 2. SVT in the right forearm..
--- NOTE | 2022-10-13 17:46 | ED ---
Extremity Problem HPI - General Chief complaint: Extremity Problem,Nontraumatic Stated complaint: Rt arm edema Time Seen by Provider: 10/13/22 16:23 Source: patient Mode of arrival: ambulatory Limitations: no limitations - History of Present Illness Initial comments: Patient is a 72-year-old male presents to the emergency department for right arm swelling. Patient had open heart surgery on 10/05 states his he was discharged on the . Patient noticed redness and swelling in his arm near his IV site after discharge. He reports mild pain. Denies fever, chills, nausea, vomiting. Denies chest pain and shortness of breath. Denies history of DVT and PE. Patient is on Plavix. - Related Data Home Medications Medication Instructions Recorded Confirmed Cholecalciferol [Vitamin D3 (25 2,000 unit PO DAILY 05/31/17 10/05/22 Mcg = 1000 Iu)] Fludrocortisone [Florinef] 0.1 mg PO DAILY 05/31/17 10/05/22 Levothyroxine Sodium [Synthroid] 75 mcg PO DAILY 05/31/17 10/05/22 Unk Biote Testosterone Pellet 1 applic SQ Q150D 09/19/22 10/05/22 Unk Saw Thida 1,740 mg PO DAILY 09/19/22 10/05/22 Previous Rx's Medication Instructions Recorded Hydrocortisone [Cortef] 10 mg PO W/SUPPER #0 06/08/17 Hydrocortisone [Cortef] 20 mg PO QAM #0 06/08/17 Acetaminophen Tab [Tylenol] 1,000 mg PO Q6HR PRN tab 10/11/22 Atorvastatin [Lipitor] 40 mg PO DAILY #30 tab 10/11/22 Clopidogrel [Plavix] 75 mg PO DAILY #30 tab 10/11/22 Furosemide [Lasix] 20 mg PO DAILY #30 tab 10/11/22 Metoprolol Tartrate [Lopressor] 25 mg PO BID #60 tab 10/11/22 Pantoprazole [Protonix] 40 mg PO AC-BRKFST #30 tab 10/11/22 Potassium Chloride ER [K-Dur 20] 20 meq PO DAILY #30 tab 10/11/22 Sennosides-Docusate Sodium 2 each PO HS PRN tab 10/11/22 [Senokot-S] Allergies Allergy/AdvReac Type Severity Reaction Status Date / Time Penicillins AdvReac Unknown Unknown Verified 10/13/22 16:06 Review of Systems ROS Statement: Those systems with pertinent positive or pertinent negative responses have been documented in the HPI. ROS Other: All systems not noted in ROS Statement are negative. Past Medical History Past Medical History: Hypertension, Thyroid Disorder Additional Past Medical History / Comment(s): addisons disease, low testosterone, family hx of ID, recent u/s showed leaky valve. hx of asthma as a child. enlarged spleen (Gurvinder). borderline kidney issues. sees Mark History of Any Multi-Drug Resistant Organisms: None Reported Past Surgical History: Hernia Repair, Joint Replacement, Orthopedic Surgery, Tonsillectomy Additional Past Surgical History / Comment(s): Bypass Past Anesthesia/Blood Transfusion Reactions: No Reported Reaction Past Psychological History: No Psychological Hx Reported Smoking Status: Never smoker Past Alcohol Use History: None Reported Past Drug Use History: None Reported - Past Family History Mother Family Medical History: No Reported History family Family Medical History: Coronary Artery Disease (CAD) General Exam Limitations: no limitations General appearance: alert, in no apparent distress Head exam: Present: atraumatic, normocephalic, normal inspection Respiratory exam: Present: normal lung sounds bilaterally. Absent: respiratory distress, wheezes, rales, rhonchi, stridor Cardiovascular Exam: Present: regular rate, normal rhythm, normal heart sounds. Absent: systolic murmur, diastolic murmur, rubs, gallop, clicks Extremities exam: Present: other (erythema and palpable cord of right forearm inferior antecubital region. no warmth blanching fluctuance or tenderness. neurovascularly intact full ROM ) Neurological exam: Present: alert, oriented X3, CN II-XII intact Psychiatric exam: Present: normal affect, normal mood Skin exam: Present: warm, dry, intact, normal color. Absent: rash Course Vital Signs 10/13/22 10/13/22 16:03 17:54 Temperature 98.5 F 98.7 F Pulse Rate 86 73 Respiratory 20 19 Rate Blood Pressure 108/56 134/73 O2 Sat by Pulse 99 95 Oximetry Medical Decision Making - Medical Decision Making Was pt. sent in by a medical professional or institution (, PA, [employer], urgent care, hospital, or group home...) When possible be specific @ -No Did you speak to anyone other than the patient for history (EMS, parent, family, police, friend...)? What history was obtained from this source @ -No Did you review nursing and triage notes (agree or disagree)? Why? @ -I reviewed and agree with nursing and triage notes Were old charts reviewed (outside hosp., previous admission, EMS record, old EKG, old radiological studies, urgent care reports/EKG's, group home records)? Report findings @ -No old charts were reviewed Differential Diagnosis (chest pain, altered mental status, abdominal pain women, abdominal pain men, vaginal bleeding, weakness, fever, dyspnea, syncope, headache, dizziness, GI bleed, back pain, seizure, CVA, palpatations, mental health)? @ -DVT, cellulitis, superficial thrombophlebitis EKG interpreted by me (3pts min.). @ -None X-rays interpreted by me (1pt min.). @ -None done CT interpreted by me (1pt min.). @ -None done U/S interpreted by me (1pt. min.). @ -None done What testing was considered but not performed or refused? (CT, X-rays, U/S, labs)? Why? @ -None What meds were considered but not given or refused? Why? @ -None Did you discuss the management of the patient with other professionals (professionals i.e. , PA, [employer], lab, RT, psych nurse, social professionals, tape fastener machine operator, teacher, upscale security officer, pillowcase maker)? Give summary @ -No Was smoking cessation discussed for >3mins.? @ -No Was critical care preformed (if so, how long)? @ -No Were there social determinants of health that impacted care today? How? (Homelessness, low income, unemployed, alcoholism, drug addiction, transportation, low edu. Level, literacy, decrease access to med. care, skilled nursing, rehab)? @ -No Was there de-escalation of care discussed even if they declined (Discuss DNR or withdrawal of care, Hospice)? DNR status @ -No What co-morbidities impacted this encounter? (DM, HTN, Smoking, COPD, CAD, Cancer, CVA, ARF, Chemo, Hep., AIDS, mental health diagnosis, sleep apnea, morbid obesity)? @ -None Was patient admitted / discharged? Hospital course, mention meds given and route, prescriptions, significant lab abnormalities, going to OR and other pertinent info. @ -Discharged patient has superficial thrombophlebitis no overlying infection. No chest pain or SOB. We discussed symptomatic treatment at home. Patient cannot take anti-inflammatory medication currently. He'll apply warm compresses and follow-up with his primary care provider. Return parameters discussed Undiagnosed new problem with uncertain prognosis? @ -No Drug Therapy requiring intensive monitoring for toxicity (Heparin, Nitro, Insulin, Cardizem)? @ -No Were any procedures done? @ -No Diagnosis/symptom? @ -superficial thrombophlebitis Acute, or Chronic, or Acute on Chronic? @ -acute Uncomplicated (without systemic symptoms) or Complicated (systemic symptoms)? @ -uncomplicated Side effects of treatment? @ -No Exacerbation, Progression, or Severe Exacerbation? @ -No Poses a threat to life or bodily function? How? (Chest pain, [place], ID, pneumonia, PE, COPD, DKA, ARF, appy, cholecystitis, CVA, Diverticulitis, Homicidal, Suicidal, threat to staff... and all critical care pts) @ -No Dr. High is my attending Disposition Clinical Impression: Superficial thrombophlebitis Disposition: HOME SELF-CARE Condition: Good Instructions (If sedation given, give patient instructions): Superficial Thrombophlebitis (ED) Additional Instructions: Apply warm compress. Follow-up with primary care provider in one to 2 days. Return to the emergency department if you experience new, concerning, or worsening symptoms. Is patient prescribed a controlled substance at d/c from ED?: No Referrals: Jamie Tidwell DO [Primary Care Provider] - 1-2 days
[2022-10-13 17:55] VITALS: BP 134/73; PULSE 73; RESP 19; TEMP 98.7
== END 2022-10-13 17:55 | disposition home or self-care (01) ==
LOC: EC 16:01
DX: I80.8 Phlebitis and thrombophlebitis of other sites (principal); I10 Essential (primary) hypertension; E07.9 Disorder of thyroid, unspecified; Z88.0 Allergy status to penicillin; Z79.890 Hormone replacement therapy; Z79.899 Other long term (current) drug therapy
CPT/HCPCS: 99283

== ENCOUNTER 2022-11-13 10:32 | Day surgery (SDC) | payer MEDICARE ==
[2022-11-13] MEDS ORDERED: LACTATED RINGERS 1,000 ML IV ONE (10:57)
[2022-11-13 11:09] VITALS: TEMP 97.7
[2022-11-13 11:17] LABS: Glucose,Whole Blood 89 mg/dL (70-110)
[2022-11-13 11:44] VITALS: RESP 16
[2022-11-13] MEDS ORDERED: BENZOCAINE SPRAY 1 CAN TOPICAL ONE (11:55)
[2022-11-13] MEDS ORDERED: PROPOFOL 10 MG/ML 20 ML VIAL IV ONE (11:58)
--- NOTE | 2022-11-13 13:05 | P.TEE ---
Description of Procedure(s): Procedure performed: Transesophageal Echocardiogram with color flow doppler, pulsed wave doppler and continuous wave doppler, synchronized cardioversion Moderate conscious sedation: Moderate conscious sedation was supplied by anesthesia, see separate report. Complications: none Indications: Atrial flutter PROCEDURE: After the risks, benefits and alternatives of the above mentioned procedure was explained in detail with the patient, informed consent was obtained. Patient was brought to the lab in a fasting state. Patient was given IV Versed and Fentanyl for sedation. The throat was sprayed with Hurricane to anesthetize the throat. A lubricated Omni probe was then introduced into the esophagus and stomach and multiple views were obtained. 2D echo with color flow doppler, pulsed wave doppler and continuous wave doppler was utilized. Agitated saline bubbles were injected to assess for any intra-atrial shunt. The probe was then removed. There was no thrombus noted and therefore patient underwent synchronized cardioversion x 1 with 200J with resultant sinus rhythm. Patient tolerated the procedure well. Patient was transferred to the post procedure area in stable and satisfactory condition. FINDINGS: 1. The aortic valve is tricuspid with normal function. 2. The mitral valve has a repair and ring with trace mitral regurgitation. 3. Tricuspid valve appears to be normal. 4. The interatrial septum is intact. No evidence of PFO. 5. Left atrial appendage is ligated however there is color flow in the appendage closure. No left atrial thrombus noted 6. Left ventricular ejection fraction 50-55%.
[2022-11-13 14:19] VITALS: BP 151/89; PULSE 77
== END 2022-11-13 13:50 | disposition home or self-care (01) ==
LOC: OR 10:32
PROVIDERS: ATTEND Internal Medicine
DX: I48.92 Unspecified atrial flutter (principal); I34.0 Nonrheumatic mitral (valve) insufficiency; I10 Essential (primary) hypertension; E78.5 Hyperlipidemia, unspecified; E11.9 Type 2 diabetes mellitus without complications; Z79.899 Other long term (current) drug therapy
CPT/HCPCS: 93312; 93320; 93325; 92960; J2704

== ENCOUNTER → 2022-12-14 | Outpatient (CLI) | payer MEDICARE ==
--- NOTE | 2022-12-14 12:54 | CT ---
EXAMINATION TYPE: CT knee RT wo con DATE OF EXAM: 12/14/2022 COMPARISON: None HISTORY: 72-year-old male M25.361, Right knee pain, no injury. Internal derangement. TECHNIQUE: Contiguous axial scanning of the right knee without IV contrast. Coronal and sagittal mattie nstructions performed. 3-D reconstructions generated on a dedicated independent workstation. CT DLP: 586.2 mGycm Automated exposure control for dose reduction was used. FINDINGS: There is a right total knee arthroplasty. No periprosthetic lucency or periprosthetic fracture is see n. Small joint effusion. There is bony debris within suprapatellar pouch. The patella remains approximat arabella 6 with along the prosthetic trochlear groove. Extensor mechanism appears intact. No periarticular fluid collection is identified. IMPRESSION: 1. RIGHT TOTAL KNEE ARTHROPLASTY WITHOUT CT EVIDENCE FOR PERIPROSTHETIC FRACTURE OR LOOSENING. 2. SMALL JOINT EFFUSION WITH PROMINENT BONY DEBRIS IN THE SUPRAPATELLAR POUCH.
== END | disposition home or self-care (01) ==
LOC: RADCTMAIN 08:31
PROVIDERS: ATTEND Orthopaedic Surgery
DX: M25.361 Other instability, right knee (principal); M25.461 Effusion, right knee; Z96.651 Presence of right artificial knee joint